=== PATIENT | male | born 1960 | race Caucasian/White ===

== ENCOUNTER 2016-09-13 12:48 | Inpatient (IN) ==
[2016-09-13] MEDS ORDERED: 0.9 % Sodium Chloride 1,000 ML IVC ONE ×2 (13:25→13:55)
[2016-09-13] MEDS ORDERED: *HR* Morphine 2 MG/ML SYRINGE IVP ONE (13:25)
[2016-09-13] MEDS ORDERED: Ondansetron 4 MG/2 ML VIAL IVP ONE (13:25)
[2016-09-13 13:29] LABS: Basophils % 0.2 %; Eosinophils # 0.5 K/mcL (0.0-0.6); Eosinophils % 2.8 %; Hematocrit 36.1 % (37.5-50.1); Hemoglobin 11.1 g/dL (12.9-16.9); Immature Granulocytes % 1.2 % (0-4); Lymphocytes # 0.9 K/mcL (0.6-4.6); Lymphocytes % 5.4 %; Mean Corpuscular HGB Conc 30.7 g/dL (31.6-35.5); Mean Corpuscular Hemoglobin 22.3 pg (28.0-33.3); Mean Corpuscular Volume 72.5 fL (83.0-100.0); Mean Platelet Volume 9.3 fL (9.4-12.4); Monocytes # 1.4 K/mcL (0.0-1.3); Monocytes % 8.4 %; Neutrophils # 13.9 K/mcL (1.6-8.9); Platelet Count 598 K/mcL (140-400); Red Blood Count 4.98 M/mcL (4.19-5.50)
[2016-09-13] MEDS ORDERED: Ipratropium/Albuterol Neb 3 ML IH ONE (13:34)
--- NOTE | 2016-09-13 13:38 | Emergency Department Note ---
Disposition Clinical Impression: Liver metastases Abdominal pain Qualifiers: Abdominal location: generalized Qualified Code(s): R10.84 - Generalized abdominal pain Leukocytosis Qualifiers: Leukocytosis type: other Qualified Code(s): D72.828 - Other elevated white blood cell count BC (bronchogenic carcinoma) Qualifiers: Laterality: unspecified laterality Qualified Code(s): C34.90 - Malignant neoplasm of unspecified part of unspecified bronchus or lung Disposition: Admitted As Inpatient Condition: Fair Abdominal Pain HPI - General Chief Complaint: ED Abdominal Pain Stated Complaint: Abdominal Pain/SOB Time Seen by Provider: 09/13/16 13:05 Source: patient, family Mode of arrival: ambulatory Limitations: no limitations Nursing Notes Reviewed: Yes Vital Signs Reviewed: Yes - History of Present Illness HPI Narrative: 56 year old gentleman history of COPD, hypertension, coronary artery disease presents for evaluation of worsening abdominal pain. Patient states the abdominal pain is sharp and noticed it over the past 3 weeks. Notes that the pain is primarily left lower quadrant but noted to be more diffuse. No aggravating or alleviating factors. No history of diverticulosis. No history of appendectomy and cholecystectomy. Subjective fevers. Reports some nausea and spitting up. Patient also notes some blood in his stool. No history of GI bleed. No anticoagulation besides aspirin and Plavix. No diarrhea or constipation. No dysuria or hematuria. Patient does state that he has a history of COPD oxygen dependent. Patient was recently treated for pneumonia approximately a month ago. Patient denies any chest pain but does note dyspnea. Patient does have a history of right [id number] amputation from a traumatic injury in the past. Pain Scale: 10 - Related Data Home Medications Medication Instructions Recorded Confirmed Albuterol Sulfate [Proair Hfa] 2 puff IH Q6H PRN 09/13/16 09/13/16 Aspirin [Lo-Dose Aspirin EC] 243 mg PO DAILY 09/13/16 09/13/16 Atorvastatin Calcium [Lipitor] 80 mg PO DAILY 09/13/16 09/13/16 Clopidogrel [Plavix] 75 mg PO DAILY 09/13/16 09/13/16 Lisinopril [Zestril] 10 mg PO DAILY 09/13/16 09/13/16 Metoprolol XL (24 HR) Succ [Toprol 25 mg PO DAILY 09/13/16 09/13/16 XL] Allergies Allergy/AdvReac Type Severity Reaction Status Date / Time No Known Allergies Allergy Verified 06/06/15 14:44 All systems ED: reviewed and negative except as stated. Constitutional: Reports: as per HPI, fever Eyes: Reports: as per HPI ENT ED: Reports: as per HPI Cardiovascular: Reports: as per HPI. Denies: chest pain Respiratory: Reports: as per HPI, cough, dyspnea Gastrointestinal: Reports: as per HPI, abdominal pain, nausea, vomiting. Denies : diarrhea, constipation Genitourinary: Reports: as per HPI Musculoskeletal: Reports: as per HPI Integumentary: Reports: as per HPI Neurological: Reports: as per HPI Psychiatric: Reports: as per HPI Endocrine: Reports: as per HPI Hematological/Lymphatic: Reports: as per HPI Allergic/Immunologic: Reports: as per HPI Abdominal Pain PMH - Past Medical History Medical history: Reports: non-contributory, COPD, coronary artery disease, hypertension, myocardial infarction Male Surgical History: Reports: angioplasty/stent Psychiatric history: Reports: no psych history - Social History Smoking status: Former smoker Alcohol use: Reports: none Drug use: Reports: none Physical Exam - General Limitations: no limitations General appearance: alert, other (Acute distress.) - Head Head exam: atraumatic, normocephalic, normal inspection - Eye Eye exam: Present: normal appearance, EOMI - ENT ENT exam: normal exam, mucous membranes moist - Neck Neck exam: Present: normal inspection, trachea midline - Chest Chest inspection: Present: normal inspection, symmetric chest wall rise. Absent : tenderness - Respiratory Respiratory exam: Present: accessory muscle use, prolonged expiratory phase - Cardiovascular Cardiovascular exam: Present: regular rate, tachycardia - Abdominal Exam Abdominal exam: Present: soft, tenderness (Diffuse abdominal tenderness), distention, guarding (Voluntary). Absent: rebound - Extremities Exam Extremities exam: Present: normal inspection, other (Right below the knee amputation) - Back Exam Back exam: Present: normal inspection - Neurological Exam Neurological exam: Present: alert, oriented X3 - Skin Skin exam: Present: warm, dry, intact, normal color Course Course Narrative: Patient was seen and examined. Patient appears in moderate discomfort. Patient is tachycardic hypertensive. Patient's abdominal exam shows diffuse tenderness primarily the left lower quadrant. Patient's been having this worsening pain over the past 3 weeks. Patient will get abdominal pelvic imaging. Labs. Symptom actually with IV fluids and hydration. Patient will also get EKG and chest x-ray for cardiopulmonary monitoring. Disposition pending - Reevaluation(s) Reevaluation #1: Patient lab work review shows that shows that he does have leukocytosis given concerns for sepsis. Patient restarted antibiotics. Patient is getting IV fluid hydration. Awaiting CT imaging. Time: 13:56 Reevaluation #2: Plan of care updated with the family. Questions answered. Patient stable. Time: 14:23 Reevaluation #3: Patient seen and examined. Patient states that his pain is better controlled. Explained CT findings to the patient. Concerns for malignancy. This was discussed and verbalized. Patient does have concerning CT findings. All questions were answered to the best of my ability at that time. Time: 15:42 - Consultations Consultation #1: Spoke with Dr. Somers regarding CT findings and whether a GB ultrasound would be indicated. Recommends a hepatobiliary scan as an inpatient. Time: 15:17 Vital Signs Temperature 99.1 F 09/13/16 12:49 Pulse Rate 130 09/13/16 12:49 Respiratory Rate 20 09/13/16 12:49 Blood Pressure 156/92 09/13/16 12:49 O2 Sat by Pulse Oximetry 90 09/13/16 12:49 Temperature 99.1 F 09/13/16 12:49 Pulse Rate 130 09/13/16 12:49 Respiratory Rate 18 09/13/16 17:13 Blood Pressure 127/87 09/13/16 17:13 O2 Sat by Pulse Oximetry 92 09/13/16 14:17 Oxygen Delivery Oxygen Delivery Nasal Cannula Abdominal Pain - [facility] Narrative Medical decision making narrative: 86-year-old male presents for evaluation of abdominal pain. Patient states the pain is been worse over the past 3 weeks. Patient did have an exquisitely tender abdomen. Patient was tachycardic and hypertensive. Concerns for infection. Patient was given 2 L of fluid abdominal labs including a lactate. Chest x-ray as well as CT imaging of the abdomen and pelvis. CT imaging is concerning for metastatic disease. Patient also has findings consistent with possible bronchogenic carcinoma. A she is a former smoker but his COPD oxygen dependent. These findings were discussed with patient at bedside. Concerns of cancer. Also CT findings showed color wall thickening and recommended ultrasound for further evaluation. Spoke with surgery who recommended a HIDA scan as a possible inpatient to further evaluate. Patient was started on antibiotics prior to diagnosis of metastatic disease. Patients receiving Cipro and Flagyl. Patient's pain was controlled in the ER. Patient be admitted to the hospitalist service for further evaluation monitoring. - Lab Data Lab results reviewed: Yes I reviewed the patient's lab results. Result diagrams: 09/13/16 13:20 09/13/16 13:20 Lab Results 09/13/16 09/13/16 09/13/16 Range/Units 13:20 13:20 13:20 WBC 17.0 H (4.3-11.1) K/mcL RBC 4.98 (4.19-5.50) M/mcL Hgb 11.1 L (12.9-16.9) g/dL Hct 36.1 L (37.5-50.1) % MCV 72.5 L (83.0-100.0) fL MCH 22.3 L (28.0-33.3) pg MCHC 30.7 L (31.6-35.5) g/dL RDW 17.0 H (11.5-14.5) % Plt Count 598 H (140-400) K/mcL MPV 9.3 L (9.4-12.4) fL Immature Gran % 1.2 (0-4) % Seg Neutrophils % 82.0 % Lymphocytes % 5.4 % Monocytes % 8.4 % Eosinophils % 2.8 % Basophils % 0.2 % Neutrophils # 13.9 H (1.6-8.9) K/mcL Lymphocytes # 0.9 (0.6-4.6) K/mcL Monocytes # 1.4 H (0.0-1.3) K/mcL Eosinophils # 0.5 (0.0-0.6) K/mcL Basophils # 0.0 (0.0-0.2) K/mcL Sodium 136 (136-145) mEq/L Potassium 4.3 (3.5-4.5) mEq/L Chloride 99 (98-109) mEq/L Carbon Dioxide 26 (19-29) mEq/L BUN 23 (8-26) mg/dL Creatinine 1.16 (0.72-1.25) mg/dL Est GFR ( Amer) > 60 (> 60) Est GFR (Non-Af Amer) > 60 (> 60) BUN/Creatinine Ratio 20 (6-26) Glucose 144 H (70-99) mg/dL Calculated Osmolality 288 (280-300) Lactic Acid 1.9 (0.5-2.2) mmol/L Calcium 9.6 (8.6-10.8) mg/dL Total Bilirubin 0.4 (0.2-1.2) mg/dL Direct Bilirubin 0.2 (0.0-0.5) mg/dL Indirect Bilirubin 0.2 (0.0-1.2) mg/dL AST 26 (5-34) Units/L ALT 18 (0-55) Units/L Alkaline Phosphatase 309 H (38-126) Units/L Troponin I (0-0.03) ng/mL Serum Total Protein 7.8 (6.0-8.3) g/dL Albumin 1.9 L (3.5-5.0) g/dL Globulin 5.9 H (2.4-3.5) g/dL Albumin/Globulin Ratio 0.3 L (1.1-2.2) Amylase 81 (25-125) Units/L Lipase 33 (8-78) Units/L 06//17 Range/Units 13:20 WBC (4.3-11.1) K/mcL RBC (4.19-5.50) M/mcL Hgb (12.9-16.9) g/dL Hct (37.5-50.1) % MCV (83.0-100.0) fL MCH (28.0-33.3) pg MCHC (31.6-35.5) g/dL RDW (11.5-14.5) % Plt Count (140-400) K/mcL MPV (9.4-12.4) fL Immature Gran % (0-4) % Seg Neutrophils % % Lymphocytes % % Monocytes % % Eosinophils % % Basophils % % Neutrophils # (1.6-8.9) K/mcL Lymphocytes # (0.6-4.6) K/mcL Monocytes # (0.0-1.3) K/mcL Eosinophils # (0.0-0.6) K/mcL Basophils # (0.0-0.2) K/mcL Sodium (136-145) mEq/L Potassium (3.5-4.5) mEq/L Chloride (98-109) mEq/L Carbon Dioxide (19-29) mEq/L BUN (8-26) mg/dL Creatinine (0.72-1.25) mg/dL Est GFR ( Amer) (> 60) Est GFR (Non-Af Amer) (> 60) BUN/Creatinine Ratio (6-26) Glucose (70-99) mg/dL Calculated Osmolality (280-300) Lactic Acid (0.5-2.2) mmol/L Calcium (8.6-10.8) mg/dL Total Bilirubin (0.2-1.2) mg/dL Direct Bilirubin (0.0-0.5) mg/dL Indirect Bilirubin (0.0-1.2) mg/dL AST (5-34) Units/L ALT (0-55) Units/L Alkaline Phosphatase (38-126) Units/L Troponin I 0.02 (0-0.03) ng/mL Serum Total Protein (6.0-8.3) g/dL Albumin (3.5-5.0) g/dL Globulin (2.4-3.5) g/dL Albumin/Globulin Ratio (1.1-2.2) Amylase (25-125) Units/L Lipase (8-78) Units/L - Radiology Data Radiology results reviewed: Yes I reviewed the patient's radiology results. Abdomen/Pelvis CT 09/13/16 13:35 IMPRESSION: 1. Irregular soft tissue mass in the left lower lobe partially visualized measures at least 4.9 x 2.5 cm most suspicious for neoplasm such as bronchogenic carcinoma until proven otherwise. Left lower lobe and lingular lung nodules suspicious for pulmonary metastatic disease. 2. There is interlobular septal thickening in the lung bases which may represent mild pulmonary edema, however lymphangitic carcinomatosis could have a similar appearance. 3. Innumerable hepatic masses most consistent with hepatic metastatic disease. 4. There is nonspecific gallbladder wall thickening and cholelithiasis. No gross dilatation. If there is concern for acute cholecystitis, then further characterization with right upper quadrant ultrasound is suggested. 5. Multiple large pericardiac and retroperitoneal lymph nodes suspicious for metastatic lymphadenopathy. 6. Indeterminate right adrenal gland nodule measures 0.7 cm. D/ / Ian Loyd MD / Ian Loyd MD Interpreting Provider: Ian Loyd MD Chest X-Ray 09/13/16 13:38 IMPRESSION: New, diffuse bilateral interstitial opacities may reflect interstitial edema or atypical infection. D/ / 09/13/2016 14:05:28 Lili Jiang MD / shena Interpreting Provider: Lili Jiang MD - EKG Data EKG attestation: Yes I reviewed and interpreted this EKG. EKG shows normal: sinus rhythm Rate: tachycardia Rhythm: NSR [place]/QRS: normal When compared to previous EKG there are: changes noted Interpretation: no acute changes, nonspecific ST-T wave changes S.B.A.R. - S.B.AEli Situation: Demographics Background: Presenting Complaint Assessment: Vital Signs, Course and respsone to treatment, Patient/Family Expectation Recommendation: Barrier(s) to disposition, Recommendation based on pending studies, treatments, or consults S.B.A.Seamus Report Given to: Dr. Patric Leung Repor Time: 16:21 Attestation Statement - Attestation Attestation: I examined this patient and my medical decision-making was reviewed with the HOME PERFORMANCE LABORER/PA/Advanced Practice Nurse/Resident Physician. I agree with the documented findings, disposition and treatment plan as described except to the extent set forth below. 56-year-old male comes the ED because of abdominal pain and cough and dyspnea. He has had coughing and dyspnea intermittently for the past couple weeks. He recently completed a course of antibiotics without 70. He is now had about 2-3 week progression of diffuse abdominal pain. The pain seems to be worse in the left lower quadrant. No associated dysuria, hematuria or polyuria. No diarrhea or hematochezia. No pains constipation. Denies flank or back pain. He did have mild, blunt trauma to the lower abdomen 3-4 weeks ago. Continues with coughing productive of yellow sputum. Intermittent dyspnea. He stopped smoking in April of this year. He has had previous ND and had coronary stents placed. He is on Plavix but has not taken his dose in the past 24 hours. Patient is in mild respiratory distress, slightly tachypneic. Oropharynx is clear mucous membranes dry. Neck supple. Trachea midline. Chest with diffuse biphasic wheezes in all lung hutson. No focal consolidation appreciate. Her exam tachycardic, regular. Abdomen bowel sounds are present but hypoactive. He has diffuse abdominal tenderness, more so in the left lower quadrant. Flanks are nontender. Extremities he has a right below-knee amputation. Skin well perfused. IVs placed and she was given a liter of saline along with IV pain control with reduction of his heart rate. He received DuoNeb treatments for his wheezing with some improvement. Chest x-ray notes diffuse interstitial changes suggestive of pneumonitis versus pulmonary edema. Severe leukocytosis with white count of 17,000. Renal function is normal. EKG no acute changes. CT of the abdomen consistent with diffuse metastatic lesions throughout the liver. He has a localized masses left lower lobe suggestive of bronchogenic carcinoma as well as extensive retrocardiac and mediastinal adenopathy. All this is suggestive of a diffuse metastatic process from a bronchogenic carcinoma. Is also notation of a thickening of the gallbladder wall with some surrounding fluid and stranding. Given that it is Wednesday here unable to electively order Doppler ultrasound. Case discussed with on-call surgery who did not feel it warranted emergent gallbladder ultrasound. He will be admitted on IV antibiotics for treatment of his pneumonitis, pain control measures and further evaluation of his metastatic process.
[2016-09-13 13:44] LABS: Alanine Aminotransferase 18 Units/L (0-55); Albumin 1.9 g/dL (3.5-5.0); Albumin/Globulin Ratio 0.3 (1.1-2.2); Alkaline Phosphatase 309 Units/L (38-126); Amylase 81 Units/L (25-125); Aspartate Amino Transferase 26 Units/L (5-34); BUN/Creatinine Ratio 20 (6-26); Bilirubin,Direct 0.2 mg/dL (0.0-0.5); Bilirubin,Indirect 0.2 mg/dL (0.0-1.2); Bilirubin,Total 0.4 mg/dL (0.2-1.2); Blood Urea Nitrogen 23 mg/dL (8-26); Calcium 9.6 mg/dL (8.6-10.8); Carbon Dioxide 26 mEq/L (19-29); Chloride 99 mEq/L (98-109); Globulin 5.9 g/dL (2.4-3.5); Glucose 144 mg/dL (70-99); Lipase 33 Units/L (8-78); Osmolality,Calculated 288 (280-300); Potassium 4.3 mEq/L (3.5-4.5); Sodium 136 mEq/L (136-145); Total Protein 7.8 g/dL (6.0-8.3); eGFR For African Americans > 60 (> 60); eGFR For Non-African Americans > 60 (> 60)
[2016-09-13] MEDS ORDERED: MetroNIDAZOLE 500 MG/100 ML 500 MG/100 ML BAG IVPB ONE (13:55)
[2016-09-13] MEDS ORDERED: *HR* HYDROmorphone (PF) 1 MG/ML SYRINGE IVP ONE (16:26)
--- NOTE | 2016-09-13 17:27 | Event Note ---
Date of Encounter: 09/13/16 Time of Encounter: 17:22 Patient seen and examined with nurse practitioner. Patient presents with the main complain of abdominal pain as well as increased shortness of breath and productive cough. Unfortunately was found on imaging to have a left lung mass 4.92.5 cm suspicious for malignancy as well as multiple hypo densities in the liver concerning for metastatic disease. He is a lifelong smoker. I have discussed with him that we will need biopsy probably of the left lung mass. He is on Plavix and aspirin he takes Plavix for coronary artery disease last stent was placed 2 years ago. Await oncology service recommendations with regards to biopsy and Plavix maybe then suspended. Patient also has COPD exacerbation you will get [id number] nebulizer treatment. Questionable cholecystitis. hyda scan will be performed. He will be covered with Levaquin for acute bronchitis and questionable cholecystitis.
[2016-09-13] MEDS ORDERED: Furosemide 20 MG/2 ML VIAL IVP ONE (18:53)
--- NOTE | 2016-09-13 19:41 | Internal Med History&Physical ---
Date of Encounter: 09/13/16 Time of Encounter: 17:00 Assessment and Plan (1) Abdominal pain Current visit: Yes Status: Acute Assess: Mr. Hernandez presents with chief complaint of abdominal pain for the past three weeks. Mr. Hernandez describes the abdominal pain as sharp and located in the LLQ with no aggravating or alleviating factors. He also reports nausea with some spitting up, but denies vomiting. CT scan of the abdomen/pelviswith contrast dated 09/13/16 shows irregular soft tissue mass in the left lower lobe partially visualized measures at least 4.92.5 cm, most suspicious for neoplasm such as oncogenic carcinoma until proven otherwise. Left lower lobe and lingular lung nodule suspicious for pulmonary metastatic disease. There is interlobular septal thickening in the lung bases which may represent pulmonary edema; however, lymphangitic carcinomatosis could have a similar appearance. Innumerable hepatic masses most consistent with hepatic metastatic disease. There is also nonspecific gallbladder wall thickening: Thesis. No biliary ductal dilation and there is a concern for acute cholecystitis then further characterization with upper right quadrant ultrasound is suggested. Large pericardiac and retroperitoneal lymph nodes suspicious for metastatic lymphadenopathy. Indeterminate right adrenal gland nodule measures 0.7 cm. Plan: Oncology consult ordered Hold Plavix Hold Heparin as DVT prophylaxis due to possible biopsy of lung NM hepatobiliary ordered to look for acute cholecyctitis Zofran ordered for N/V Protonix IVP ordered Hydromorphone ordered 1 mg IVP Q4 as need for pain Monitor patient for breakthrough pain Qualifiers: Abdominal location: left lower quadrant Qualified Code(s): R10.32 - Left lower quadrant pain (2) COPD exacerbation Current visit: Yes Status: Acute Assess: Patient presents with history of chronic COPD and acute COPD exacerbation. Patient reports smoking 1 pack per day and quitting April 2016. Plan: Prednisone 20 mg daily ordered Supplemental O2 ordered with titration if SpO2 <92% Continuous cardiac monitoring Ipratropium/albuterol 3 mL IH Q6 ordered Monitor patient and vital signs (3) SIRS (systemic inflammatory response syndrome) Current visit: Yes Status: Acute Assess: Patient presents with WBC of 17.0 and HR of 130. Currently meets SIRS criteria with no obvious source of infection. Will monitor patient closely according to SIRS criteria for worsening symptoms which would suggest sepsis. Plan: Blood cultures ordered Sputum cultures ordered Urine cultures ordered Lactic acid ordered INR/APTT ordered IV levaquin ordered for infection coverage until culture results are available Monitor patient and vital signs (4) CAD (coronary artery disease) Current visit: Yes Status: Chronic Assess: Presents with history of chronic coronary artery disease. Plan: Continuous cardiac telemetry Continue aspirin therapy SCD ordered for left leg Qualifiers: Coronary Disease-Associated Artery/Lesion type: unspecified vessel or lesion type [place] vs. transplanted heart: [place] heart Associated angina: angina presence unspecified Qualified Code(s): I25.10 - Atherosclerotic heart disease of [place] coronary artery without angina pectoris (5) Hypertension Current visit: Yes Status: Chronic Assess: Patient presents with chronic history of hypertension. Plan: Continue Metoprolol Continue Lipitor Follow-up labs ordered Qualifiers: Hypertension type: essential hypertension Qualified Code(s): I10 - Essential (primary) hypertension (6) DVT prophylaxis Current visit: Yes Status: Acute Assess: Patient was placed on DVT prophylaxis due to history of CAD and current inpatient status per protocol. Plan: SCD ordered for left leg Continue aspirin therapy Hold Heparin due to possible biopsy of lung and current report of blood in stool Internal Medicine - H&P: HPI Chief complaint: Abdominal pain r/t suspected malignant neoplasm of lung Admitted From: Emergency Dept Plans for Post Hospital Care: Home History of present illness: Mr. Hernandez is a 56 year old male presents from the ED with chief complaint of abdominal pain for the past three weeks. Mr. Hernandez describes the abdominal pain as sharp and located in the LLQ with no aggravating or alleviating factors. He also reports nausea with some spitting up, but denies vomiting. Patient reports having a productive cough for the past 3 weeks with sputum that ranges in color from white to yellow. Patient also reports night sweats and fever for the past three weeks. He also reports having bright red blood in his stool for the past two weeks. Mr. Hernandez denies any history of diverticulosis, appendectomy, cholecystectomy, diarrhea, constipation, or chest pain. Patient does report SOB related to his cough for the past three weeks which has become progressively worse. 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 Patient was evaluated by pulmonology recently for home oxygen and CPAP use at night which the patient states has not begun yet. Mr. Hernandez is a previous smoker who reports quitting in April 2016 having smoked 1 PPD. He reports drinking during the week and using marijuana occasionally. Patient to be admitted as inpatient status with cultures ordered for blood, urine, and sputum due to his WBC of 17.0. Patient to receive IV levaquin for infection coverage until culture results are available. Heparin therapy will be held due to patient's current report of GI bleeding and possibility of lung biopsy. Patient to be monitored closely for continuing signs of infection, worsening SOB, and tachycardia based on SIRS criteria which he currently meets. Past Med Surg Social Fam HX - Past Medical History Source: patient Medical history: COPD, coronary artery disease, hypertension, myocardial infarction Psychiatric history: anxiety - Past Surgical History Surgical History: other (Amputation of right leg below knee due to traumatic accident) - Social History Smoking Status: Former smoker Packs per day: 1 PPD Smokeless Tobacco Status: No Alcohol use: occasionally Drug use: marijuana Occupational status: unemployed Current living situation: Home, With Family Activity Level: Independent ambulation Recent Out of Country Travel Within the Last 8 Weeks: No Exposure or Possible Exposure to Illness During Travel: No - Family History Mother Race: Family Member Ethnicity: Non- Living Status: Still Living Hx Family Respiratory Disorders: Yes Father Race: Family Member Ethnicity: Non- Living Status: Age at : 67 Cause of : Brain aneurysm Hx Family Cardiac Disorders: Yes (Brain aneurysm) Sister Race: Family Member Ethnicity: Non- Living Status: Still Living Hx Family Cancer: Yes (Breast) Internal Medicine - H&P: Meds Albuterol Sulfate [Proair Hfa] 2 puff IH Q6H PRN 09/13/16 [History] Aspirin [Lo-Dose Aspirin EC] 243 mg PO DAILY 09/13/16 [History] Atorvastatin Calcium [Lipitor] 80 mg PO DAILY 09/13/16 [History] Clopidogrel [Plavix] 75 mg PO DAILY 09/13/16 [History] Lisinopril [Zestril] 10 mg PO DAILY 09/13/16 [History] Metoprolol XL (24 HR) Succ [Toprol XL] 25 mg PO DAILY 09/13/16 [History] Allergies No Known Allergies Allergy (Verified 06/06/15 14:44) All Systems PM: A 10-system review of systems was performed and is negative for pertinent findings except as documented above in the HPI. - Constitutional Constitutional: as per HPI, fever(s), night sweats - EENT Eyes: no change in vision, no discharge, no pain, no photophobia Ears: no ear discharge, no ear pain, no tinnitus Nose, mouth and throat: no dysphagia, no nasal discharge, no neck pain, no sore throat - Breasts Breasts: as per HPI - Cardiovascular Cardiovascular ROS IM: as per HPI, diaphoresis, dyspnea on exertion - Respiratory Respiratory: as per HPI, cough, dyspnea on exertion, change in phlegm color - Gastrointestinal Gastrointestinal: as per HPI, abdominal pain, hematochezia, nausea - Genitourinary Genitourinary ROS male: as per HPI - Musculoskeletal Musculoskeletal ROS IM: no numbness, no tingling - Integumentary Integumentary IM: no rash, no unusual bruising - Neurological Neurological ROS: no confusion, no convulsions, no focal weakness, no numbness, no tingling, no tremor(s) - Psychiatric Psychiatric: as per HPI, anxiety - Endocrine Endocrine IM: as per HPI, excessive sweating - Hematologic/Lymphatic Hematologic/Lymphatic: no easy bruising - Allergic/Immunologic Allergic/Immunologic: as per HPI - Constitutional Vitals: Temp Pulse Resp BP Pulse Ox 99.1 F 130 18 127/87 92 09/13/16 12:49 09/13/16 12:49 09/13/16 17:13 09/13/16 17:13 09/13/16 14:17 General appearance: Present: cooperative, mild distress (SOB), A&O X 3, pleasant , answers questions appropriately - Head Head exam: Present: atraumatic, normocephalic - Eye Eye exam: Present: PERRL, conjuntiva pink, sclera anicteric Pupils: Present: PERRL - ENT ENT exam: Present: normal exam, normal external ear exam - Neck Neck exam general surgery: Present: supple, trachea midline. Absent: lymphadenopathy - Respiratory Respiratory exam: Present: respiratory distress (Mild SOB) - Cardiovascular Cardiovascular exam: Present: tachycardia - GI/Abdominal GI/Abdominal exam: Present: normal bowel sounds, soft, no peritoneal signs. Absent: distended, tenderness - Rectal Rectal exam: Present: deferred - Additional comments: exam deferred. - Extremities Exam Extremities exam: Present: normal inspection, warm. Absent: calf tenderness, cyanotic, pedal edema - Back Exam Back exam: Present: normal inspection - Neurological Exam Neurological exam: Present: CN II-XII intact, oriented X3, no focal deficits. Absent: pronater drift, facial droop, speech deficit - Psychiatric Psychiatric exam: Present: normal affect, normal mood - Skin Skin exam: Present: dry, intact Internal Med - H&P Results - Labs CBC & Chem 7: 09/13/16 13:20 09/13/16 13:20 - EKG Data EKG shows normal: sinus rhythm Rate: tachycardia - EKG Data Prior EKG available for review: yes When compared to previous EKG: there are significant changes EKG comments: 09/13/16 19:50 EKG dated 01/25/14 shows sinus rhythm with anteroseptal ST elevation, possible early repolarization, inferior/lateral ST-T changes are nonspecific. EKG dated 09/13/16 shows sinus tachycardia and abnormal rhythm ECG. - Diagnostic Studies Chest x-ray Additional comments: 1-View CXR dated 09/13/16 shows: Normal heart size. There are cystic pleural interstitial opacities. No focal consolidation. No evidence of pleural effusion or pneumothorax. Overall Impression: New, diffuse bilateral interstitial opacities may reflect interstitial edema or atypical infection. CT scan - abdomen Additional comments: Impressions Abdomen/Pelvis CT 09/13/16 13:35 IMPRESSION: 1. Irregular soft tissue mass in the left lower lobe partially visualized measures at least 4.9 x 2.5 cm, most suspicious for neoplasm such as bronchogenic carcinoma until proven otherwise. Left lower lobe and lingular lung nodules suspicious for pulmonary metastatic disease. 2. There is interlobular septal thickening in the lung bases which may represent pulmonary edema; however, lymphangitic carcinomatosis could have a similar appearance. 3. Innumerable hepatic masses most consistent with hepatic metastatic disease. 4. There is nonspecific gallbladder wall thickening and cholelithiasis. No biliary ductal dilatation. If there is concern for acute cholecystitis, then further characterization with right upper quadrant ultrasound is suggested. 5. Multiple large pericardiac and retroperitoneal lymph nodes suspicious for metastatic lymphadenopathy. 6. Indeterminate right adrenal gland nodule measures 0.7 cm. D/ / 09/13/2016 15:10:37 Ian Loyd MD / [email or web address] Interpreting Provider: Ian Loyd MD Chest X-Ray 09/13/16 13:38 IMPRESSION: New, diffuse bilateral interstitial opacities may reflect interstitial edema or atypical infection. D/ / 09/13/2016 14:05:28 Lili Jiang MD / [email or web address] Interpreting Provider: Lili Jiang MD
[2016-09-13] MEDS: predniSONE 20 MG TABLET PO SCH (20:09)
[2016-09-13] MEDS: *HR* HYDROmorphone (PF) 1 MG/ML SYRINGE IVP PRN (20:15)
[2016-09-13 20:52] LABS: INR 1.2; Prothrombin Time 13.4 Seconds (9.4-12.1)
[2016-09-13] MEDS: Ipratropium/Albuterol Neb 3 ML IH SCH (21:45)
[2016-09-13] MEDS ORDERED: *HR* Heparin 5,000 UNIT/ML VIAL SQ SCH (22:00)
[2016-09-14] MEDS: *HR* HYDROmorphone (PF) 1 MG/ML SYRINGE IVP PRN ×5 (00:20→23:22)
[2016-09-14 01:19] LABS: Bilirubin,Urine Negative (Negative); Blood,Urine Negative (Negative); Clarity,Urine Clear (Clear); Color,Urine Yellow (Yellow); Glucose,Urine (UA) Normal (Normal); Ketones,Urine Negative (Negative); Leukocyte Esterase,Urine Trace (Negative); Nitrite,Urine Negative (Negative); PH,Urine 5.5 pH Units (5.0-8.0); Protein,Urine Negative (Neg-Trace); Urobilinogen,Urine Normal (Normal)
[2016-09-14 01:20] LABS: Bacteria,Urine None Seen per hpf (None-Few); Hyaline Casts,Urine None Seen per lpf (None-Few); Squamous Epithelial Cell,Urine Many per lpf (None-Few)
[2016-09-14] MEDS: Ipratropium/Albuterol Neb 3 ML IH SCH ×4 (04:38→21:14)
[2016-09-14 06:01] LABS: Basophils % 0.2 %; Eosinophils % 0.3 %; Hematocrit 32.6 % (37.5-50.1); Hemoglobin 9.7 g/dL (12.9-16.9); Immature Granulocytes % 1.4 % (0-4); Lymphocytes # 0.8 K/mcL (0.6-4.6); Lymphocytes % 5.7 %; Mean Corpuscular HGB Conc 29.8 g/dL (31.6-35.5); Mean Corpuscular Hemoglobin 22.4 pg (28.0-33.3); Mean Corpuscular Volume 75.3 fL (83.0-100.0); Mean Platelet Volume 9.5 fL (9.4-12.4); Monocytes # 0.6 K/mcL (0.0-1.3); Monocytes % 4.2 %; Neutrophils # 12.8 K/mcL (1.6-8.9); Platelet Count 502 K/mcL (140-400); Red Blood Count 4.33 M/mcL (4.19-5.50); Red Cell Distribution Width 17.2 % (11.5-14.5); Segmented Neutrophils % 88.2 %
[2016-09-14 06:16] LABS: Alanine Aminotransferase 14 Units/L (0-55); Albumin/Globulin Ratio 0.3 (1.1-2.2); Alkaline Phosphatase 288 Units/L (38-126); Aspartate Amino Transferase 20 Units/L (5-34); BUN/Creatinine Ratio 18 (6-26); Bilirubin,Direct 0.2 mg/dL (0.0-0.5); Bilirubin,Indirect 0.1 mg/dL (0.0-1.2); Bilirubin,Total 0.3 mg/dL (0.2-1.2); Blood Urea Nitrogen 17 mg/dL (8-26); Calcium 9.3 mg/dL (8.6-10.8); Carbon Dioxide 26 mEq/L (19-29); Chloride 100 mEq/L (98-109); Globulin 5.5 g/dL (2.4-3.5); Glucose 121 mg/dL (70-99); Magnesium 1.7 mg/dL (1.6-2.6); Osmolality,Calculated 279 (280-300); Sodium 133 mEq/L (136-145); Total Protein 7.3 g/dL (6.0-8.3); eGFR For African Americans > 60 (> 60); eGFR For Non-African Americans > 60 (> 60)
[2016-09-14 06:17] LABS: Albumin 1.8 g/dL (3.5-5.0)
[2016-09-14 07:15] LABS: C-Reactive Protein 242 mg/L (Less than 5)
[2016-09-14] MEDS: Aspirin Enteric Coated 81 MG Tablet PO SCH (09:51)
[2016-09-14] MEDS: predniSONE 20 MG TABLET PO SCH (09:51)
[2016-09-14] MEDS: Metoprolol XL (24 HR) Succ 25 MG TAB.ER.24H PO SCH (09:52)
[2016-09-14] MEDS ORDERED: *HR* LORazepam 1 MG TABLET PO ONE (10:11)
[2016-09-14] MEDS: Nicotine 14 MG PATCH.TD24 TD SCH (10:13)
[2016-09-14] MEDS: Pantoprazole 40 MG VIAL IVP SCH (10:13)
[2016-09-14] MEDS: Levofloxacin 750 MG/150 ML 750 MG/150 ML BAG IVPB SCH (10:13)
[2016-09-14] MEDS: Ketorolac 30 MG/ML VIAL IVP PRN ×2 (10:18→16:55)
--- NOTE | 2016-09-14 14:10 | Internal Med Progress Note ---
Date of Encounter: 09/14/16 Time of Encounter: 14:07 - Assessment and plan (1) Primary lung malignancy of unknown cell type Current Visit: Yes Status: Acute Assessment and plan: Presented with a history of cough for the last 3 weeks, treated with steroids and antibiotics as outpatient which did not resolve his symptoms. CT scan of the abdomen/pelviswith contrast dated 09/13/16 shows irregular soft tissue mass in the left lower lobe partially visualized measures at least 4.9 2.5 cm, most suspicious for neoplasm such as oncogenic carcinoma until proven otherwise. Left lower lobe and lingular lung nodule suspicious for pulmonary metastatic disease. There is interlobular septal thickening in the lung bases which may represent pulmonary edema; however, lymphangitic carcinomatosis could have a similar appearance. Innumerable hepatic masses most consistent with hepatic metastatic disease. will need biopsy for diagnosis, most likely liver biopsy. He reports he has not taken Plavix for the last 2 days, Plavix has been held for this time, will probably need to hold for couple more days before he can have the biopsy done. Oncology has been consulted, will consult IR for IR guided liver biopsy , will await oncology recommendation Qualifiers: Laterality: left Qualified Code(s): C34.92 - Malignant neoplasm of unspecified part of left bronchus or lung (2) Abdominal pain Current Visit: Yes Status: Acute Assessment and plan: better today possible from liver metastases CT showed nonspecific gallbladder wall thickening. No biliary ductal dilation and if there is a concern for acute cholecystitis then further characterization with upper right quadrant ultrasound is suggested. He underwent HIDA scan this morning, reports that the pain is more generalized and in right upper quadrant. Doubt that he has acute cholecystitis, will follow HIDA scan results. Qualifiers: Abdominal location: left lower quadrant Qualified Code(s): R10.32 - Left lower quadrant pain (3) Liver metastases Current Visit: Yes Status: Acute (4) COPD exacerbation Current Visit: Yes Status: Acute Assessment and plan: He was treated as COPD exacerbation on presentation with steroids and levofloxacin. Breathing seems to be better, sating 95% on 4 L of nasal cannula, will continue oral prednisone at 20 mg daily and levofloxacin for 5 days. (5) CAD (coronary artery disease) Current Visit: Yes Status: Chronic Assessment and plan: Denies any chest pain, continue home medications except Plavix. Plavix is being held for anticipation of biopsy, he reports that he has not taken Plavix for the last 2 days. Qualifiers: Coronary Disease-Associated Artery/Lesion type: unspecified vessel or lesion type [place] vs. transplanted heart: [place] heart Associated angina: angina presence unspecified Qualified Code(s): I25.10 - Atherosclerotic heart disease of [place] coronary artery without angina pectoris (6) Hypertension Current Visit: Yes Status: Chronic Assessment and plan: Blood pressure stable, continue home medications. Qualifiers: Hypertension type: essential hypertension Qualified Code(s): I10 - Essential (primary) hypertension - Subjective Interval history: Patient seen at the bedside, reports that the abdominal pain is better today however he reports generalized abdominal pain rather than right-sided abdominal pain. Denies any nausea or vomiting, complaints of cough with productive sputum, denies any hemoptysis. No fever. - Constitutional Vitals: Temp Pulse Resp BP Pulse Ox 97.4 F L 83 18 133/88 95 09/14/16 08:02 09/14/16 08:02 09/14/16 08:02 09/14/16 08:02 09/14/16 10:07 General appearance: Present: cooperative, mild distress (SOB), A&O X 3, pleasant , answers questions appropriately Exam: - Head Head exam: Present: atraumatic, normocephalic - Eye Eye exam: Present: PERRL, conjuntiva pink, sclera anicteric Pupils: Present: PERRL - ENT ENT exam: Present: normal exam, normal external ear exam - Neck Neck exam general surgery: Present: supple, trachea midline. Absent: lymphadenopathy - Respiratory Respiratory exam: Present: b/l clear, no added sounds - Cardiovascular Cardiovascular exam: Present:s1 and s2, no m/r/g - GI/Abdominal GI/Abdominal exam: Present: normal bowel sounds, soft, no peritoneal signs. Absent: distended, tenderness - Extremities Exam Extremities exam: Present: normal inspection, warm. Absent: calf tenderness, cyanotic, pedal edema - Back Exam Back exam: Present: normal inspection - Neurological Exam Neurological exam: Present: CN II-XII intact, oriented X3, no focal deficits. Absent: pronater drift, facial droop, speech deficit - Psychiatric Psychiatric exam: Present: normal affect, normal mood - Skin Skin exam: Present: dry, intact Internal Medicine: Result - Labs CBC & Chem 7: 09/14/16 05:07 09/14/16 05:07 Labs: Short CBC 09/13/16 09/14/16 Range/Units 20:38 05:07 WBC 14.5 H (4.3-11.1) K/mcL Hgb 9.7 L (12.9-16.9) g/dL Hct 32.6 L (37.5-50.1) % Plt Count 484 H 502 H (140-400) K/mcL Neutrophils # 12.8 H (1.6-8.9) K/mcL BMP 09/14/16 05:07 Sodium 133 L Potassium 5.0 H Chloride 100 Carbon Dioxide 26 BUN 17 Creatinine 0.92 Glucose 121 H Calcium 9.3 Liver Function 09/14/16 Range/Units 05:07 Total Bilirubin 0.3 (0.2-1.2) mg/dL Direct Bilirubin 0.2 (0.0-0.5) mg/dL AST 20 (5-34) Units/L ALT 14 (0-55) Units/L Alkaline Phosphatase 288 H (38-126) Units/L Albumin 1.8 L (3.5-5.0) g/dL Urine 09/13/16 Range/Units 21:45 Urine Color Yellow (Yellow) Urine Clarity Clear (Clear) Urine pH 5.5 (5.0-8.0) pH Units Ur Specific [place] 1.020 (1.010-1.025) Urine Protein Negative (Neg-Trace) mg/dL Urine Glucose (UA) Normal (Normal) mg/dL - ABG Interpretation ABG results: PT/INR, D-dimer PT 13.4 Seconds (9.4-12.1) H 09/13/16 20:38 Consult Discharge Plan - Plan Referrals: NO,PCP [Primary Care Provider] -
--- NOTE | 2016-09-14 16:31 | Electrocardiograph Report ---
[place] [id number] Test Date: 2016-09-13 Pat Name: Malcom Hernandez Department: 102 Room: 3A48 Gender: M [employer]: Msc : 1960 Requested By: Reggie Leone Order Number: [id number] Reading MD: Ne Graham Measurements Intervals [place] Rate: 124 P: 73 MI: 145 QRS: 49 QRSD: 88 T: 80 QT: 279 QTc: 353 Interpretive Statements SINUS TACHYCARDIA CONSIDER LEFT ATRIAL ENLARGEMENT ABNORMAL RHYTHM ECG Electronically Signed On 09-14-2016 16:29:09 EDT by Ne Graham
--- NOTE | 2016-09-14 18:54 | Oncology Inp Consult Note ---
Date of Encounter: 09/14/16 Time of Encounter: 17:00 Assessment and Plan (1) Liver metastases Status: Acute Assessment and plan: Patient with a left lung mass, possible metastatic disease in the liver? with adenopathy, smoking hx-need to r/o mets/malignancy on oxygen with some shortness of breath at rest, suggest holding Plavix and CT-guided biopsy of liver lesions with interventional radiology consultation. On hydromorphone as needed for pain to continue. Obtain CT imaging of the chest, CXR findings ?multiple mets vs infection. Reactive thrombocytosis/leucocytosis. Contine levafloxacin for worsening SOB/ lung infection/?obstruction Imaging findings nad bx procedures discussed briefly. Ambien for sleep as requested by patient. Plan discussed with him in detail. - Data of Consult Requesting Physician: Breanne Alvarado Primary Care Provider: PCP NO - Consult Narrative Reason for consult: lung mass, liver mets History of present illness: Mr. Hernandez is a 56 year old male with past medical history significant for coronary artery disease, hypertension, COPD, anxiety issues with symptoms of abdominal discomfort and shortness of breath productive phlegm for 3 weeks or so , denies any hemoptysis chronic smoking history quit in April 2016 hospitalized and that initially treated for pneumonia with Levaquin CT imaging was obtained due to pain which shows an irregular soft tissue mass in the left lower lobe measuring 4.9 x 2.5 cm suspicious for primary lung carcinoma, multiple liver metastatic disease, gastrohepatic lymph node periaortic lymph node aortocaval lymph node lymphadenopathy and brenda hepatis lymphadenopathy were also noted. Patient is short of breath at rest, was not able to get oxygen at home. He denies any chest pain and reports that the pain medication has helped his overall discomfort. He denies any headache or double vision but is unable to sleep. He specifically denies any bony aches or pains. 14 point review of systems otherwise negative Past Med Surg Social Fam HX - Past Medical History Medical history: COPD, coronary artery disease, hypertension, myocardial infarction Psychiatric history: anxiety - Past Surgical History Surgical History: other (Amputation of right leg below knee due to traumatic accident) - Social History Smoking Status: Former smoker Packs per day: 1 PPD Smokeless Tobacco Status: No Alcohol use: occasionally Drug use: marijuana - Family History Mother History Unknown: Yes Race: Family Member Ethnicity: Non- Living Status: Still Living Hx Family Respiratory Disorders: Yes Father Race: Family Member Ethnicity: Non- Living Status: Age at : 67 Cause of : Brain aneurysm Hx Family Cardiac Disorders: Yes (Brain aneurysm) Sister Race: Family Member Ethnicity: Non- Living Status: Still Living Hx Family Cancer: Yes (Breast) Medications and Allergies Albuterol Sulfate [Proair Hfa] 2 puff IH Q6H PRN 09/13/16 [History] Aspirin [Lo-Dose Aspirin EC] 243 mg PO DAILY 09/13/16 [History] Atorvastatin Calcium [Lipitor] 80 mg PO DAILY 09/13/16 [History] Clopidogrel [Plavix] 75 mg PO DAILY 09/13/16 [History] Lisinopril [Zestril] 10 mg PO DAILY 09/13/16 [History] Metoprolol XL (24 HR) Succ [Toprol XL] 25 mg PO DAILY 09/13/16 [History] Allergies No Known Allergies Allergy (Verified 06/06/15 14:44) Review of systems: as in HPI Oncology - Exam - Constitutional Vitals: Temp Pulse Resp BP Pulse Ox 97.7 F 103 20 145/89 88 09/14/16 14:43 09/14/16 14:43 09/14/16 15:09 09/14/16 14:43 09/14/16 15:09 General appearance: mild distress - Head Head exam: Present: atraumatic, normal inspection - Eye Eye exam: Present: sclera anicteric - ENT ENT exam: Present: mucous membranes moist - Neck Neck exam: Present: full ROM Additional comments: no palpable adenopathy - Respiratory Respiratory exam: Present: CTAB - Cardiovascular Cardiovascular exam: Present: +S1, +S2 - GI/Abdominal GI/Abdominal exam: Present: normal bowel sounds, soft Additional comments: distension - Extremities Exam Additional comments: amputation. no edema - Neurological Exam Neurological exam: Present: alert, CN II-XII intact, oriented X3 - Psychiatric Psychiatric exam: Present: anxious Oncology - Results - Labs Labs: Short CBC 09/13/16 09/14/16 Range/Units 20:38 05:07 WBC 14.5 H (4.3-11.1) K/mcL Hgb 9.7 L (12.9-16.9) g/dL Hct 32.6 L (37.5-50.1) % Plt Count 484 H 502 H (140-400) K/mcL Neutrophils # 12.8 H (1.6-8.9) K/mcL BMP 09/14/16 05:07 Sodium 133 L Potassium 5.0 H Chloride 100 Carbon Dioxide 26 BUN 17 Creatinine 0.92 Glucose 121 H Calcium 9.3 Liver Function 09/14/16 Range/Units 05:07 Total Bilirubin 0.3 (0.2-1.2) mg/dL Direct Bilirubin 0.2 (0.0-0.5) mg/dL AST 20 (5-34) Units/L ALT 14 (0-55) Units/L Alkaline Phosphatase 288 H (38-126) Units/L Albumin 1.8 L (3.5-5.0) g/dL Urine 09/13/16 Range/Units 21:45 Urine Color Yellow (Yellow) Urine Clarity Clear (Clear) Urine pH 5.5 (5.0-8.0) pH Units Ur Specific [place] 1.020 (1.010-1.025) Urine Protein Negative (Neg-Trace) mg/dL Urine Glucose (UA) Normal (Normal) mg/dL - Imaging and Cardiology CT scan - abdomen Status: image reviewed by me Consult Discharge Plan - Plan Referrals: NO,PCP [Primary Care Provider] -
[2016-09-14] MEDS ORDERED: Nicotine 14 MG PATCH.TD24 TD ONE (22:48)
[2016-09-15] MEDS: Ipratropium/Albuterol Neb 3 ML IH SCH ×4 (03:52→22:35)
[2016-09-15] MEDS: *HR* HYDROmorphone (PF) 1 MG/ML SYRINGE IVP PRN ×4 (04:06→20:54)
[2016-09-15] MEDS ORDERED: Albuterol 2.5 MG/3 ML NEBULIZER IH PRN (06:20)
[2016-09-15 08:08] LABS: Basophils % 0.2 %; Eosinophils # 0.5 K/mcL (0.0-0.6); Eosinophils % 3.2 %; Hematocrit 29.7 % (37.5-50.1); Hemoglobin 8.8 g/dL (12.9-16.9); Lymphocytes # 1.1 K/mcL (0.6-4.6); Lymphocytes % 6.7 %; Mean Corpuscular HGB Conc 29.6 g/dL (31.6-35.5); Mean Corpuscular Hemoglobin 21.8 pg (28.0-33.3); Mean Corpuscular Volume 73.7 fL (83.0-100.0); Monocytes # 1.2 K/mcL (0.0-1.3); Monocytes % 7.4 %; Neutrophils # 13.5 K/mcL (1.6-8.9); Platelet Count 440 K/mcL (140-400); Red Blood Count 4.03 M/mcL (4.19-5.50); Red Cell Distribution Width 17.2 % (11.5-14.5); Segmented Neutrophils % 81.5 %
[2016-09-15 08:15] LABS: BUN/Creatinine Ratio 23 (6-26); Blood Urea Nitrogen 19 mg/dL (8-26); Calcium 8.6 mg/dL (8.6-10.8); Carbon Dioxide 24 mEq/L (19-29); Chloride 101 mEq/L (98-109); Glucose 126 mg/dL (70-99); Osmolality,Calculated 280 (280-300); Potassium 4.9 mEq/L (3.5-4.5); Sodium 133 mEq/L (136-145); eGFR For African Americans > 60 (> 60); eGFR For Non-African Americans > 60 (> 60)
[2016-09-15] MEDS: Levofloxacin 750 MG/150 ML 750 MG/150 ML BAG IVPB SCH (08:44)
[2016-09-15] MEDS: Nicotine 14 MG PATCH.TD24 TD SCH (08:45)
[2016-09-15] MEDS: Metoprolol XL (24 HR) Succ 25 MG TAB.ER.24H PO SCH (08:46)
[2016-09-15] MEDS: Pantoprazole 40 MG VIAL IVP SCH (08:46)
[2016-09-15] MEDS: Aspirin Enteric Coated 81 MG Tablet PO SCH (08:46)
[2016-09-15] MEDS: predniSONE 20 MG TABLET PO SCH (08:46)
[2016-09-15] MEDS: Ketorolac 30 MG/ML VIAL IVP PRN ×2 (10:59→18:07)
--- NOTE | 2016-09-15 13:25 | Internal Med Progress Note ---
Date of Encounter: 09/15/16 Time of Encounter: 13:23 - Assessment and plan (1) Primary lung malignancy of unknown cell type Current Visit: Yes Status: Acute Assessment and plan: Presented with a history of cough for the last 3 weeks, treated with steroids and antibiotics as outpatient which did not resolve his symptoms. CT scan of the abdomen/pelviswith contrast dated 09/13/16 shows irregular soft tissue mass in the left lower lobe partially visualized measures at least 4.9 2.5 cm, most suspicious for neoplasm such as oncogenic carcinoma until proven otherwise. Left lower lobe and lingular lung nodule suspicious for pulmonary metastatic disease. There is interlobular septal thickening in the lung bases which may represent pulmonary edema; however, lymphangitic carcinomatosis could have a similar appearance. Innumerable hepatic masses most consistent with hepatic metastatic disease. will need biopsy for diagnosis, most likely liver biopsy. Oncology has been consulted, will consult IR for IR guided liver biopsy , consult IT for liver biopsy. Qualifiers: Laterality: left Qualified Code(s): C34.92 - Malignant neoplasm of unspecified part of left bronchus or lung (2) Abdominal pain Current Visit: Yes Status: Acute Assessment and plan: better today possible from liver metastases CT showed nonspecific gallbladder wall thickening. No biliary ductal dilation and if there is a concern for acute cholecystitis then further characterization with upper right quadrant ultrasound is suggested. He underwent HIDA scan , shows normal GB with impaired contraction. Qualifiers: Abdominal location: left lower quadrant Qualified Code(s): R10.32 - Left lower quadrant pain (3) Liver metastases Current Visit: Yes Status: Acute Assessment and plan: will need IR guided biopsy. (4) COPD exacerbation Current Visit: Yes Status: Acute Assessment and plan: He was treated as COPD exacerbation on presentation with steroids and levofloxacin. Breathing seems to be better, sating 95% on 4 L of nasal cannula, will continue oral prednisone at 20 mg daily and levofloxacin for [address] chest also shows ground glass opacity , consolidation possibly postobstructive pneumonia. (5) CAD (coronary artery disease) Current Visit: Yes Status: Chronic Assessment and plan: Denies any chest pain, continue home medications except Plavix. Plavix is being held for anticipation of biopsy, he reports that he has not taken Plavix for the last 2 days. Qualifiers: Coronary Disease-Associated Artery/Lesion type: unspecified vessel or lesion type [place] vs. transplanted heart: [place] heart Associated angina: angina presence unspecified Qualified Code(s): I25.10 - Atherosclerotic heart disease of [place] coronary artery without angina pectoris (6) Hypertension Current Visit: Yes Status: Chronic Assessment and plan: Blood pressure stable, continue home medications. Qualifiers: Hypertension type: essential hypertension Qualified Code(s): I10 - Essential (primary) hypertension - Subjective Interval history: Patient seen at the bedside, reports that the abdominal pain is better today , eating well and had a bowel movement. Denies any nausea or vomiting, complaints of cough with productive sputum, denies any hemoptysis. No fever. - Constitutional Vitals: Temp Pulse Resp BP Pulse Ox 98.0 F 108 20 166/96 93 09/15/16 10:35 09/15/16 10:35 09/15/16 10:35 09/15/16 10:35 09/15/16 10:35 General appearance: Present: cooperative, A&O X 3, pleasant, answers questions appropriately Exam: - Head Head exam: Present: atraumatic, normocephalic - Eye Eye exam: Present: PERRL, conjuntiva pink, sclera anicteric Pupils: Present: PERRL - ENT ENT exam: Present: normal exam, normal external ear exam - Neck Neck exam general surgery: Present: supple, trachea midline. Absent: lymphadenopathy - Respiratory Respiratory exam: Present: b/l clear, no added sounds - Cardiovascular Cardiovascular exam: Present:s1 and s2, no m/r/g - GI/Abdominal GI/Abdominal exam: Present: normal bowel sounds, soft, no peritoneal signs. Absent: distended, tenderness - Extremities Exam Extremities exam: Present: normal inspection, warm. Absent: calf tenderness, cyanotic, pedal edema - Back Exam Back exam: Present: normal inspection - Neurological Exam Neurological exam: Present: CN II-XII intact, oriented X3, no focal deficits. Absent: pronater drift, facial droop, speech deficit - Psychiatric Psychiatric exam: Present: normal affect, normal mood - Skin Skin exam: Present: dry, intact Internal Medicine: Result - Labs CBC & Chem 7: 09/15/16 07:56 09/15/16 07:56 Labs: Short CBC 09/15/16 Range/Units 07:56 WBC 16.6 H (4.3-11.1) K/mcL Hgb 8.8 L (12.9-16.9) g/dL Hct 29.7 L (37.5-50.1) % Plt Count 440 H (140-400) K/mcL Neutrophils # 13.5 H (1.6-8.9) K/mcL BMP 09/15/16 07:56 Sodium 133 L Potassium 4.9 H Chloride 101 Carbon Dioxide 24 BUN 19 Creatinine 0.84 Glucose 126 H Calcium 8.6 - ABG Interpretation ABG results: PT/INR, D-dimer PT 13.4 Seconds (9.4-12.1) H 09/13/16 20:38 - Impressions Impressions Liver Scan Nuclear Medicine 09/14/16 09:00 IMPRESSION: The gallbladder is visualized and therefore the cystic duct is open however, gallbladder contractility is abnormal at 26%. D/ / 09/14/2016 15:03:30 Ginette Barnett MD / cyrus Interpreting Provider: Ginette Barnett MD Chest CT 09/15/16 07:40 IMPRESSION: Extensive mediastinal adenopathy and pulmonary parenchymal nodularity with diffuse liver metastases D/ / Jeevan Mason MD / Jeevan Mason MD Interpreting Provider: Jeevan Mason MD Consult Discharge Plan - Plan Referrals: NO,PCP [Primary Care Provider] -
[2016-09-15] MEDS: *HR* Heparin 5,000 UNIT/ML VIAL SQ SCH ×2 (14:06→20:53)
[2016-09-16] MEDS: Ketorolac 30 MG/ML VIAL IVP PRN ×2 (00:11→06:04)
[2016-09-16] MEDS: *HR* HYDROmorphone (PF) 1 MG/ML SYRINGE IVP PRN ×2 (03:42→20:48)
[2016-09-16] MEDS: Ipratropium/Albuterol Neb 3 ML IH SCH ×4 (03:48→20:34)
[2016-09-16] MEDS: *HR* Heparin 5,000 UNIT/ML VIAL SQ SCH ×2 (06:05→17:30)
[2016-09-16 06:20] LABS: Basophils % 0.2 %; Eosinophils # 0.4 K/mcL (0.0-0.6); Eosinophils % 2.3 %; Hematocrit 30.6 % (37.5-50.1); Hemoglobin 9.3 g/dL (12.9-16.9); Immature Granulocytes % 1.2 % (0-4); Lymphocytes # 1.1 K/mcL (0.6-4.6); Mean Corpuscular HGB Conc 30.4 g/dL (31.6-35.5); Mean Corpuscular Volume 75.7 fL (83.0-100.0); Mean Platelet Volume 9.9 fL (9.4-12.4); Monocytes # 1.3 K/mcL (0.0-1.3); Monocytes % 7.1 %; Neutrophils # 15.7 K/mcL (1.6-8.9); Platelet Count 456 K/mcL (140-400); Red Blood Count 4.04 M/mcL (4.19-5.50); Red Cell Distribution Width 17.3 % (11.5-14.5); Segmented Neutrophils % 83.2 %
[2016-09-16 06:31] LABS: % Iron Saturation 9 % (20-55); BUN/Creatinine Ratio 27 (6-26); Blood Urea Nitrogen 23 mg/dL (8-26); Carbon Dioxide 25 mEq/L (19-29); Chloride 102 mEq/L (98-109); Glucose 98 mg/dL (70-99); Iron 19 mcg/dL (65-175); Osmolality,Calculated 290 (280-300); Potassium 4.3 mEq/L (3.5-4.5); Sodium 138 mEq/L (136-145); Transferrin 152 mg/dL (174-364); eGFR For African Americans > 60 (> 60); eGFR For Non-African Americans > 60 (> 60)
[2016-09-16 07:07] LABS: Folate 3.3 ng/mL (7.0-31.4); Vitamin B12 > 2000 pg/mL (213-816)
[2016-09-16] MEDS: Nicotine 14 MG PATCH.TD24 TD SCH (08:23)
[2016-09-16] MEDS: Metoprolol XL (24 HR) Succ 25 MG TAB.ER.24H PO SCH (08:24)
[2016-09-16] MEDS: Levofloxacin 750 MG/150 ML 750 MG/150 ML BAG IVPB SCH (08:24)
[2016-09-16] MEDS: predniSONE 20 MG TABLET PO SCH (08:24)
[2016-09-16] MEDS: Aspirin Enteric Coated 81 MG Tablet PO SCH (08:24)
[2016-09-16] MEDS: *HR* OxyCODONE/APAP 7.5/325 TABLET PO PRN ×3 (10:51→23:45)
--- NOTE | 2016-09-16 14:53 | Internal Med Progress Note ---
Date of Encounter: 09/16/16 Time of Encounter: 14:50 - Assessment and plan (1) Primary lung malignancy of unknown cell type Current Visit: Yes Status: Acute Assessment and plan: Presented with a history of cough for the last 3 weeks, treated with steroids and antibiotics as outpatient which did not resolve his symptoms. CT scan of the abdomen/pelviswith contrast dated 09/13/16 shows irregular soft tissue mass in the left lower lobe partially visualized measures at least 4.9 2.5 cm, most suspicious for neoplasm such as oncogenic carcinoma until proven otherwise. Left lower lobe and lingular lung nodule suspicious for pulmonary metastatic disease. There is interlobular septal thickening in the lung bases which may represent pulmonary edema; however, lymphangitic carcinomatosis could have a similar appearance. Innumerable hepatic masses most consistent with hepatic metastatic disease. will need biopsy for diagnosis, most likely liver biopsy. Appreciate oncology recommendations, for IR to do liver biopsy tomorrow. Qualifiers: Laterality: left Qualified Code(s): C34.92 - Malignant neoplasm of unspecified part of left bronchus or lung (2) Abdominal pain Current Visit: Yes Status: Acute Assessment and plan: better now, possible from liver metastases CT showed nonspecific gallbladder wall thickening. No biliary ductal dilation and if there is a concern for acute cholecystitis then further characterization with upper right quadrant ultrasound is suggested. He underwent HIDA scan , shows normal GB with impaired contraction. Qualifiers: Abdominal location: left lower quadrant Qualified Code(s): R10.32 - Left lower quadrant pain (3) Liver metastases Current Visit: Yes Status: Acute Assessment and plan: will need IR guided biopsy. (4) COPD exacerbation Current Visit: Yes Status: Acute Assessment and plan: He was treated as COPD exacerbation on presentation with steroids and levofloxacin. Breathing seems to be better, sating 95% on 4 L of nasal cannula, will continue oral prednisone at 20 mg daily and levofloxacin for [address] chest also shows ground glass opacity , consolidation possibly postobstructive pneumonia. Noted leukocytosis, possibly from being on steroids that was started recently. (5) CAD (coronary artery disease) Current Visit: Yes Status: Chronic Assessment and plan: Denies any chest pain, continue home medications except Plavix. Plavix is being held for anticipation of biopsy. Qualifiers: Coronary Disease-Associated Artery/Lesion type: unspecified vessel or lesion type [place] vs. transplanted heart: [place] heart Associated angina: angina presence unspecified Qualified Code(s): I25.10 - Atherosclerotic heart disease of [place] coronary artery without angina pectoris (6) Hypertension Current Visit: Yes Status: Chronic Assessment and plan: Blood pressure stable, continue home medications. Qualifiers: Hypertension type: essential hypertension Qualified Code(s): I10 - Essential (primary) hypertension - Subjective Interval history: Patient seen at the bedside, reports that he woke up at night with sob but was better in the morning, eating well and had a bowel movement. c/o mid soreness in his abdomen. Denies any nausea or vomiting, complaints of cough with productive sputum, denies any hemoptysis. No fever. - Constitutional Vitals: Temp Pulse Resp BP Pulse Ox 97.7 F 93 18 146/93 93 09/16/16 14:10 09/16/16 14:10 09/16/16 14:10 09/16/16 14:10 09/16/16 14:10 General appearance: Present: cooperative, A&O X 3, pleasant, answers questions appropriately Exam: Head Head exam: Present: atraumatic, normocephalic - Eye Eye exam: Present: PERRL, conjuntiva pink, sclera anicteric Pupils: Present: PERRL - ENT ENT exam: Present: normal exam, normal external ear exam - Neck Neck exam general surgery: Present: supple, trachea midline. Absent: lymphadenopathy - Respiratory Respiratory exam: Present: b/l clear, no added sounds - Cardiovascular Cardiovascular exam: Present:s1 and s2, no m/r/g - GI/Abdominal GI/Abdominal exam: Present: normal bowel sounds, soft, no peritoneal signs. Absent: distended, tenderness - Extremities Exam Extremities exam: Present: normal inspection, warm. Absent: calf tenderness, cyanotic, pedal edema - Back Exam Back exam: Present: normal inspection - Neurological Exam Neurological exam: Present: CN II-XII intact, oriented X3, no focal deficits. Absent: pronater drift, facial droop, speech deficit - Psychiatric Psychiatric exam: Present: normal affect, normal mood - Skin Skin exam: Present: dry, intact Internal Medicine: Result - Labs CBC & Chem 7: 09/16/16 05:19 09/16/16 05:19 Labs: Short CBC 09/16/16 Range/Units 05:19 WBC 18.8 H (4.3-11.1) K/mcL Hgb 9.3 L (12.9-16.9) g/dL Hct 30.6 L (37.5-50.1) % Plt Count 456 H (140-400) K/mcL Neutrophils # 15.7 H (1.6-8.9) K/mcL BMP 09/16/16 05:19 Sodium 138 Potassium 4.3 Chloride 102 Carbon Dioxide 25 BUN 23 Creatinine 0.84 Glucose 98 Calcium 9.0 - ABG Interpretation ABG results: PT/INR, D-dimer PT 13.4 Seconds (9.4-12.1) H 09/13/16 20:38 Consult Discharge Plan - Plan Referrals: Dorys Abraham, [employer]ER [Advanced Practice Nurse] - 10/06/16 2:00 pm (You will receive a new patient packet in the mail. Please fill out and bring with you to your appointment. You will also need to bring a photo ID, insurance card and any medications you are on. If you need to cancel please give a 24 hour notice. Thank you.)
[2016-09-17] MEDS: *HR* HYDROmorphone (PF) 1 MG/ML SYRINGE IVP PRN (04:07)
[2016-09-17] MEDS: Ipratropium/Albuterol Neb 3 ML IH SCH ×3 (04:22→16:03)
[2016-09-17] MEDS: *HR* Heparin 5,000 UNIT/ML VIAL SQ SCH ×2 (06:30→17:49)
[2016-09-17] MEDS: *HR* OxyCODONE/APAP 7.5/325 TABLET PO PRN ×3 (06:32→19:38)
[2016-09-17 08:47] LABS: Basophils # 0.1 K/mcL (0.0-0.2); Basophils % 0.3 %; Eosinophils # 0.7 K/mcL (0.0-0.6); Eosinophils % 4.1 %; Hematocrit 30.8 % (37.5-50.1); Hemoglobin 9.3 g/dL (12.9-16.9); Lymphocytes # 1.2 K/mcL (0.6-4.6); Lymphocytes % 7.4 %; Mean Corpuscular HGB Conc 30.2 g/dL (31.6-35.5); Mean Corpuscular Hemoglobin 22.6 pg (28.0-33.3); Mean Corpuscular Volume 74.9 fL (83.0-100.0); Monocytes # 1.5 K/mcL (0.0-1.3); Monocytes % 9.2 %; Neutrophils # 12.9 K/mcL (1.6-8.9); Platelet Count 455 K/mcL (140-400); Red Blood Count 4.11 M/mcL (4.19-5.50); Red Cell Distribution Width 17.7 % (11.5-14.5)
[2016-09-17 09:00] LABS: BUN/Creatinine Ratio 24 (6-26); Blood Urea Nitrogen 17 mg/dL (8-26); Calcium 8.8 mg/dL (8.6-10.8); Carbon Dioxide 28 mEq/L (19-29); Chloride 103 mEq/L (98-109); Glucose 91 mg/dL (70-99); Osmolality,Calculated 285 (280-300); Potassium 4.4 mEq/L (3.5-4.5); Sodium 137 mEq/L (136-145); eGFR For African Americans > 60 (> 60); eGFR For Non-African Americans > 60 (> 60)
[2016-09-17] MEDS: Metoprolol XL (24 HR) Succ 25 MG TAB.ER.24H PO SCH (09:20)
[2016-09-17] MEDS: predniSONE 20 MG TABLET PO SCH (09:20)
[2016-09-17] MEDS: Nicotine 14 MG PATCH.TD24 TD SCH (09:20)
[2016-09-17] MEDS: Levofloxacin 750 MG/150 ML 750 MG/150 ML BAG IVPB SCH (09:21)
[2016-09-17] MEDS: Aspirin Enteric Coated 81 MG Tablet PO SCH (09:28)
[2016-09-17] MEDS ORDERED: *HR* Midazolam HCl 2 MG/2 ML VIAL IVP PRN (12:38)
[2016-09-17] MEDS ORDERED: *HR* FentaNYL (PF) 100 MCG/2 ML VIAL IVP PRN (12:38)
[2016-09-17] MEDS ORDERED: 0.9 % Sodium Chloride 500 ML ONE (12:52)
--- NOTE | 2016-09-17 13:06 | IR Procedure Note ---
Date of procedure: 09/17/16 Consent Obtained: Verbal consent, Written consent Timeout: Correct patient and procedure verified, Correct site verified, Time out performed, Skin prep completed Local anesthetic: Lidocaine 1% Indications: Liver lesions Procedure Performed: Liver lesion biopsy Site/Technique: CT guided liver lesion biopsy Results/Findings: 3 18 gauge biopsies Estimated blood loss (cc): 2 Complications: None; Tolerated procedure well Post Procedure Treatment Plan: Bedrest x2 hours
[2016-09-17 15:18] VITALS: BP 146/94
--- NOTE | 2016-09-17 16:31 | Discharge Summary ---
Date of Encounter: 09/17/16 Time of Encounter: 16:29 - Discharge Diagnosis (1) Primary lung malignancy of unknown cell type Priority: Primary Status: Acute Qualifiers: Laterality: left Qualified Code(s): C34.92 - Malignant neoplasm of unspecified part of left bronchus or lung (2) Abdominal pain Priority: Primary Status: Acute Qualifiers: Abdominal location: left lower quadrant Qualified Code(s): R10.32 - Left lower quadrant pain (3) Liver metastases Priority: Primary Status: Acute (4) COPD exacerbation Priority: Primary Status: Acute (5) CAD (coronary artery disease) Priority: Secondary Status: Chronic Qualifiers: Coronary Disease-Associated Artery/Lesion type: unspecified vessel or lesion type [place] vs. transplanted heart: [place] heart Associated angina: angina presence unspecified Qualified Code(s): I25.10 - Atherosclerotic heart disease of [place] coronary artery without angina pectoris (6) Hypertension Priority: Secondary Status: Chronic Qualifiers: Hypertension type: essential hypertension Qualified Code(s): I10 - Essential (primary) hypertension - Discharge Medications Prescriptions: OxyCODONE/APAP 7.5/325 [Percocet 7.5/325 MG] 1 each PO Q6HR PRN #60 tablet PRN Reason: Moderate Pain Albuterol Neb [Proventil Neb] 2.5 mg IH Q2H PRN 30 Days PRN Reason: Shortness Of Breath/Wheezing Ferrous Sulfate 325 mg PO BIDWM 30 Days Levofloxacin [Levaquin] 750 mg PO DAILY #2 tablet Nebulizer [Aeroeclipse] 1 each MC DAILY #1 each predniSONE [PredniSONE] 20 mg PO DAILY #2 tablet Home Medications: Albuterol Sulfate [Proair Hfa] 2 puff IH Q6H PRN 09/13/16 [History] Aspirin [Lo-Dose Aspirin EC] 243 mg PO DAILY 09/13/16 [History] Atorvastatin Calcium [Lipitor] 80 mg PO DAILY 09/13/16 [History] Clopidogrel [Plavix] 75 mg PO DAILY 09/13/16 [History] Lisinopril [Zestril] 10 mg PO DAILY 09/13/16 [History] Metoprolol XL (24 HR) Succ [Toprol Xl] 25 mg PO DAILY 09/13/16 [History] Albuterol Neb [Proventil Neb] 2.5 mg IH Q2H PRN 30 Days 09/17/16 [Rx] Ferrous Sulfate 325 mg PO BIDWM 30 Days 09/17/16 [Rx] Levofloxacin [Levaquin] 750 mg PO DAILY #2 tablet 09/17/16 [Rx] Nebulizer [Aeroeclipse] 1 each MC DAILY #1 each 09/17/16 [Rx] OxyCODONE/APAP 7.5/325 [Percocet 7.5/325 MG] 1 each PO Q6HR PRN #60 tablet 09/17 [Rx] predniSONE [PredniSONE] 20 mg PO DAILY #2 tablet 09/17/16 [Rx] Allergies/Adverse Reactions: Allergies No Known Allergies Allergy (Verified 06/06/15 14:44) Procedures/tests Complete & Pending: Procedures Performed prior 72 hours Category Date Time Status CT biopsy liver [CT] Routine Cat Scan 09/17/[address] chest wo con [CT] Stat Cat Scan 09/15/16 07:40 Completed Date of admission: 09/13/16 18:37 Primary care physician: PCP NO Consults: 09/15/16 13:27 Consult to Interventional Radiology [CONS] Routine Consulting Provider: Radiology Interventional Cols Reason for Consult: please evaluate for IR guided liver biopsy of liver mets , plavix held since 09/13. thank you Call Completed: Yes Discharging clinician: Breanne Alvarado Anticipated date of discharge: 09/17/16 - Patient Status Disposition: Home, Self-Care Condition: Fair Functional capacity at discharge: independent ambulation Overall status at discharge: patient is back to baseline - Discharge Instructions Follow Up With: Dorys Abraham, [employer]PERATOR [Advanced Practice Nurse] - 10/06/16 2:00 pm (You will receive a new patient packet in the mail. Please fill out and bring with you to your appointment. You will also need to bring a photo ID, insurance card and any medications you are on. If you need to cancel please give a 24 hour notice. Thank you.) - Diet and Activity Activity: resume usual activities as tolerated Diet: advance to your usual diet Interval History: Mr. Hernandez is a 56 year old male with past medical history significant for coronary artery disease, hypertension, COPD, anxiety issues with symptoms of abdominal discomfort and shortness of breath productive phlegm for 3 weeks or so , denies any hemoptysis chronic smoking history quit in April [address] imaging was obtained due to pain which shows an irregular soft tissue mass in the left lower lobe measuring 4.9 x 2.5 cm suspicious for primary lung carcinoma, multiple liver metastatic disease, gastrohepatic lymph node periaortic lymph node aortocaval lymph node lymphadenopathy and brenda hepatis lymphadenopathy were also noted. HE was also initially treated for COPD exacerbation with steroids and levofloxacin adn will complete 5 days of therapy. HE underwent liver biopsy with IR today, Plavix has been hold for 5 days for the procedure. Postprocedure he remained stable, no significant abdominal pain, nausea or vomiting. He is being discharged today in stable condition and will follow up with oncology within a week with the results of liver biopsy for initiating treatment. He was advised to restart his Plavix tomorrow, in case of worsening abdominal pain or concerns for bleeding, he was advised to come to ED, he understands and agrees with the plan. Hospital course: Mr. Hernandez is a 56 year old male - Time Spent with Patient Total time spent providing and/or coordinating discharge services: - Constitutional Vitals: Temp Pulse Resp BP Pulse Ox 97.6 F 65 16 146/94 92 09/17/16 15:17 09/17/16 15:17 09/17/16 16:04 09/17/16 15:17 09/17/16 16:04 General appearance: Present: cooperative, A&O X 3, pleasant, answers questions appropriately Exam: - Head Head exam: Present: atraumatic, normocephalic - Eye Eye exam: Present: PERRL, conjuntiva pink, sclera anicteric Pupils: Present: PERRL - ENT ENT exam: Present: normal exam, normal external ear exam - Neck Neck exam general surgery: Present: supple, trachea midline. Absent: lymphadenopathy - Respiratory Respiratory exam: Present: b/l clear, no added sounds - Cardiovascular Cardiovascular exam: Present:s1 and s2, no m/r/g - GI/Abdominal GI/Abdominal exam: Present: normal bowel sounds, soft, no peritoneal signs. Absent: distended, tenderness - Extremities Exam Extremities exam: Present: normal inspection, warm. Absent: calf tenderness, cyanotic, pedal edema - Back Exam Back exam: Present: normal inspection - Neurological Exam Neurological exam: Present: CN II-XII intact, oriented X3, no focal deficits. Absent: pronater drift, facial droop, speech deficit - Psychiatric Psychiatric exam: Present: normal affect, normal mood - Skin Skin exam: Present: dry, intact - VTE Documentation of Mechanical Device: Intermittent pneumatic compression device
== END 2016-09-17 20:12 | disposition home or self-care (01) | DRG 181 ==
LOC: EMEROO 12:48 → 3ANU 12:48
PROVIDERS: ADMIT Hospitalist; ATTEND Internal Medicine Endocrinology, Diabetes & Metabolism
PROC: IRLIVER (2016-09-17 13:15)

== ENCOUNTER 2016-09-20 02:18 | Inpatient (IN) ==
[2016-09-20] MEDS ORDERED: methylPREDNISolone 125 MG/2 ML VIAL IVP ONE (02:23)
[2016-09-20] MEDS ORDERED: *HR* LORazepam 2 MG/ML VIAL ONE (02:26)
[2016-09-20] MEDS ORDERED: *HR* LORazepam 2 MG/ML VIAL IVP ONE (02:27)
--- NOTE | 2016-09-20 02:29 | Emergency Department Note ---
Disposition Clinical Impression: Hypoxia Respiratory failure Qualifiers: Chronicity: acute on chronic Respiratory failure complication: hypoxia Qualified Code(s): J96.21 - Acute and chronic respiratory failure with hypoxia Anemia Qualifiers: Anemia type: other cause Other causes of anemia: other cause, not classified Qualified Code(s): D64.89 - Other specified anemias Disposition: Admitted As Inpatient Condition: Fair Referrals: Unassigned,Provider [Non-Partnered Physician] - Forms: ED Satisfaction Letter SOB HPI - General Chief Complaint: ED Shortness of Breath/Dyspnea Stated Complaint: TIFFANY Time Seen by Provider: 09/20/16 02:23 Source: patient Mode of arrival: EMS Limitations: no limitations Nursing Notes Reviewed: Yes Vital Signs Reviewed: Yes - History of Present Illness 56-year-old male history of COPD, CAD with stents on Plavix, liver and lung cancer recently diagnosed within the last 2 weeks who presents to the ER due to respiratory distress. EMS reports that upon arrival to his house he was 77% on room air. He does wear oxygen continuously and fell off him while asleep. He reports that he recently was hospitalized and diagnosed with liver and lung cancer. He has not been initiated on chemotherapy as of yet. He does also report a history of 1 PE in the past. History of cardiac disease with stents currently on Plavix. He denies any current chest pain. No recent illnesses. No cough. No other complaints. 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 Severity: severe Consistency/Duration: constant Improves with: nothing Worsens with: nothing Known history of: COPD, other (Lung cancer) Associated symptoms: Denies: chest pain, fever, cough, wheezing Treatment prior to arrival: oxygen, bronchodilator Cough present: No Sputum Amount: None - Related Data Home oxygen amount: 2 liters Home Medications Medication Instructions Recorded Confirmed Albuterol Sulfate [Proair Hfa] 2 puff IH Q6H PRN 09/13/16 09/13/16 Aspirin [Lo-Dose Aspirin EC] 243 mg PO DAILY 09/13/16 09/13/16 Atorvastatin Calcium [Lipitor] 80 mg PO DAILY 09/13/16 09/13/16 Clopidogrel [Plavix] 75 mg PO DAILY 09/13/16 09/13/16 Lisinopril [Zestril] 10 mg PO DAILY 09/13/16 09/13/16 Metoprolol XL (24 HR) Succ [Toprol 25 mg PO DAILY 09/13/16 09/13/16 Xl] Previous Rx's Medication Instructions Recorded Albuterol Neb [Proventil Neb] 2.5 mg IH Q2H PRN 30 Days 09/17/16 Ferrous Sulfate 325 mg PO BIDWM 30 Days 09/17/16 Levofloxacin [Levaquin] 750 mg PO DAILY #2 tablet 09/17/16 Nebulizer [Aeroeclipse] 1 each MC DAILY #1 each 09/17/16 OxyCODONE/APAP 7.5/325 [Percocet 1 each PO Q6HR PRN #60 tablet 09/17/16 7.5/325 MG] predniSONE [PredniSONE] 20 mg PO DAILY #2 tablet 09/17/16 Allergies Allergy/AdvReac Type Severity Reaction Status Date / Time No Known Allergies Allergy Verified 06/06/15 14:44 All systems ED: reviewed and negative except as stated. Constitutional: Denies: fever Cardiovascular: Denies: chest pain Respiratory: Reports: dyspnea. Denies: cough, wheezes Gastrointestinal: Denies: abdominal pain, nausea, vomiting Past Medical History - Past Medical History Attestation: Yes The following information was validated with the patient. 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) Psychiatric history: Reports: anxiety - Social History Smoking Status: Former smoker Smokeless Tobacco Status: No Alcohol use: Reports: occasionally Drug use: Reports: marijuana Physical Exam - General Limitations: no limitations General appearance: alert, in no apparent distress - Head Head exam: atraumatic, normocephalic, normal inspection - Eye Eye exam: Present: normal appearance, EOMI - ENT ENT exam: normal exam - Neck Neck exam: Present: normal inspection - Chest Chest inspection: Present: normal inspection, symmetric chest wall rise - Respiratory Respiratory exam: Present: respiratory distress, accessory muscle use, other ( Course breath sounds bilaterally) - Cardiovascular Cardiovascular exam: Present: normal rhythm, tachycardia, normal heart sounds - Abdominal Exam Abdominal exam: Present: soft, Non-Tender. Absent: tenderness - Extremities Exam Extremities exam: Present: normal inspection, full ROM - Expanded Upper Extremity Exam Shoulder exam: Present: normal inspection, full ROM Arm exam: Present: normal inspection, full ROM Elbow exam: Present: normal inspection, full ROM Forearm/Wrist exam: Present: normal inspection, full ROM Hand exam: Present: normal inspection, full ROM - Expanded Lower Extremity Exam Hip/Pelvis exam: Present: normal inspection, full ROM Upper leg exam: Present: normal inspection, full ROM Knee exam: Present: normal inspection, full ROM Lower leg exam: Present: normal inspection, full ROM Ankle exam: Present: normal inspection, full ROM Foot/toe exam: Present: normal inspection, full ROM - Neurological Exam Neurological exam: Present: alert - Psychiatric Psychiatric exam: Present: normal mood, anxious - Skin Skin exam: Present: warm, dry, intact, normal color Course Course Narrative: Patient seen and examined upon time of arrival. Vital signs reviewed. He is tachypneic and currently on CPAP. Saturating fine. We will get an EKG, chest x -ray, continue duo neb treatments and obtain labs including troponin and BNP. Disposition pending. - Reevaluation(s) Reevaluation #1: Discussed results of imaging and lab work with the patient. Vital Signs Temperature 98.5 F 09/20/16 02:21 Pulse Rate 138 09/20/16 02:21 Respiratory Rate 50 09/20/16 02:21 Blood Pressure 183/117 09/20/16 02:21 O2 Sat by Pulse Oximetry 99 09/20/16 02:21 Temperature 98.5 F 09/20/16 02:26 Pulse Rate 120 09/20/16 03:17 Respiratory Rate 35 09/20/16 03:17 Blood Pressure 111/74 09/20/16 03:17 O2 Sat by Pulse Oximetry 97 09/20/16 03:17 Oxygen Delivery Oxygen Delivery Bipap Shortness of Breath/Dyspnea - MDM Narrative Medical decision making narrative: 56-year-old male presents to the ER in respiratory distress. History of lung cancer that was recently diagnosed. He does wear oxygen at home but it was off his face whenever he woke up. He was initially 77% on room air when EMS arrived. He received several albuterol treatments in route. He remains tachypneic here and is currently on BiPAP with a good saturation. Chest x-ray shows concerning worsening of his lung cancer. Troponin is negative and EKG is nonischemic. Patient admitted to the hospitalist service for further management. - Lab Data Lab results reviewed: Yes I reviewed the patient's lab results. Result diagrams: 09/20/16 02:30 09/20/16 02:30 Lab Results 09/20/16 09/20/16 09/20/16 Range/Units 02:30 02:30 02:30 WBC 22.1 H (4.3-11.1) K/mcL RBC 4.62 (4.19-5.50) M/mcL Hgb 10.4 L (12.9-16.9) g/dL Hct 34.8 L (37.5-50.1) % MCV 75.3 L (83.0-100.0) fL MCH 22.5 L (28.0-33.3) pg MCHC 29.9 L (31.6-35.5) g/dL RDW 17.6 H (11.5-14.5) % Plt Count 552 H (140-400) K/mcL MPV 8.9 L (9.4-12.4) fL Immature Gran % 1.1 (0-4) % Seg Neutrophils % 79.1 % Lymphocytes % 7.6 % Monocytes % 8.8 % Eosinophils % 3.1 % Basophils % 0.3 % Neutrophils # 17.5 H (1.6-8.9) K/mcL Lymphocytes # 1.7 (0.6-4.6) K/mcL Monocytes # 1.9 H (0.0-1.3) K/mcL Eosinophils # 0.7 H (0.0-0.6) K/mcL Basophils # 0.1 (0.0-0.2) K/mcL Sodium 135 L (136-145) mEq/L Potassium 4.8 H (3.5-4.5) mEq/L Chloride 96 L (98-109) mEq/L Carbon Dioxide 28 (19-29) mEq/L BUN 19 (8-26) mg/dL Creatinine 0.78 (0.72-1.25) mg/dL Est GFR ( Amer) > 60 (> 60) Est GFR (Non-Af Amer) > 60 (> 60) BUN/Creatinine Ratio 24 (6-26) Glucose 120 H (70-99) mg/dL Calculated Osmolality 283 (280-300) Calcium 9.3 (8.6-10.8) mg/dL Troponin I 0.00 (0-0.03) ng/mL B-Natriuretic Peptide (0-100) pg/mL 09/20/16 Range/Units 02:30 WBC (4.3-11.1) K/mcL RBC (4.19-5.50) M/mcL Hgb (12.9-16.9) g/dL Hct (37.5-50.1) % MCV (83.0-100.0) fL MCH (28.0-33.3) pg MCHC (31.6-35.5) g/dL RDW (11.5-14.5) % Plt Count (140-400) K/mcL MPV (9.4-12.4) fL Immature Gran % (0-4) % Seg Neutrophils % % Lymphocytes % % Monocytes % % Eosinophils % % Basophils % % Neutrophils # (1.6-8.9) K/mcL Lymphocytes # (0.6-4.6) K/mcL Monocytes # (0.0-1.3) K/mcL Eosinophils # (0.0-0.6) K/mcL Basophils # (0.0-0.2) K/mcL Sodium (136-145) mEq/L Potassium (3.5-4.5) mEq/L Chloride (98-109) mEq/L Carbon Dioxide (19-29) mEq/L BUN (8-26) mg/dL Creatinine (0.72-1.25) mg/dL Est GFR ( Amer) (> 60) Est GFR (Non-Af Amer) (> 60) BUN/Creatinine Ratio (6-26) Glucose (70-99) mg/dL Calculated Osmolality (280-300) Calcium (8.6-10.8) mg/dL Troponin I (0-0.03) ng/mL B-Natriuretic Peptide 24 (0-100) pg/mL - Radiology Data Radiology results reviewed: Yes I reviewed the patient's radiology results. Chest X-Ray 09/20/16 02:23 IMPRESSION: Increasing interstitial lung disease may represent edema or lymphangitic spread of tumor. Recently noted lung nodules including a mass in the left infrahilar region are partially obscured by the increasing interstitial disease. D/ / Brantd Oh MD / Brandt Oh MD Interpreting Provider: Brandt Oh MD - EKG Data EKG attestation: Yes I reviewed and interpreted this EKG. EKG results narrative: EKG demonstrates sinus tachycardia with a rate of 136. Normal axis. MN interval 154 QRS duration [address] elevations or depressions. No acute ischemic findings. No significant changes from previous EKG dated 09/13/16. Critical Care Time Critical Care Time: Yes Total Critical Care Time: 35 Attestation: Critical care performed: Time is exclusive of separately billable procedures. Time includes: direct patient care, patient reassessment, coordination of patient care, interpretation of data (laboratory data, radiology data, and respiratory data), review of patient's medical records, medical consultation and documentation of patient care. Procedures included in critical care time: Procedures excluded from critical care time: S.Luther.Ryan - Madhu Situation: Demographics, MOA Background: Presenting Complaint, Relevant PMH, Meds, & Allergies Assessment: Vital Signs, Course and respsone to treatment, Exam Concerns, Patient/Family Expectation, Pertinant Lab Results, Outstanding Labs Recommendation: Barrier(s) to disposition, Recommendation based on pending studies, treatments, or consults SJeffrey Report Given to: Dr. Chiki Leung [facility] Time: 03:12 Attestation Statement - Attestation Attestation: I, Khris Winn MD, personally evaluated this patient and discussed their management with the resident physician. I reviewed the resident's note and agree with the documented findings, medical decision making, and plan of care. 56-year-old male presents to the emergency department by ambulance with complaint that he awoke from sleep with shortness of breath and difficulty breathing. Initial oxygen saturation was in the 70s. Patient has a history of COPD and is on home oxygen. He also was just recently diagnosed with metastatic lung cancer. On examination patient is a well-developed well-nourished male in moderate respiratory distress. He is alert and oriented. There is no cyanosis or diaphoresis. Breath sounds are decreased bilaterally with some coarse bilateral rales and expiratory wheezes. Heart regular with a mild tachycardia. Abdomen nontender with normal bowel sounds. Labs reviewed. Chest x-ray shows increased interstitial lung disease which could represent edema or lymphatic spread of tumor. Patient placed on BiPAP. The hospitalist, Dr. Monet, was consulted and accepted admission of the patient.
[2016-09-20] MEDS: Ipratropium/Albuterol Neb 3 ML IH ONE ×2 (02:35→03:20)
[2016-09-20 02:38] LABS: Basophils # 0.1 K/mcL (0.0-0.2); Basophils % 0.3 %; Eosinophils # 0.7 K/mcL (0.0-0.6); Eosinophils % 3.1 %; Hematocrit 34.8 % (37.5-50.1); Hemoglobin 10.4 g/dL (12.9-16.9); Immature Granulocytes % 1.1 % (0-4); Lymphocytes # 1.7 K/mcL (0.6-4.6); Lymphocytes % 7.6 %; Mean Corpuscular HGB Conc 29.9 g/dL (31.6-35.5); Mean Corpuscular Hemoglobin 22.5 pg (28.0-33.3); Mean Corpuscular Volume 75.3 fL (83.0-100.0); Mean Platelet Volume 8.9 fL (9.4-12.4); Monocytes # 1.9 K/mcL (0.0-1.3); Monocytes % 8.8 %; Neutrophils # 17.5 K/mcL (1.6-8.9); Platelet Count 552 K/mcL (140-400); Red Blood Count 4.62 M/mcL (4.19-5.50); Red Cell Distribution Width 17.6 % (11.5-14.5); Segmented Neutrophils % 79.1 %
[2016-09-20] MEDS ORDERED: Albuterol 2.5 MG/3 ML NEBULIZER IH ONE (02:47)
[2016-09-20 02:51] LABS: BUN/Creatinine Ratio 24 (6-26); Blood Urea Nitrogen 19 mg/dL (8-26); Calcium 9.3 mg/dL (8.6-10.8); Carbon Dioxide 28 mEq/L (19-29); Chloride 96 mEq/L (98-109); Glucose 120 mg/dL (70-99); Osmolality,Calculated 283 (280-300); Potassium 4.8 mEq/L (3.5-4.5); Sodium 135 mEq/L (136-145); eGFR For African Americans > 60 (> 60); eGFR For Non-African Americans > 60 (> 60)
[2016-09-20] MEDS ORDERED: Acetaminophen 325 MG TABLET PO PRN (03:52)
[2016-09-20] MEDS ORDERED: Ondansetron 4 MG/2 ML VIAL IVP PRN (03:52)
[2016-09-20] MEDS ORDERED: Naloxone 0.4 MG/ML INJ IVP PRN (03:52)
--- NOTE | 2016-09-20 04:01 | Internal Med History&Physical ---
Date of Encounter: 09/20/16 Time of Encounter: 03:59 Assessment and Plan (1) Acute pulmonary edema Current visit: Yes Status: Acute Acute on chronic respiratory failure secondary to acute pulmonary edema versus lymphangitic spread of tumor (recently diagnosed with metastatic lung cancer), also possibly related to acute COPD exacerbation due to sepsis from acute bacterial bronchitis Lasix IV, strict I's and O's, daily weight, echocardiogram *Solu-Medrol, start cefepime and azithromycin Sabi nebs, oxygen therapy, BiPAP as needed Pulmonary and oncology consult Follow report of lung biopsy Omeprazole for GI prophylaxis and Lovenox for DVT prophylaxis. The patient will be admitted as inpatient, expected to stay more than 2 midnights. Full code. Time spent this admission 40 minutes. High risk due to respiratory failure (2) Sepsis Current visit: Yes Status: Acute Qualifiers: Sepsis type: sepsis due to unspecified organism Qualified Code(s): A41.9 - Sepsis, unspecified organism (3) Hypoxia Current visit: Yes Status: Acute (4) Respiratory failure Current visit: Yes Status: Acute Qualifiers: Chronicity: acute on chronic Respiratory failure complication: hypoxia Qualified Code(s): J96.21 - Acute and chronic respiratory failure with hypoxia (5) Liver metastases Current visit: No Status: Acute (6) Primary lung malignancy of unknown cell type Current visit: No Status: Acute Qualifiers: Laterality: left Qualified Code(s): C34.92 - Malignant neoplasm of unspecified part of left bronchus or lung (7) CAD (coronary artery disease) Current visit: No Status: Chronic Continue aspirin and Plavix Qualifiers: Coronary Disease-Associated Artery/Lesion type: unspecified vessel or lesion type [place] vs. transplanted heart: [place] heart Associated angina: angina presence unspecified Qualified Code(s): I25.10 - Atherosclerotic heart disease of [place] coronary artery without angina pectoris (8) Hypertension Current visit: No Status: Chronic May use hydralazine as needed Qualifiers: Hypertension type: essential hypertension Qualified Code(s): I10 - Essential (primary) hypertension Internal Medicine - H&P: HPI Chief complaint: Shortness of breath Admitted From: Emergency Dept History of present illness: Mr. Hernandez is a 56 year old male with a past medical history of COPD oxygen dependent using 2 L, CAD status post stents recently discharged from the hospital on September 17 where he was newly diagnosed with lung cancer and liver metastases. The patient went home and completed his doses of Levaquin yesterday. He said he was drinking lots of fluids and all of a sudden close to 2 AM he woke up from his sleep extremely short of breath. In the emergency room he saturation of oxygen was 77% White blood cell count was 22.1 heart rate 138 platelets 552. Patient says that he has been bringing up greenish phlegm. The chest x-ray shows increasing interstitial lung disease compatible with acute pulmonary edema versus possible lymphangitic spread of tumor. He had a biopsy during his past hospitalization which is still pending. BiPAP was started at the moment emergency room. Denies any other complaint at the moment other than severe shortness of breath. 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, lung biopsy) - Social History Smoking Status: Former smoker (Used to smoke a pack a day) Smokeless Tobacco Status: No Alcohol use: occasionally Drug use: marijuana - Family History Mother Family Member Ethnicity: Non- Living Status: Still Living Hx Family Respiratory Disorders: Yes Father Family Member Ethnicity: Non- Living Status: Hx Family Cardiac Disorders: Yes (Brain aneurysm) Sister Family Member Ethnicity: Non- Living Status: Still Living Hx Family Cancer: Yes (Breast) - Additional Family History Additional family history: Father with brain aneurysm and sister with breast cancer Internal Medicine - H&P: Meds Albuterol Sulfate [Proair Hfa] 2 puff IH Q6H PRN 09/13/16 [History] Aspirin [Lo-Dose Aspirin EC] 243 mg PO DAILY 09/13/16 [History] Atorvastatin Calcium [Lipitor] 80 mg PO DAILY 09/13/16 [History] Clopidogrel [Plavix] 75 mg PO DAILY 09/13/16 [History] Lisinopril [Zestril] 10 mg PO DAILY 09/13/16 [History] Metoprolol XL (24 HR) Succ [Toprol Xl] 25 mg PO DAILY 09/13/16 [History] Albuterol Neb [Proventil Neb] 2.5 mg IH Q2H PRN 30 Days 09/17/16 [Rx] Ferrous Sulfate 325 mg PO BIDWM 30 Days 09/17/16 [Rx] Levofloxacin [Levaquin] 750 mg PO DAILY #2 tablet 09/17/16 [Rx] Nebulizer [Aeroeclipse] 1 each MC DAILY #1 each 09/17/16 [Rx] OxyCODONE/APAP 7.5/325 [Percocet 7.5/325 MG] 1 each PO Q6HR PRN #60 tablet 09/17 [Rx] predniSONE [PredniSONE] 20 mg PO DAILY #2 tablet 09/17/16 [Rx] Allergies No Known Allergies Allergy (Verified 06/06/15 14:44) All Systems PM: A 10-system review of systems was performed and is negative for pertinent findings except as documented above in the HPI. Review of systems: He is a senior respiratory distress and somnolent, very weak. Other systems out of the 10 reviewed were negative - Constitutional Vitals: Temp Pulse Resp BP Pulse Ox 98.5 F 120 40 111/77 97 09/20/16 02:26 09/20/16 03:17 09/20/16 03:54 09/20/16 03:54 09/20/16 03:17 General appearance: Present: A&O X 3 - Head Head exam: Present: atraumatic, normocephalic - Eye Eye exam: Present: PERRL, conjuntiva pink, sclera anicteric Pupils: Present: PERRL - Neck Neck exam general surgery: Present: supple, trachea midline. Absent: lymphadenopathy - Respiratory Respiratory exam: Present: CTAB, rales (Diffuse crackles with minimal wheezing) . Absent: accessory muscle use, rhonchi, wheezes - Cardiovascular Cardiovascular exam: Present: RRR, +S1, +S2. Absent: diastolic murmur, gallop, rubs, systolic murmur - GI/Abdominal GI/Abdominal exam: Present: distended, normal bowel sounds, soft, no peritoneal signs. Absent: tenderness - Extremities Exam Extremities exam: Present: pedal edema (+1 pitting edema in left lower extremity , right below the knee amputation), warm, radial pulses palpable and symetrical. Absent: calf tenderness, cyanotic - Neurological Exam Neurological exam: Present: CN II-XII intact, oriented X3, no focal deficits. Absent: pronater drift, facial droop, speech deficit - Skin Skin exam: Present: dry, intact Internal Med - H&P Results - Labs CBC & Chem 7: 09/20/16 02:30 09/20/16 02:30
[2016-09-20] MEDS: Ipratropium/Albuterol Neb 3 ML IH SCH ×4 (04:28→23:39)
[2016-09-20] MEDS: Furosemide 40 MG/4 ML VIAL IVP SCH ×2 (05:21→08:40)
[2016-09-20] MEDS: Azithromycin 500 MG in D5% in Water 250 ML IVPB SCH (05:29)
[2016-09-20] MEDS: *HR* Enoxaparin 40 MG/0.4 ML SYRINGE SQ SCH (05:36)
[2016-09-20] MEDS: methylPREDNISolone 125 MG/2 ML VIAL IVP SCH ×3 (05:39→17:27)
[2016-09-20] MEDS: *HR* Morphine 2 MG/ML SYRINGE IVP PRN ×3 (05:47→20:16)
--- NOTE | 2016-09-20 06:44 | Pulmonology Consult Note ---
Date of Encounter: 09/20/16 Time of Encounter: 06:43 Assessment and Plan (1) Acute and chronic respiratory failure Current Visit: Yes Status: Acute 56-year-old gentleman with past medical history of chronic respiratory failure, strict of sleep apnea coronary disease COPD likely primary lung malignancy with metastases at least to the liver who presented with acute on chronic respiratory failure. Differential diagnosis includes pulmonary embolism versus , pneumonia vs COPD exacerbation versus pulmonary edema versus and less likely acute worsening of lung malignancy i.e. lymphangitic spread. Appears the patient has received anxiolytic medication and is extremely somnolent right now unclear what his acid base status is at present despite the use of positive airway pressure I would obtain arterial blood gas analysis as soon as possible (I will put this order in). At present recommend continuation of positive airway pressure with oxygen bleed to keep oxygen saturation greater than 89-92% Standpoint of possible PE he has been tachycardic he has had a prior history of the LIONEL and he appears to have underlying malignancy which puts him at intermediate [place] probability. Given the high probability of positive d-dimer I recommend sending patient for emergent CT angiography to exclude this possibility. I agree with treatment for likely sepsis suspected underlying pulmonary source with recent exposure to healthcare environments would treat bod broadly at this time for healthcare associated organisms pending lipscomb cultures including sputum blood and urine. Would also check lactate. This and I would avoid aggressive diuresis of patient pending complete evaluation. Per note I have seen that the primary medicine services is considering echocardiography which is reasonable test at this time I agree with the empiric administration of steroids for possible COPD exacerbation although to my examination it was unimpressive for severe wheezing. I also agree with empirically scheduling bronchodilators From standpoint of malignancy we are waiting on liver biopsy results. If this is nondiagnostic could likely proceed with lung biopsy including endobronchial ultrasound with fine-needle aspiration early next week depending on clinical course. Standpoint obstructive sleep apnea he is currently on positive airway pressure. I would avoid the use of BRASS BUFFER depressant medications unless absolutely necessary this and these should be given while patient is on positive airway pressure support and at lowest dose possible to achieve desired effect We will continue to follow closely Qualifiers: Respiratory failure complication: hypoxia Qualified Code(s): J96.21 - Acute and chronic respiratory failure with hypoxia (2) History of pulmonary embolism Current Visit: Yes Status: Acute (3) COPD exacerbation Current Visit: No Status: Acute (4) DVT prophylaxis Current Visit: No Status: Acute (5) Primary lung malignancy of unknown cell type Current Visit: No Status: Acute Qualifiers: Laterality: left Qualified Code(s): C34.92 - Malignant neoplasm of unspecified part of left bronchus or lung (6) Sepsis Current Visit: Yes Status: Acute Qualifiers: Sepsis type: sepsis due to unspecified organism Qualified Code(s): A41.9 - Sepsis, unspecified organism History of Present Illness Consult date: 09/20/16 Chief complaint: Shortness of breath History of present illness: This is a 56-year-old gentleman with a past medical history of chronic respiratory failure secondary to COPD requiring 2 L oxygen at all times. He has history of prior pulmonary embolus coronary artery disease status post PCI on Plavix and aspirin. History obtained from medical record and his fiancee at bedside and intermittently from patient as he is exceedingly somnolent. He was long-time smoker and was admitted recently for evaluation of abnormal chest CT which was notable for evidence of what likely is primary lung malignancy with liver metastasis. He recently underwent liver biopsy and was in the hospital up to about 2 or 3 days ago and was discharged home. Last night per medical record woke up and became acutely short of breath on presentation ED saturation was in the 70s requiring positive airway pressure support to keep oxygen saturations at appropriate levels had a leukocytosis to greater than 20 per record patient was also comprising cough. Troponin was normal BNP was normal chest x-ray was notable for increased interstitial markings he has been treated for possible COPD exacerbation versus pulmonary edema but remains on positive airway pressure support at present Past Med Surg Social Fam HX - Past Medical History Medical history: cancer, COPD, coronary artery disease, hyperlipidemia, hypertension, myocardial infarction, other Psychiatric history: anxiety - Past Surgical History Surgical History: other - Social History Smoking Status: Former smoker Smokeless Tobacco Status: No Alcohol use: occasionally Drug use: marijuana - Family History Mother Family Member Ethnicity: Non- Living Status: Still Living Hx Family Respiratory Disorders: Yes Father Family Member Ethnicity: Non- Living Status: Age at : 67 Cause of : Brain tumor Hx Family Cardiac Disorders: Yes (Brain aneurysm) Sister Family Member Ethnicity: Non- Living Status: Still Living Hx Family Cancer: Yes (Breast) Medications and Allergies Albuterol Sulfate [Proair Hfa] 2 puff IH Q6H PRN 09/13/16 [History] Aspirin [Lo-Dose Aspirin EC] 243 mg PO DAILY 09/13/16 [History] Atorvastatin Calcium [Lipitor] 80 mg PO DAILY 09/13/16 [History] Clopidogrel [Plavix] 75 mg PO DAILY 09/13/16 [History] Lisinopril [Zestril] 10 mg PO DAILY 09/13/16 [History] Metoprolol XL (24 HR) Succ [Toprol Xl] 25 mg PO DAILY 09/13/16 [History] Albuterol Neb [Proventil Neb] 2.5 mg IH Q2H PRN 30 Days 09/17/16 [Rx] Ferrous Sulfate 325 mg PO BIDWM 30 Days 09/17/16 [Rx] Levofloxacin [Levaquin] 750 mg PO DAILY #2 tablet 09/17/16 [Rx] Nebulizer [Aeroeclipse] 1 each MC DAILY #1 each 09/17/16 [Rx] OxyCODONE/APAP 7.5/325 [Percocet 7.5/325 MG] 1 each PO Q6HR PRN #60 tablet 09/17 [Rx] predniSONE [PredniSONE] 20 mg PO DAILY #2 tablet 09/17/16 [Rx] Allergies No Known Allergies Allergy (Verified 06/06/15 14:44) All Systems: A 10-system review of systems was performed and is negative for pertinent findings except as documented above in the HPI. Physical Examination Vital Signs: Vital Signs, Last 4 Hours Temp Pulse Resp BP Pulse Ox 09/20/16 04:39 98 09/20/16 04:30 41 111/77 99 09/20/16 04:23 97.8 F 113 30 117/82 98 09/20/16 03:54 40 111/77 09/20/16 03:50 40 99 General appearance: lethargic (Able to arouse to shouting and sternal rub otherwise quite lethargic) Eyes: nonicteric Neck: supple Effort: normal Auscultation: bilateral: diminished breath sounds, rales (No wheezing appreciated) Cardiovascular: other (Rapid rate but irregular) Gastrointestinal: normoactive bowel sounds, tender Integumentary: normal Extremities: edema (Trace lower extremity lower edema no evidence of erythema), other (Status post right below the knee amputation) pupils equal and round, other (He does move all extremities to command) Results - Laboratory Findings CBC and BMP: 09/20/16 02:30 09/20/16 02:30 Abnormal lab findings: Abnormal lab results WBC 22.1 K/mcL (4.3-11.1) H 09/20/16 02:30 Hgb 10.4 g/dL (12.9-16.9) L 09/20/16 02:30 Hct 34.8 % (37.5-50.1) L 09/20/16 02:30 MCV 75.3 fL (83.0-100.0) L 09/20/16 02:30 MCH 22.5 pg (28.0-33.3) L 09/20/16 02:30 MCHC 29.9 g/dL (31.6-35.5) L 09/20/16 02:30 RDW 17.6 % (11.5-14.5) H 09/20/16 02:30 Plt Count 552 K/mcL (140-400) H 09/20/16 02:30 MPV 8.9 fL (9.4-12.4) L 09/20/16 02:30 Neutrophils # 17.5 K/mcL (1.6-8.9) H 09/20/16 02:30 Monocytes # 1.9 K/mcL (0.0-1.3) H 09/20/16 02:30 Eosinophils # 0.7 K/mcL (0.0-0.6) H 09/20/16 02:30 Sodium 135 mEq/L (136-145) L 09/20/16 02:30 Potassium 4.8 mEq/L (3.5-4.5) H 09/20/16 02:30 Chloride 96 mEq/L (98-109) L 09/20/16 02:30 Glucose 120 mg/dL (70-99) H 09/20/16 02:30 - Diagnostic Findings Chest x-ray: report reviewed, image reviewed - Clinical Findings Intake & Output: Intake & Output 09/19/16 09/19/16 09/20/16 15:59 23:59 07:59 Weight 81.7 kg Consult Discharge Plan - Plan Referrals: Dorys Abraham, CITY PLANNING TEACHER [Primary Care Provider] -
[2016-09-20] MEDS: Cefepime HCl 1,000 MG in D5% in Water (Mini-Bag+) 100 ML IVPB SCH ×2 (07:00→17:27)
[2016-09-20] MEDS: *HR* OxyCODONE Immed Rel 5 MG TABLET PO PRN ×2 (08:44→17:26)
[2016-09-20] MEDS: Aspirin Enteric Coated 81 MG Tablet PO SCH (08:44)
[2016-09-20] MEDS: Metoprolol XL (24 HR) Succ 25 MG TAB.ER.24H PO SCH (08:45)
[2016-09-20] MEDS ORDERED: Vancomycin (wt based) 1,000 MG VIAL IV SCH (11:00)
[2016-09-20] MEDS ORDERED: Vancomycin 2,000 MG in D5% in Water 500 ML IVPB ONE (11:25)
--- NOTE | 2016-09-20 13:46 | Internal Med Progress Note ---
<Manny Juares - Last Filed: 09/20/16 13:42> Date of Encounter: 09/20/16 Time of Encounter: 09:40 - Assessment and plan (1) Acute and chronic respiratory failure Current Visit: Yes Status: Acute Assessment and plan: Patient acute on chronic respiratory failure likely multifactorial. Recent diagnosis of apparent lung malignancy with history of COPD and obstructive sleep apnea. He had recently been in the hospital and with newly found airspace disease this could represent a hospital-acquired pneumonia causing COPD exacerbation. He could also be pulmonary edema or worsening of his lung malignancy. CTA of his chest was performed that showed there is no pulmonary embolism present. And patient seems to be doing better this morning no longer requiring the use of bilevel positive pressure assistance. Patient currently on azithromycin, cefepime, and vancomycin day 1 Patient also receiving 60 mg IV Solu-Medrol every 6 hours Patient receiving scheduled breathing treatments with albuterol/ipratropium 4 times a day Pulmonology is following and appreciate recommendations for continued management /care Oncology consulted for concern of likely malignancy We will hold Lasix for now given her normal BNP and patient improvement Qualifiers: Respiratory failure complication: hypoxia Qualified Code(s): J96.21 - Acute and chronic respiratory failure with hypoxia (2) COPD exacerbation Current Visit: No Status: Acute Assessment and plan: Plan as above (3) Primary lung malignancy of unknown cell type Current Visit: No Status: Acute Assessment and plan: Patient recently diagnosed metastatic lung cancer with lung metastases present. Pathology pending from 09/17/16. Chest CTA performed on 09/20/16 showed no evidence of PE, but new airspace disease in the lower lobes that could be atelectasis or edema, it also showed redemonstration of stable appearing upper airspace disease, hilar adenopathy, pulmonary nodules. Plan as above Qualifiers: Laterality: left Qualified Code(s): C34.92 - Malignant neoplasm of unspecified part of left bronchus or lung (4) Liver metastases Current Visit: No Status: Acute (5) DVT prophylaxis Current Visit: No Status: Acute Assessment and plan: Enoxaparin 40 mg subcutaneous daily - Subjective Interval history: Patient reports feeling well this morning, stating he has had improvement in his respiratory status. He states that his problems began 2 nights ago when he felt as if his CPAP was pushing his secretions into his airway. He taken the CPAP off at that time and last night he states he did not use oxygen. He woke up short of breath and felt like he is unable to adequately breathe even after he started using oxygen again. Since arriving in the hospital he states he has been feeling better and able to breathe easier. He currently has no shortness of breath, no cough, no fever/chills, no chest pain. He does report having some abdominal pain. - Constitutional Vitals: Temp Pulse Resp BP Pulse Ox 98.3 F 98 20 126/72 90 09/20/16 11:38 09/20/16 11:45 09/20/16 11:38 09/20/16 11:38 09/20/16 11:38 General appearance: Present: A&O X 3 Exam: General: Cooperative, pleasant, no acute distress, alert and oriented 3, answers questions appropriately HEENT: Normocephalic, atraumatic, neck supple, trachea midline, Conjunctiva pink , sclera anicteric, EOMI, PERRL, oral mucosa moist, no orophargeal erythema or exudates Respiratory: No accessory muscle usage, mild bibasilar rales on auscultation, diminished breath noises Cardiovascular: Regular rate and rhythm, S1 and S2 present, no murmurs/rubs/ gallops/clicks appreciated GI/abdominal: Nondistended, tenderness to palpation in right upper and right lower quadrant, soft, normal bowel sounds, no peritoneal signs, protuberant Extremities: No calf tenderness, noncyanotic, right BKA, warm, left lower extremity pulse palpable and symmetrical Neurological: Alert and oriented 3, no facial droop, no focal deficits Skin: Dry, intact, normal color Internal Medicine: Result - Labs CBC & Chem 7: 09/20/16 02:30 09/20/16 02:30 - Impressions Impressions Chest CTA 09/20/16 06:57 IMPRESSION: No evidence of pulmonary embolism New airspace disease in the lower lobes may represent atelectasis or edema. Stable pulmonary nodules and upper lobe airspace disease, mediastinal adenopathy, and hepatic metastases D/ / Heath Sepulveda MD / Heath Sepulveda MD Interpreting Provider: Heath Sepulveda MD Consult Discharge Plan - Plan Referrals: Dorys Abraham, PRESSURE TESTING TECHNICIAN [Primary Care Provider] - <FournierEben Sampson - Last Filed: 09/20/16 14:04> Date of Encounter: 09/20/16 - Constitutional Vitals: Temp Pulse Resp BP Pulse Ox 98.3 F 98 20 126/72 90 09/20/16 11:38 09/20/16 11:45 09/20/16 11:38 09/20/16 11:38 09/20/16 11:38 Internal Medicine: Result - Labs CBC & Chem 7: 09/20/16 02:30 09/20/16 02:30 - Impressions Impressions Chest CTA 09/20/16 06:57 IMPRESSION: No evidence of pulmonary embolism New airspace disease in the lower lobes may represent atelectasis or edema. Stable pulmonary nodules and upper lobe airspace disease, mediastinal adenopathy, and hepatic metastases D/ / Heath Sepulveda MD / Heath Sepulveda MD Interpreting Provider: Heath Sepulveda MD - Attending Attestation I examined this patient and my medical decision-making was reviewed with the CHILD WELFARE WORKER/PA/Advanced Practice Nurse/Resident Physician. I agree with the documented findings, disposition and treatment plan as described except to the extent set forth below. Agree with dR shaffer, no evidence of PE, improved clinicaly, fernandes not seem to be fluid overloaded, hold lasix, continue antibiotics and steroids. follow pulmonology recommendations.
[2016-09-20] MEDS ORDERED: Furosemide 20 MG/2 ML VIAL IVP ONE (18:45)
[2016-09-20] MEDS: Nicotine 21 MG PATCH.TD24 TD SCH (20:15)
[2016-09-21] MEDS: *HR* OxyCODONE Immed Rel 5 MG TABLET PO PRN ×4 (00:42→18:48)
[2016-09-21] MEDS: Vancomycin 1,500 MG in D5% in Water 250 ML IVPB SCH ×2 (00:44→12:07)
[2016-09-21] MEDS: methylPREDNISolone 125 MG/2 ML VIAL IVP SCH ×4 (00:44→18:14)
[2016-09-21 04:51] LABS: Basophils % 0.1 %
[2016-09-21 04:53] LABS: Hematocrit 33.5 % (37.5-50.1); Hemoglobin 9.7 g/dL (12.9-16.9); Immature Granulocytes % 1.5 % (0-4); Lymphocytes # 0.6 K/mcL (0.6-4.6); Lymphocytes % 2.3 %; Mean Corpuscular Hemoglobin 21.7 pg (28.0-33.3); Mean Corpuscular Volume 75.1 fL (83.0-100.0); Mean Platelet Volume 9.4 fL (9.4-12.4); Monocytes # 1.3 K/mcL (0.0-1.3); Monocytes % 4.9 %; Neutrophils # 24.5 K/mcL (1.6-8.9); Platelet Count 502 K/mcL (140-400); Red Blood Count 4.46 M/mcL (4.19-5.50); Red Cell Distribution Width 17.4 % (11.5-14.5); Segmented Neutrophils % 91.2 %
[2016-09-21] MEDS: Ipratropium/Albuterol Neb 3 ML IH SCH ×3 (04:56→16:21)
[2016-09-21 05:12] LABS: BUN/Creatinine Ratio 28 (6-26); Blood Urea Nitrogen 22 mg/dL (8-26); Calcium 9.1 mg/dL (8.6-10.8); Carbon Dioxide 29 mEq/L (19-29); Chloride 99 mEq/L (98-109); Glucose 192 mg/dL (70-99); Osmolality,Calculated 293 (280-300); Potassium 4.2 mEq/L (3.5-4.5); Sodium 137 mEq/L (136-145); eGFR For African Americans > 60 (> 60); eGFR For Non-African Americans > 60 (> 60)
[2016-09-21] MEDS: Azithromycin 500 MG in D5% in Water 250 ML IVPB SCH (05:14)
[2016-09-21 05:20] LABS: Platelet Estimate Increased (Normal)
[2016-09-21 05:21] LABS: Anisocytosis 1+ (Not Present)
[2016-09-21] MEDS: *HR* Enoxaparin 40 MG/0.4 ML SYRINGE SQ SCH (06:31)
[2016-09-21] MEDS: Cefepime HCl 1,000 MG in D5% in Water (Mini-Bag+) 100 ML IVPB SCH ×2 (06:37→18:14)
[2016-09-21] MEDS: Aspirin Enteric Coated 81 MG Tablet PO SCH (07:54)
[2016-09-21] MEDS: Metoprolol XL (24 HR) Succ 25 MG TAB.ER.24H PO SCH (07:55)
[2016-09-21] MEDS: Nicotine 21 MG PATCH.TD24 TD SCH (07:55)
--- NOTE | 2016-09-21 09:54 | Electrocardiograph Report ---
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
--- NOTE | 2016-09-21 10:02 | Oncology Inp Consult Note ---
Date of Encounter: 09/21/16 Time of Encounter: 12:00 Assessment and Plan (1) Liver metastases Status: Acute Assessment and plan: MAlignant neoplasm-per prelim path by pathology, immunostains to be reported tomorrow. Worsening SOB-which has improved to baseline--on abx, Rx for COPD-lymphangitic lung ca not ruled out. Discuss treatment once final path available, will obtain additional mutational testing as indicated pain under control on dilaudid. Stool softners added. Plan d/w patient who stated understanding. - Data of Consult Requesting Physician: Eben Fournier Primary Care Provider: Dorys Abraham CNP - Consult Narrative Reason for consult: lung mass, liver lesions History of present illness: Mr. Hernandez is a 56 year old male with past medical history significant for coronary artery disease, hypertension, COPD, recent hospitalization with symptoms of abdominal discomfort and shortness of breath productive phlegm for 3 weeks or so, (chronic smoking history quit in April 2016) underwent w/u with imaging that showed soft tissue mass in the left lower lobe measuring 4.9 x 2.5 cm suspicious for primary lung carcinoma, multiple liver metastatic disease, gastrohepatic lymph node periaortic lymph node aortocaval lymph node lymphadenopathy and brenda hepatis lymphadenopathy were also noted. Underwent a liver biopsy procedure, pulmonary is malignant neoplasm. Immunostains will be available tomorrow. Patient is rehospitalized with shortness of breath the CT images negative for any clot, possible air space disease in bilateral lower lobes and a stable pulmonary nodules. Has undergone treatment with antibiotics-van/cefipime for possible hospital-acquired pneumonia and COPD exacerbation. This AM he is doing well on O2 2Lt. Anxiety well controlled, no pain Past Med Surg Social Fam HX - Past Medical History Medical history: cancer, COPD, coronary artery disease, hyperlipidemia, hypertension, myocardial infarction, other Psychiatric history: anxiety - Past Surgical History Surgical History: other - Social History Smoking Status: Former smoker Smokeless Tobacco Status: No Alcohol use: occasionally Drug use: marijuana - Family History Mother Family Member Ethnicity: Non- Living Status: Still Living Hx Family Respiratory Disorders: Yes Father Family Member Ethnicity: Non- Living Status: Age at : 67 Cause of : Brain tumor Hx Family Cardiac Disorders: Yes (Brain aneurysm) Sister Family Member Ethnicity: Non- Living Status: Still Living Hx Family Cancer: Yes (Breast) Medications and Allergies Albuterol Sulfate [Proair Hfa] 2 puff IH Q6H PRN 09/13/16 [History] Aspirin [Lo-Dose Aspirin EC] 243 mg PO DAILY 09/13/16 [History] Atorvastatin Calcium [Lipitor] 80 mg PO DAILY 09/13/16 [History] Clopidogrel [Plavix] 75 mg PO DAILY 09/13/16 [History] Lisinopril [Zestril] 10 mg PO DAILY 09/13/16 [History] Metoprolol XL (24 HR) Succ [Toprol Xl] 25 mg PO DAILY 09/13/16 [History] Albuterol Neb [Proventil Neb] 2.5 mg IH Q2H PRN 30 Days 09/17/16 [Rx] Ferrous Sulfate 325 mg PO BIDWM 30 Days 09/17/16 [Rx] Levofloxacin [Levaquin] 750 mg PO DAILY #2 tablet 09/17/16 [Rx] OxyCODONE/APAP 7.5/325 [Percocet 7.5/325 MG] 1 each PO Q6HR PRN #60 tablet 09/17 [Rx] predniSONE [PredniSONE] 20 mg PO DAILY #2 tablet 09/17/16 [Rx] Oxygen 1 each .ROUTE AD 09/20/16 [History] Umeclidinium Brm/Vilanterol Tr [Anoro Ellipta 62.5-25 Mcg INH] 1 puff IH DAILY 09/20/16 [History] Allergies No Known Allergies Allergy (Verified 06/06/15 14:44) Review of systems: as in HPI. 14 pt ROS performed and neg Oncology - Exam - Constitutional Vitals: Temp Pulse Resp BP Pulse Ox 97.6 F 85 19 133/87 96 09/21/16 07:16 09/21/16 07:46 09/21/16 07:16 09/21/16 07:16 09/21/16 07:46 General appearance: obese - Head Head exam: Present: atraumatic, normal inspection - Eye Eye exam: Present: sclera anicteric - ENT ENT exam: Present: mucous membranes moist - Neck Neck exam: Present: full ROM, normal inspection - Respiratory Respiratory exam: Present: CTAB - Cardiovascular Cardiovascular exam: Present: +S1, +S2 - GI/Abdominal GI/Abdominal exam: Present: distended, soft - Extremities Exam Extremities exam: Present: normal inspection - Neurological Exam Neurological exam: Present: alert, CN II-XII intact, oriented X3, no focal deficits - Psychiatric Psychiatric exam: Present: normal affect Oncology - Results - Labs Labs: Short CBC 09/21/16 Range/Units 04:23 WBC 26.9 H (4.3-11.1) K/mcL Hgb 9.7 L (12.9-16.9) g/dL Hct 33.5 L (37.5-50.1) % Plt Count 502 H (140-400) K/mcL Neutrophils # 24.5 H (1.6-8.9) K/mcL BMP 09/21/16 04:23 Sodium 137 Potassium 4.2 Chloride 99 Carbon Dioxide 29 BUN 22 Creatinine 0.78 Glucose 192 H Calcium 9.1 - Imaging and Cardiology CT scan - chest Status: image reviewed by me Consult Discharge Plan - Plan Referrals: Dorys Abraham, BARREL HANDLER [Primary Care Provider] - (SENT WEB REQUEST ON 10-21-16 @ [id number])
--- NOTE | 2016-09-21 10:53 | Internal Med Progress Note ---
<Manny Juares - Last Filed: 09/21/16 13:55> Date of Encounter: 09/21/16 Time of Encounter: 09:45 - Assessment and plan (1) Acute and chronic respiratory failure Current Visit: Yes Status: Acute Assessment and plan: Patient acute on chronic respiratory failure likely multifactorial. Recent diagnosis of apparent lung malignancy with history of COPD and obstructive sleep apnea. He had recently been in the hospital and with newly found airspace disease this could represent a hospital-acquired pneumonia causing COPD exacerbation. He could also be pulmonary edema or worsening of his lung malignancy. CTA of his chest was performed that showed there is no pulmonary embolism present. Patient reports continued improvement in adequate breathing on nasal cannula. He does state that the BiPAP is more helpful for him than his CPAP when he sleeps at night. Patient currently on azithromycin, cefepime, and vancomycin day 2 Patient also receiving 60 mg IV Solu-Medrol every 6 hours No wheezes on auscultation of patient long, will consider decreasing patient steroids Patient receiving scheduled breathing treatments with albuterol/ipratropium 4 times a day Pulmonology is following and appreciate recommendations for continued management /care Oncology consulted for concern of likely malignancy Will wait for final pathology We will hold Lasix for now given her normal BNP and patient improvement Qualifiers: Respiratory failure complication: hypoxia Qualified Code(s): J96.21 - Acute and chronic respiratory failure with hypoxia (2) COPD exacerbation Current Visit: Yes Status: Acute Assessment and plan: Plan as above (3) Primary lung malignancy of unknown cell type Current Visit: Yes Status: Acute Assessment and plan: Patient recently diagnosed metastatic lung cancer with lung metastases present. Pathology pending from 09/17/16. Chest CTA performed on 09/20/16 showed no evidence of PE, but new airspace disease in the lower lobes that could be atelectasis or edema, it also showed redemonstration of stable appearing upper airspace disease, hilar adenopathy, pulmonary nodules. Plan as above Qualifiers: Laterality: left Qualified Code(s): C34.92 - Malignant neoplasm of unspecified part of left bronchus or lung (4) Liver metastases Current Visit: No Status: Acute (5) DVT prophylaxis Current Visit: Yes Status: Acute Assessment and plan: Enoxaparin 40 mg subcutaneous daily - Subjective Interval history: Patient reports new return to baseline this morning. He is having no complaints currently and is able to lay down without problem. He denies any fever/chills, chest pain, pleuritic pain, nausea/vomiting. He does report some continued abdominal pain in his right upper and right lower quadrants but that this is well controlled with pain medication and is receiving. He does report that he notices a decrease in his ability. On his oxygen is lowered, was able to maintain oxygen saturations in the low 90s on 4 L nasal cannula. - Constitutional Vitals: Temp Pulse Resp BP Pulse Ox 97.6 F 85 19 133/87 96 09/21/16 07:16 09/21/16 07:46 09/21/16 07:16 09/21/16 07:16 09/21/16 07:46 General appearance: Present: A&O X 3 Exam: General: Cooperative, pleasant, no acute distress, alert and oriented 3, answers questions appropriately HEENT: Normocephalic, atraumatic, neck supple, trachea midline, Conjunctiva pink , sclera anicteric, oral mucosa moist, no orophargeal erythema or exudates Respiratory: No accessory muscle usage, mild bibasilar rales on auscultation, diminished breath noises, rhonchi over right lung Cardiovascular: Regular rate and rhythm, S1 and S2 present, no murmurs/rubs/ gallops/clicks appreciated GI/abdominal: Nondistended, tenderness to palpation in right upper and right lower quadrant, soft, normal bowel sounds, no peritoneal signs, protuberant Extremities: No calf tenderness, noncyanotic, right BKA, warm, left lower extremity pulse palpable and symmetrical, mild pretibial edema on left lower extremity Neurological: Alert and oriented 3, no facial droop, no focal deficits Skin: Dry, intact, normal color Internal Medicine: Result - Labs CBC & Chem 7: 09/21/16 04:23 09/21/16 04:23 Labs: Short CBC 09/21/16 Range/Units 04:23 WBC 26.9 H (4.3-11.1) K/mcL Hgb 9.7 L (12.9-16.9) g/dL Hct 33.5 L (37.5-50.1) % Plt Count 502 H (140-400) K/mcL Neutrophils # 24.5 H (1.6-8.9) K/mcL BMP 09/21/16 04:23 Sodium 137 Potassium 4.2 Chloride 99 Carbon Dioxide 29 BUN 22 Creatinine 0.78 Glucose 192 H Calcium 9.1 Consult Discharge Plan - Plan Referrals: Dorys Abraham, STALLION MANAGER [Primary Care Provider] - (SENT WEB REQUEST ON 10-21-16 @ 8050) <FournierEben Sampson - Last Filed: 09/21/16 14:57> Date of Encounter: 09/21/16 - Constitutional Vitals: Temp Pulse Resp BP Pulse Ox 97.6 F 92 19 130/80 92 09/21/16 11:57 09/21/16 11:58 09/21/16 11:57 09/21/16 11:57 09/21/16 11:57 Internal Medicine: Result - Labs CBC & Chem 7: 09/21/16 04:23 09/21/16 04:23 Labs: Short CBC 09/21/16 Range/Units 04:23 WBC 26.9 H (4.3-11.1) K/mcL Hgb 9.7 L (12.9-16.9) g/dL Hct 33.5 L (37.5-50.1) % Plt Count 502 H (140-400) K/mcL Neutrophils # 24.5 H (1.6-8.9) K/mcL [facility] 09/21/16 04:23 Sodium 137 Potassium 4.2 Chloride 99 Carbon Dioxide 29 BUN 22 Creatinine 0.78 Glucose 192 H Calcium 9.1 - Attending Attestation I examined this patient and my medical decision-making was reviewed with the INSTRUCTIONAL TECHNOLOGY COACH/PA/Advanced Practice Nurse/Resident Physician. I agree with the documented findings, disposition and treatment plan as described except to the extent set forth below. Contnue iv antibioics deescalate based on culutres, bipap prn. follow oncology and pulmonology input.
--- NOTE | 2016-09-21 13:21 | Pulmonology Progress Note ---
<Romeo Hill - Last Filed: 09/21/16 13:15> Date of Encounter: 09/21/16 Time of Encounter: 13:15 Assessment and Plan (1) Acute and chronic respiratory failure Current Visit: Yes Status: Acute 56 y/o M admitted for acute on chornic respiratory failure 2nd to bacterial pneumonia in setting of metastatic lung cancer, COPD, and KAVITHA. PE r/o CTA negative CTA shows right lower lobe infiltrates -pneumonia etiolog: aspiration, HAP Currently on azithromycin, cefepime and vancomycin day 2. will descalate pending cultures. Continue supplemental O2 continue bipap Qualifiers: Respiratory failure complication: hypoxia Qualified Code(s): J96.21 - Acute and chronic respiratory failure with hypoxia (2) Sepsis Current Visit: Yes Status: Acute 2nd to pneumonia presented tachycardic with WBC 22.1 wbc increased to 26.9 vanc/cefepime and azithormycin day 2 Qualifiers: Sepsis type: sepsis due to unspecified organism Qualified Code(s): A41.9 - Sepsis, unspecified organism (3) Primary lung malignancy of unknown cell type Current Visit: Yes Status: Acute CT chest shows left lobe mass , mediastinal adenopathy and diffuse liver metastases s/p liver biopsy. awaiting final biopsy results oncology following Qualifiers: Laterality: left Qualified Code(s): C34.92 - Malignant neoplasm of unspecified part of left bronchus or lung (4) COPD exacerbation Current Visit: Yes Status: Acute 2nd to penumonia. On 2L O2 at home continue bronchodialators, steroids, and antibiotics, O2. (5) History of pulmonary embolism Current Visit: Yes Status: Chronic CTA negative for PE (6) DVT prophylaxis Current Visit: Yes Status: Acute continue lovenox (7) AKVITHA (obstructive sleep apnea) Current Visit: Yes Status: Acute hx of KAVITHA on CPAP at home. Continue BIPAP at night. Subjective Principal diagnosis: Acute on chronic respiratory failure Interval history: Patient states sob improved since admission. He denies productive sputum, cough , chest pain. States he has mild abdominal pain. Objective PUL Vital signs: Last Vital Signs Temp 97.6 F 09/21/16 11:57 Pulse 92 09/21/16 11:58 Resp 19 09/21/16 11:57 BP 130/80 09/21/16 11:57 Pulse Ox 92 09/21/16 11:57 General appearance: no acute distress Eyes: nonicteric Auscultation: left: clear, right: rhonchi (upper and lower lobe ) Cardiovascular: regular rate and rhythm Gastrointestinal: normoactive bowel sounds, soft, tender (left upper lobe ) Integumentary: normal Extremities: no cyanosis, no clubbing, pink and warm, edema (1+ pitting) Results - Laboratory Findings CBC and BMP: 09/21/16 04:23 09/21/16 04:23 Abnormal lab findings: Abnormal lab results WBC 26.9 K/mcL (4.3-11.1) H 09/21/16 04:23 Hgb 9.7 g/dL (12.9-16.9) L 09/21/16 04:23 Hct 33.5 % (37.5-50.1) L 09/21/16 04:23 MCV 75.1 fL (83.0-100.0) L 09/21/16 04:23 MCH 21.7 pg (28.0-33.3) L 09/21/16 04:23 MCHC 29.0 g/dL (31.6-35.5) L 09/21/16 04:23 RDW 17.4 % (11.5-14.5) H 09/21/16 04:23 Plt Count 502 K/mcL (140-400) H 09/21/16 04:23 Neutrophils # 24.5 K/mcL (1.6-8.9) H 09/21/16 04:23 Platelet Estimate Increased (Normal) H 09/21/16 04:23 Anisocytosis 1+ (Not Present) A 09/21/16 04:23 BUN/Creatinine Ratio 28 (6-26) H 09/21/16 04:23 Glucose 192 mg/dL (70-99) H 09/21/16 04:23 - Microbiology Findings Microbiology Findings: Microbiology, Last 48 Hours 09/21/16 11:10 Sputum Culture - Final Sputum - Clinical Findings Intake & Output: Intake & Output 09/20/16 09/21/16 09/21/16 23:59 07:59 15:59 Intake Total 820 / 820 600 / 600 300 / 300 Output Total 600 / 600 0 / 0 0 / 0 Balance 220 / 220 600 / 600 300 / 300 Weight 81.012 kg Consult Discharge Plan - Plan Referrals: Dorys Abraham, LEAD MOBILE DEVELOPER [Primary Care Provider] - (SENT WEB REQUEST ON 10-21-16 @ 2944) <IrmamateoAugustine Telma - Last Filed: 09/21/16 17:20> Date of Encounter: 09/21/16 Objective PUL Vital signs: Last Vital Signs Temp 97.7 F 09/21/16 17:06 Pulse 96 09/21/16 17:06 Resp 19 09/21/16 17:06 BP 144/96 09/21/16 17:06 Pulse Ox 90 09/21/16 17:06 Results - Laboratory Findings CBC and BMP: 09/21/16 04:23 09/21/16 04:23 Abnormal lab findings: Abnormal lab results WBC 26.9 K/mcL (4.3-11.1) H 09/21/16 04:23 Hgb 9.7 g/dL (12.9-16.9) L 09/21/16 04:23 Hct 33.5 % (37.5-50.1) L 09/21/16 04:23 MCV 75.1 fL (83.0-100.0) L 09/21/16 04:23 MCH 21.7 pg (28.0-33.3) L 09/21/16 04:23 MCHC 29.0 g/dL (31.6-35.5) L 09/21/16 04:23 RDW 17.4 % (11.5-14.5) H 09/21/16 04:23 Plt Count 502 K/mcL (140-400) H 09/21/16 04:23 Neutrophils # 24.5 K/mcL (1.6-8.9) H 09/21/16 04:23 Platelet Estimate Increased (Normal) H 09/21/16 04:23 Anisocytosis 1+ (Not Present) A 09/21/16 04:23 BUN/Creatinine Ratio 28 (6-26) H 09/21/16 04:23 Glucose 192 mg/dL (70-99) H 09/21/16 04:23 - Microbiology Findings Microbiology Findings: Microbiology, Last 48 Hours 09/21/16 11:10 Sputum Culture - Final Sputum - Clinical Findings Intake & Output: Intake & Output 09/21/16 09/21/16 09/21/16 07:59 15:59 23:59 Intake Total 600 / 600 790 / 790 Output Total 0 / 0 0 / 0 Balance 600 / 600 790 / 790 Weight 81.012 kg - Attending Attestation I examined this patient and my medical decision-making was reviewed with the FEED MILLER/PA/Advanced Practice Nurse/Resident Physician. I agree with the documented findings, disposition and treatment plan as described except to the extent set forth below. Patient seen and examined. Labs, radiology, chart personally reviewed. 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 Patient feels BiPAP is helping him better than CPAP and communicated with DME that we will need to change his setting as outpatient. Cardiovascular: stable GI: Nutrition per dietary and GI prophylaxis per routine. Awaiting for the biopsy result Heme: DVT prophylaxis per routine
[2016-09-21] MEDS: Sennosides/Docusate Sodium TABLET PO SCH (21:46)
[2016-09-22] MEDS: methylPREDNISolone 125 MG/2 ML VIAL IVP SCH ×3 (01:52→12:03)
[2016-09-22] MEDS: Ipratropium/Albuterol Neb 3 ML IH SCH ×5 (02:25→23:37)
[2016-09-22] MEDS: *HR* OxyCODONE Immed Rel 5 MG TABLET PO PRN ×4 (02:27→22:03)
[2016-09-22] MEDS: *HR* Morphine 2 MG/ML SYRINGE IVP PRN (02:39)
[2016-09-22 03:23] LABS: Basophils % 0.1 %; Hemoglobin 9.9 g/dL (12.9-16.9)
[2016-09-22 03:24] LABS: Immature Granulocytes % 2.2 % (0-4); Lymphocytes # 0.7 K/mcL (0.6-4.6); Lymphocytes % 2.6 %; Mean Corpuscular Hemoglobin 22.9 pg (28.0-33.3); Mean Corpuscular Volume 76.4 fL (83.0-100.0); Mean Platelet Volume 9.7 fL (9.4-12.4); Monocytes # 1.5 K/mcL (0.0-1.3); Monocytes % 5.2 %; Neutrophils # 25.6 K/mcL (1.6-8.9); Nucleated Red Blood Cells 0.1 /100 WBC (0); Platelet Count 529 K/mcL (140-400); Red Blood Count 4.32 M/mcL (4.19-5.50); Red Cell Distribution Width 17.9 % (11.5-14.5); Segmented Neutrophils % 89.9 %
[2016-09-22 03:42] LABS: BUN/Creatinine Ratio 32 (6-26); Blood Urea Nitrogen 22 mg/dL (8-26); Calcium 8.9 mg/dL (8.6-10.8); Carbon Dioxide 32 mEq/L (19-29); Chloride 101 mEq/L (98-109); Glucose 142 mg/dL (70-99); Osmolality,Calculated 296 (280-300); Potassium 4.1 mEq/L (3.5-4.5); Sodium 140 mEq/L (136-145); eGFR For African Americans > 60 (> 60); eGFR For Non-African Americans > 60 (> 60)
[2016-09-22 03:46] LABS: Platelet Estimate Increased (Normal)
[2016-09-22 03:47] LABS: Anisocytosis 1+ (Not Present)
[2016-09-22] MEDS ORDERED: Vancomycin 1,500 MG in D5% in Water 250 ML IVPB SCH (04:00)
[2016-09-22] MEDS: Vancomycin 1,500 MG in D5% in Water 250 ML IVPB SCH (04:19)
[2016-09-22] MEDS: Azithromycin 500 MG in D5% in Water 250 ML IVPB SCH (04:39)
[2016-09-22] MEDS: Cefepime HCl 1,000 MG in D5% in Water (Mini-Bag+) 100 ML IVPB SCH (06:04)
[2016-09-22] MEDS: *HR* Enoxaparin 40 MG/0.4 ML SYRINGE SQ SCH (06:05)
[2016-09-22] MEDS: Metoprolol XL (24 HR) Succ 25 MG TAB.ER.24H PO SCH (08:54)
[2016-09-22] MEDS: Nicotine 21 MG PATCH.TD24 TD SCH (08:54)
[2016-09-22] MEDS: Sennosides/Docusate Sodium TABLET PO SCH ×2 (08:55→20:15)
[2016-09-22] MEDS: Aspirin Enteric Coated 81 MG Tablet PO SCH (08:55)
--- NOTE | 2016-09-22 11:00 | Pulmonology Progress Note ---
<Romeo Hill - Last Filed: 09/22/16 14:17> Date of Encounter: 09/22/16 Time of Encounter: 10:59 Assessment and Plan (1) Acute and chronic respiratory failure Current Visit: Yes Status: Acute 56 y/o M admitted for acute on chornic respiratory failure 2nd to bacterial pneumonia in setting of metastatic lung cancer, COPD, and KAVITHA. PE r/o CTA negative CTA shows right lower lobe infiltrates -pneumonia etiology: aspiration, HAP Currently on azithromycin, cefepime and vancomycin day 3 -d/c azithromycin Clinically patient is on 2 L oxygen, improved shortness of breath, lung exam shows improved aeration. Patient has worsening white blood cell count while being on broad-spectrum antibiotics. May be 2nd to solu-medrol, malignancy: continue monitoring Qualifiers: Respiratory failure complication: hypoxia Qualified Code(s): J96.21 - Acute and chronic respiratory failure with hypoxia (2) Sepsis Current Visit: Yes Status: Resolved 2nd to pneumonia presented tachycardic with WBC 22.1 wbc worsening, may be 2nd to solumedrol, malignancy vanc/cefepime and azithormycin day 3 Qualifiers: Sepsis type: sepsis due to unspecified organism Qualified Code(s): A41.9 - Sepsis, unspecified organism (3) Primary lung malignancy of unknown cell type Current Visit: Yes Status: Acute CT chest shows left lobe mass , mediastinal adenopathy and diffuse liver metastases s/p liver biopsy. Results:-Metastatic nonsmall cell carcinoma consistent with pulmonary adenocarcinoma. oncology following Qualifiers: Laterality: left Qualified Code(s): C34.92 - Malignant neoplasm of unspecified part of left bronchus or lung (4) COPD exacerbation Current Visit: Yes Status: Acute 2nd to penumonia with underling adenocarcinoma lung On 2L O2 at home continue bronchodialators, steroids, and antibiotics, O2. (5) History of pulmonary embolism Current Visit: Yes Status: Chronic CTA negative for PE (6) DVT prophylaxis Current Visit: Yes Status: Acute continue lovenox (7) KAVITHA (obstructive sleep apnea) Current Visit: Yes Status: Acute hx of KAVITHA on CPAP at home. Patient is tolerating BiPAP better at night. States he sleeps well and respiratory status is improved. Continue BiPAP Subjective Principal diagnosis: Acute on chronic respiratory failure Interval history: Patient states sob improved since admission. States BiPAP helps him tremendously. Now on 2 L nasal cannula. He denies productive sputum, cough, chest pain. Reports abdominal pain is improved. Objective PUL Vital signs: Last Vital Signs Temp 98 F 09/22/16 09:07 Pulse 104 09/22/16 09:07 Resp 22 09/22/16 09:22 BP 165/97 09/22/16 09:07 Pulse Ox 92 09/22/16 09:22 General appearance: no acute distress Eyes: nonicteric ENT: oropharynx moist, other (thrush ) Mallampati (class): 3 Neck: supple Effort: mildly labored Auscultation: right: rales, bilateral: clear (Upper lobes) Cardiovascular: regular rate and rhythm Gastrointestinal: normoactive bowel sounds, non-distended Integumentary: normal Extremities: no cyanosis, no clubbing, edema (1+) Musculoskeletal: no deformities, ROM normal normal mental status, non-focal exam mood appropriate, affect normal Results - Laboratory Findings CBC and BMP: 09/22/16 01:37 09/22/16 01:37 Abnormal lab findings: Abnormal lab results WBC 28.5 K/mcL (4.3-11.1) H 09/22/16 01:37 Hgb 9.9 g/dL (12.9-16.9) L 09/22/16 01:37 Hct 33.0 % (37.5-50.1) L 09/22/16 01:37 MCV 76.4 fL (83.0-100.0) L 09/22/16 01:37 MCH 22.9 pg (28.0-33.3) L 09/22/16 01:37 MCHC 30.0 g/dL (31.6-35.5) L 09/22/16 01:37 RDW 17.9 % (11.5-14.5) H 09/22/16 01:37 Plt Count 529 K/mcL (140-400) H 09/22/16 01:37 Neutrophils # 25.6 K/mcL (1.6-8.9) H 09/22/16 01:37 Monocytes # 1.5 K/mcL (0.0-1.3) H 09/22/16 01:37 Nucleated RBCs/100 WBC 0.1 /100 WBC (0) H 09/22/16 01:37 Platelet Estimate Increased (Normal) H 09/22/16 01:37 Anisocytosis 1+ (Not Present) A 09/22/16 01:37 Carbon Dioxide 32 mEq/L (19-29) H 09/22/16 01:37 Creatinine 0.69 mg/dL (0.72-1.25) L 09/22/16 01:37 BUN/Creatinine Ratio 32 (6-26) H 09/22/16 01:37 Glucose 142 mg/dL (70-99) H 09/22/16 01:37 - Microbiology Findings Microbiology Findings: Microbiology, Last 48 Hours 09/20/16 08:59 Blood Culture - Preliminary Peripheral Venipuncture No growth. 09/21/16 11:10 Sputum Culture - Final Sputum - Clinical Findings Intake & Output: Intake & Output 09/21/16 09/22/16 09/22/16 23:59 07:59 15:59 Intake Total 340 / 340 500 / 500 100 / 100 Output Total 600 / 600 1000 / 1000 800 / 800 Balance -260 / -260 -500 / -500 -700 / -700 Weight 81.5 kg Consult Discharge Plan - Plan Referrals: Dorys Abraham, ASSISTANT TEACHER PRIMARY [Primary Care Provider] - 10/06/16 2:00 pm (NEW PATIENT VISIT) <Augustine James - Last Filed: 09/22/16 17:50> Date of Encounter: 09/22/16 Objective PUL Vital signs: Last Vital Signs Temp 98.7 F 09/22/16 15:53 Pulse 100 09/22/16 15:53 Resp 24 09/22/16 16:10 BP 168/100 09/22/16 15:53 Pulse Ox 91 09/22/16 16:10 Results - Laboratory Findings CBC and BMP: 09/22/16 01:37 09/22/16 01:37 Abnormal lab findings: Abnormal lab results WBC 28.5 K/mcL (4.3-11.1) H 09/22/16 01:37 Hgb 9.9 g/dL (12.9-16.9) L 09/22/16 01:37 Hct 33.0 % (37.5-50.1) L 09/22/16 01:37 MCV 76.4 fL (83.0-100.0) L 09/22/16 01:37 MCH 22.9 pg (28.0-33.3) L 09/22/16 01:37 MCHC 30.0 g/dL (31.6-35.5) L 09/22/16 01:37 RDW 17.9 % (11.5-14.5) H 09/22/16 01:37 Plt Count 529 K/mcL (140-400) H 09/22/16 01:37 Neutrophils # 25.6 K/mcL (1.6-8.9) H 09/22/16 01:37 Monocytes # 1.5 K/mcL (0.0-1.3) H 09/22/16 01:37 Nucleated RBCs/100 WBC 0.1 /100 WBC (0) H 09/22/16 01:37 Platelet Estimate Increased (Normal) H 09/22/16 01:37 Anisocytosis 1+ (Not Present) A 09/22/16 01:37 Carbon Dioxide 32 mEq/L (19-29) H 09/22/16 01:37 Creatinine 0.69 mg/dL (0.72-1.25) L 09/22/16 01:37 BUN/Creatinine Ratio 32 (6-26) H 09/22/16 01:37 Glucose 142 mg/dL (70-99) H 09/22/16 01:37 POC Glucose 121 (58-89) H 09/22/16 12:19 - Microbiology Findings Microbiology Findings: Microbiology, Last 48 Hours 09/20/16 08:59 Blood Culture - Preliminary Peripheral Venipuncture No growth. 09/21/16 11:10 Sputum Culture - Final Sputum - Clinical Findings Intake & Output: Intake & Output 09/22/16 09/22/16 09/22/16 07:59 15:59 23:59 Intake Total 500 / 500 820 / 820 Output Total 1000 / 1000 1125 / 1125 Balance -500 / -500 -305 / -305 Weight 81.5 kg - Attending Attestation I examined this patient and my medical decision-making was reviewed with the CAPTAIN WAITER/PA/Advanced Practice Nurse/Resident Physician. I agree with the documented findings, disposition and treatment plan as described except to the extent set forth below. Patient seen and examined. Labs, radiology, chart personally reviewed. 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 Patient to follow-up with oncology
--- NOTE | 2016-09-22 11:54 | Internal Med Progress Note ---
Date of Encounter: 09/22/16 Time of Encounter: 11:54 - Assessment and plan (1) COPD exacerbation Current Visit: Yes Status: Acute Assessment and plan: Improving, continue nebs, steroids, O2 supplements (2) CAD (coronary artery disease) Current Visit: Yes Status: Chronic Assessment and plan: Chronic, stable, no chest pain Qualifiers: Coronary Disease-Associated Artery/Lesion type: unspecified vessel or lesion type [place] vs. transplanted heart: [place] heart Associated angina: angina presence unspecified Qualified Code(s): I25.10 - Atherosclerotic heart disease of [place] coronary artery without angina pectoris (3) Hypertension Current Visit: Yes Status: Chronic Assessment and plan: Controlled, continue home meds Qualifiers: Hypertension type: essential hypertension Qualified Code(s): I10 - Essential (primary) hypertension (4) Respiratory failure Current Visit: Yes Status: Acute Assessment and plan: Patient with acute on chronic respiratory failure likely multifactorial. Recent diagnosis of apparent lung malignancy with history of COPD and obstructive sleep apnea. He had recently been in the hospital and with newly found airspace disease this could represent a hospital-acquired pneumonia causing COPD exacerbation. CTA of his chest was performed that showed there is no pulmonary embolism present. Patient reports continued improvement in adequate breathing on nasal cannula. He does state that the BiPAP is more helpful for him than his CPAP when he sleeps at night. Patient currently on azithromycin, cefepime, and vancomycin day 3 Discontinue Azithromycin Change solumedrol to prednisone po Follow cultures Qualifiers: Chronicity: acute on chronic Respiratory failure complication: hypoxia Qualified Code(s): J96.21 - Acute and chronic respiratory failure with hypoxia (5) Anemia Current Visit: Yes Status: Chronic Assessment and plan: Chronic, stable Qualifiers: Anemia type: other cause Other causes of anemia: other cause, not classified Qualified Code(s): D64.89 - Other specified anemias - Subjective Interval history: 56 M with Hx of COPD on home O2, KAVITHA, admitted and being managed for acute on chronic respiratory falure secondary to pneumonia Seen at bedside Denies new complains - Constitutional Vitals: Temp Pulse Resp BP Pulse Ox 98 F 104 22 165/97 92 09/22/16 09:07 09/22/16 09:07 09/22/16 09:22 09/22/16 09:07 09/22/16 09:22 General appearance: Present: A&O X 3, pleasant, no acute distress - Head Head exam: Present: atraumatic, normocephalic - Eye Eye exam: Present: PERRL, conjuntiva pink, sclera anicteric Pupils: Present: PERRL - Neck Neck exam general surgery: Present: supple, trachea midline. Absent: lymphadenopathy - Respiratory Respiratory exam: Present: CTAB. Absent: accessory muscle use, rales, rhonchi, wheezes - Cardiovascular Cardiovascular exam: Present: RRR, +S1, +S2. Absent: diastolic murmur, gallop, rubs, systolic murmur - GI/Abdominal GI/Abdominal exam: Present: normal bowel sounds, soft, no peritoneal signs. Absent: distended, tenderness - Extremities Exam Extremities exam: Present: warm, radial pulses palpable and symetrical. 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 Absent: pronater drift, facial droop, speech deficit - Skin Skin exam: Present: dry, intact Internal Medicine: Result - Labs CBC & Chem 7: 09/22/16 01:37 09/22/16 01:37 Labs: Short CBC 09/22/16 Range/Units 01:37 WBC 28.5 H (4.3-11.1) K/mcL Hgb 9.9 L (12.9-16.9) g/dL Hct 33.0 L (37.5-50.1) % Plt Count 529 H (140-400) K/mcL Neutrophils # 25.6 H (1.6-8.9) K/mcL BMP 09/22/16 01:37 Sodium 140 Potassium 4.1 Chloride 101 Carbon Dioxide 32 H BUN 22 Creatinine 0.69 L Glucose 142 H Calcium 8.9 Consult Discharge Plan - Plan Referrals: Dorys Abraham NOVELTY WORKER [Primary Care Provider] - 10/06/16 2:00 pm (NEW PATIENT VISIT)
[2016-09-22] MEDS ORDERED: Aminoglycoside Consult 1 EACH MC ONE (12:00)
[2016-09-22] MEDS ORDERED: Metoprolol XL (24 HR) Succ 25 MG TAB.ER.24H PO ONE (16:00)
[2016-09-22] MEDS ORDERED: LEVOFLOXACIN 750 MG/150 ML IVPB SCH (16:00)
[2016-09-22] MEDS: LEVOFLOXACIN 750 MG/150 ML IVPB SCH (17:47)
[2016-09-23] MEDS: *HR* OxyCODONE Immed Rel 5 MG TABLET PO PRN ×3 (04:20→18:19)
[2016-09-23] MEDS: Ipratropium/Albuterol Neb 3 ML IH SCH ×3 (04:51→16:25)
[2016-09-23 06:02] LABS: Basophils % 0.2 %; Eosinophils # 0.4 K/mcL (0.0-0.6); Eosinophils % 1.6 %; Hematocrit 33.6 % (37.5-50.1); Hemoglobin 10.4 g/dL (12.9-16.9); Immature Granulocytes % 1.7 % (0-4); Lymphocytes # 1.5 K/mcL (0.6-4.6); Lymphocytes % 6.1 %; Mean Corpuscular Hemoglobin 22.8 pg (28.0-33.3); Mean Corpuscular Volume 73.7 fL (83.0-100.0); Mean Platelet Volume 9.6 fL (9.4-12.4); Monocytes % 8.1 %; Nucleated Red Blood Cells 0.1 /100 WBC (0); Platelet Count 537 K/mcL (140-400); Red Blood Count 4.56 M/mcL (4.19-5.50); Red Cell Distribution Width 18.7 % (11.5-14.5); Segmented Neutrophils % 82.3 %
[2016-09-23] MEDS: *HR* Enoxaparin 40 MG/0.4 ML SYRINGE SQ SCH (06:04)
--- NOTE | 2016-09-23 08:38 | Oncology Inp Progress Note ---
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 Path report reviewed and information provided to patient bedside. Detailed discussion held about course prognoiss of stage IV lung cancer. He is reluctant to go for treatment due to multiple friends having issues with chemotherapy. Mutational testing/PDL1 to be sent. Dicuss in tumor board and follow him in clinic Treatment information to be provided today. Patient is agreeable to the above plan of care. Oncology: Subj Interval history: SOB stable, no pain min anxiety - Constitutional Vitals: Vital Signs Temp Pulse Resp BP Pulse Ox 09/23/16 07:00 98.4 F 113 22 147/93 90 09/23/16 05:07 98 F 114 20 143/87 95 09/23/16 04:51 22 91 09/23/16 01:33 97.6 F 95 18 147/90 09/22/16 23:37 23 90 09/22/16 20:43 97.8 F 94 18 157/101 93 09/22/16 16:10 24 91 09/22/16 15:53 98.7 F 100 24 168/100 91 09/22/16 14:00 100 22 90 09/22/16 13:00 99 09/22/16 12:13 97.8 F 99 22 152/93 92 09/22/16 09:22 22 92 09/22/16 09:07 98 F 104 22 165/97 92 09/22/16 09:00 92 Intake and Output 09/22/16 09/23/16 09/23/16 23:59 07:59 15:59 Intake Total 600 / 600 30 / 30 Output Total 1400 / 1400 Balance -800 / -800 30 / 30 Intake: Oral 600 / 600 30 / 30 Output: Urine 1400 / 1400 Other: Meal Dinner Percent of Meal Consumed 100% Weight 81.2 kg Patient Weight 09/23/16 23:59 Weight 81.2 kg General appearance: average body habitus - Head Head exam: Present: atraumatic, normal inspection - Eye Eye exam: Present: sclera anicteric - ENT ENT exam: Present: mucous membranes moist - Neck Neck exam: Present: full ROM, normal inspection - Respiratory Respiratory exam: Present: CTAB - Cardiovascular Cardiovascular exam: Present: +S1, +S2, tachycardia - GI/Abdominal GI/Abdominal exam: Present: normal bowel sounds, soft - Extremities Exam Extremities exam: Present: normal inspection - Neurological Exam Neurological exam: Present: alert, oriented X3 - Psychiatric Psychiatric exam: Present: normal affect Oncology: Obj Data - Labs CBC & Chem 7: 09/23/16 05:06 09/22/16 01:37 Labs: Laboratory Results - last 24 hr 09/22/16 09/23/16 12:19 05:06 WBC 24.3 H RBC 4.56 Hgb 10.4 L Hct 33.6 L MCV 73.7 L MCH 22.8 L MCHC 31.0 L RDW 18.7 H Plt Count 537 H MPV 9.6 Immature Gran % 1.7 Seg Neutrophils % 82.3 Lymphocytes % 6.1 Monocytes % 8.1 Eosinophils % 1.6 Basophils % 0.2 Neutrophils # 20.0 H Lymphocytes # 1.5 Monocytes # 2.0 H Eosinophils # 0.4 Basophils # 0.0 Nucleated RBCs/100 WBC 0.1 H POC Glucose 121 H Consult Discharge Plan - Plan Referrals: Dorys Abraham, NEEDLE MAKER [Primary Care Provider] - 10/06/16 2:00 pm (NEW PATIENT VISIT)
[2016-09-23] MEDS: Aspirin Enteric Coated 81 MG Tablet PO SCH (08:42)
[2016-09-23] MEDS: Nicotine 21 MG PATCH.TD24 TD SCH (08:42)
[2016-09-23] MEDS: Sennosides/Docusate Sodium TABLET PO SCH (08:42)
[2016-09-23] MEDS ORDERED: Metoprolol XL (24 HR) Succ 50 MG TAB.ER.24H PO SCH (09:00)
[2016-09-23] MEDS ORDERED: predniSONE 20 MG TABLET PO SCH (09:00)
--- NOTE | 2016-09-23 10:20 | Pulmonology Progress Note ---
<[place] - Last Filed: 09/23/16 11:06> Date of Encounter: 09/23/16 Time of Encounter: 10:17 Assessment and Plan (1) Acute and chronic respiratory failure Current Visit: Yes Status: Acute 56 y/o M admitted for acute on chornic respiratory failure 2nd to bacterial pneumonia in setting of metastatic lung cancer, COPD, and KAVITHA. PE r/o CTA negative CTA shows right lower lobe infiltrates -pneumonia etiology: aspiration, HAP continue cefepime and vancomycin day 4 Patient's shortness of breath has worsened this morning. Supplement oxygen increased from 2 L to 3 L will obtain chest xray tomorrow morning continue bipap at night. Qualifiers: Respiratory failure complication: hypoxia Qualified Code(s): J96.21 - Acute and chronic respiratory failure with hypoxia (2) Sepsis Current Visit: Yes Status: Resolved 2nd to pneumonia presented tachycardic with WBC 22.1 wbc improved to 24: likely 2nd to underlying malignancy vanc/cefepime day 4 Qualifiers: Sepsis type: sepsis due to unspecified organism Qualified Code(s): A41.9 - Sepsis, unspecified organism (3) Primary lung malignancy of unknown cell type Current Visit: Yes Status: Acute CT chest shows left lobe mass , mediastinal adenopathy and diffuse liver metastases s/p liver biopsy. Results:-Metastatic nonsmall cell carcinoma consistent with pulmonary adenocarcinoma. STAGE IV plan is to follow up outpatient with oncology Qualifiers: Laterality: left Qualified Code(s): C34.92 - Malignant neoplasm of unspecified part of left bronchus or lung (4) COPD exacerbation Current Visit: Yes Status: Acute 2nd to penumonia with underling adenocarcinoma lung On 2L O2 at home continue bronchodialators, steroids, and antibiotics, O2. worsening sob now on 3L O2 cxr tomorrow (5) History of pulmonary embolism Current Visit: Yes Status: Chronic CTA negative for PE (6) DVT prophylaxis Current Visit: Yes Status: Acute continue lovenox (7) KAVITHA (obstructive sleep apnea) Current Visit: Yes Status: Acute hx of KAVITHA on CPAP at home. Patient is tolerating BiPAP better at night. States he sleeps well and respiratory status is improved. Continue BiPAP, home BiPAP setup Subjective Principal diagnosis: Acute on chronic respiratory failure Interval history: Patient appears more short of breath this morning. He is using his accessory muscles to breathe. He states "he feels fine". He denies chest pain, abdominal pain, nausea. Objective PUL Vital signs: Last Vital Signs Temp 98.4 F 09/23/16 07:00 Pulse 113 09/23/16 07:00 Resp 22 09/23/16 07:00 BP 147/93 09/23/16 07:00 Pulse Ox 90 09/23/16 07:00 General appearance: appears uncomfortable Effort: mildly labored Auscultation: bilateral: clear Cardiovascular: regular rate and rhythm Gastrointestinal: normoactive bowel sounds, non-distended Integumentary: normal Extremities: no cyanosis, no clubbing, edema (1+) mood appropriate, affect normal Results - Laboratory Findings CBC and BMP: 09/23/16 05:06 09/22/16 01:37 Abnormal lab findings: Abnormal lab results WBC 24.3 K/mcL (4.3-11.1) H 09/23/16 05:06 Hgb 10.4 g/dL (12.9-16.9) L 09/23/16 05:06 Hct 33.6 % (37.5-50.1) L 09/23/16 05:06 MCV 73.7 fL (83.0-100.0) L 09/23/16 05:06 MCH 22.8 pg (28.0-33.3) L 09/23/16 05:06 MCHC 31.0 g/dL (31.6-35.5) L 09/23/16 05:06 RDW 18.7 % (11.5-14.5) H 09/23/16 05:06 Plt Count 537 K/mcL (140-400) H 09/23/16 05:06 Neutrophils # 20.0 K/mcL (1.6-8.9) H 09/23/16 05:06 Monocytes # 2.0 K/mcL (0.0-1.3) H 09/23/16 05:06 Nucleated RBCs/100 WBC 0.1 /100 WBC (0) H 09/23/16 05:06 Platelet Estimate Increased (Normal) H 09/22/16 01:37 Anisocytosis 1+ (Not Present) A 09/22/16 01:37 Carbon Dioxide 32 mEq/L (19-29) H 09/22/16 01:37 Creatinine 0.69 mg/dL (0.72-1.25) L 09/22/16 01:37 BUN/Creatinine Ratio 32 (6-26) H 09/22/16 01:37 Glucose 142 mg/dL (70-99) H 09/22/16 01:37 POC Glucose 121 (58-89) H 09/22/16 12:19 - Microbiology Findings Microbiology Findings: Microbiology, Last 48 Hours 09/20/16 08:59 Blood Culture - Preliminary Peripheral Venipuncture No growth. 09/21/16 11:10 Sputum Culture - Final Sputum - Clinical Findings Intake & Output: Intake & Output 09/22/16 09/23/16 09/23/16 23:59 07:59 15:59 Intake Total 600 / 600 380 / 380 0 / 0 Output Total 1400 / 1400 500 / 500 Balance -800 / -800 380 / 380 -500 / -500 Weight 81.2 kg Consult Discharge Plan - Plan Referrals: Dorys Abraham, COMPOSITION BOARD PRESS OPERATOR [Primary Care Provider] - 10/06/16 2:00 pm (NEW PATIENT VISIT) <Augustine James - Last Filed: 09/23/16 12:52> Date of Encounter: 09/23/16 Objective PUL Vital signs: Last Vital Signs Temp 98.5 F 09/23/16 11:43 Pulse 111 09/23/16 11:43 Resp 22 09/23/16 11:43 BP 134/85 09/23/16 11:43 Pulse Ox 92 09/23/16 11:43 Results - Laboratory Findings CBC and BMP: 09/23/16 05:06 09/22/16 01:37 Abnormal lab findings: Abnormal lab results WBC 24.3 K/mcL (4.3-11.1) H 09/23/16 05:06 Hgb 10.4 g/dL (12.9-16.9) L 09/23/16 05:06 Hct 33.6 % (37.5-50.1) L 09/23/16 05:06 MCV 73.7 fL (83.0-100.0) L 09/23/16 05:06 MCH 22.8 pg (28.0-33.3) L 09/23/16 05:06 MCHC 31.0 g/dL (31.6-35.5) L 09/23/16 05:06 RDW 18.7 % (11.5-14.5) H 09/23/16 05:06 Plt Count 537 K/mcL (140-400) H 09/23/16 05:06 Neutrophils # 20.0 K/mcL (1.6-8.9) H 09/23/16 05:06 Monocytes # 2.0 K/mcL (0.0-1.3) H 09/23/16 05:06 Nucleated RBCs/100 WBC 0.1 /100 WBC (0) H 09/23/16 05:06 Platelet Estimate Increased (Normal) H 09/22/16 01:37 Anisocytosis 1+ (Not Present) A 09/22/16 01:37 Carbon Dioxide 32 mEq/L (19-29) H 09/22/16 01:37 Creatinine 0.69 mg/dL (0.72-1.25) L 09/22/16 01:37 BUN/Creatinine Ratio 32 (6-26) H 09/22/16 01:37 Glucose 142 mg/dL (70-99) H 09/22/16 01:37 POC Glucose 121 (58-89) H 09/22/16 12:19 - Microbiology Findings Microbiology Findings: Microbiology, Last 48 Hours 09/20/16 08:59 Blood Culture - Preliminary Peripheral Venipuncture No growth. 09/21/16 11:10 Sputum Culture - Final Sputum - Clinical Findings Intake & Output: Intake & Output 09/22/16 09/23/16 09/23/16 23:59 07:59 15:59 Intake Total 600 / 600 380 / 380 0 / 0 Output Total 1400 / 1400 850 / 850 Balance -800 / -800 380 / 380 -850 / -850 Weight 81.2 kg 80.3 kg - Attending Attestation I examined this patient and my medical decision-making was reviewed with the MASTER CONTROL SUPERVISOR/PA/Advanced Practice Nurse/Resident Physician. I agree with the documented findings, disposition and treatment plan as described except to the extent set forth below. Patient seen and examined. Labs, radiology, chart personally reviewed. Agree with resident's history and physical, assessment, plan with following comments: BOX PACKER: Patient follows commands, Pulmonary: Acceptable oxygenation and ventilation. Patient feels slightly better and tolerating BiPAP much better using BiPAP. Patient to be send to sleep lab for titration from cpap to bipap when he is discharged and then follow up with oncology. Will continue follow up as needed.
--- NOTE | 2016-09-23 12:21 | Internal Med Progress Note ---
Date of Encounter: 09/23/16 Time of Encounter: 12:21 - Assessment and plan (1) COPD exacerbation Current Visit: Yes Status: Acute (2) CAD (coronary artery disease) Current Visit: Yes Status: Chronic Qualifiers: Coronary Disease-Associated Artery/Lesion type: unspecified vessel or lesion type [place] vs. transplanted heart: [place] heart Associated angina: angina presence unspecified Qualified Code(s): I25.10 - Atherosclerotic heart disease of [place] coronary artery without angina pectoris (3) Hypertension Current Visit: Yes Status: Chronic Qualifiers: Hypertension type: essential hypertension Qualified Code(s): I10 - Essential (primary) hypertension (4) Respiratory failure Current Visit: Yes Status: Acute Qualifiers: Chronicity: acute on chronic Respiratory failure complication: hypoxia Qualified Code(s): J96.21 - Acute and chronic respiratory failure with hypoxia (5) Anemia Current Visit: Yes Status: Chronic Qualifiers: Anemia type: other cause Other causes of anemia: other cause, not classified Qualified Code(s): D64.89 - Other specified anemias - Subjective Interval history: 56 M with Hx of COPD on home O2, KAVITHA, admitted and being managed for acute on chronic respiratory falure secondary to pneumonia Seen at bedside Denies new complains - Constitutional Vitals: Temp Pulse Resp BP Pulse Ox 98.5 F 111 22 134/85 92 09/23/16 11:43 09/23/16 11:43 09/23/16 11:43 09/23/16 11:43 09/23/16 11:43 General appearance: Present: A&O X 3, pleasant, no acute distress Internal Medicine: Result - Labs CBC & Chem 7: 09/23/16 05:06 09/22/16 01:37 Labs: Short CBC 09/23/16 Range/Units 05:06 WBC 24.3 H (4.3-11.1) K/mcL Hgb 10.4 L (12.9-16.9) g/dL Hct 33.6 L (37.5-50.1) % Plt Count 537 H (140-400) K/mcL Neutrophils # 20.0 H (1.6-8.9) K/mcL Consult Discharge Plan - Plan Referrals: Dorys Abraham, ANIMAL BEHAVIORIST [Primary Care Provider] - 10/06/16 2:00 pm (NEW PATIENT VISIT)
--- NOTE | 2016-09-23 14:38 | Discharge Summary ---
Date of Encounter: 09/23/16 Time of Encounter: 14:38 - Discharge Diagnosis (1) COPD exacerbation Priority: Primary Status: Acute (2) CAD (coronary artery disease) Priority: Secondary Status: Chronic Qualifiers: Coronary Disease-Associated Artery/Lesion type: unspecified vessel or lesion type [place] vs. transplanted heart: [place] heart Associated angina: angina presence unspecified Qualified Code(s): I25.10 - Atherosclerotic heart disease of [place] coronary artery without angina pectoris (3) Hypertension Priority: Secondary Status: Chronic Qualifiers: Hypertension type: essential hypertension Qualified Code(s): I10 - Essential (primary) hypertension (4) Respiratory failure Priority: Primary Status: Acute Qualifiers: Chronicity: acute on chronic Respiratory failure complication: hypoxia Qualified Code(s): J96.21 - Acute and chronic respiratory failure with hypoxia (5) Anemia Priority: Secondary Status: Chronic Qualifiers: Anemia type: other cause Other causes of anemia: other cause, not classified Qualified Code(s): D64.89 - Other specified anemias - Discharge Medications Prescriptions: Citalopram [CeleXA] 10 mg PO DAILY #30 tablet Levofloxacin [Levaquin] 750 mg PO DAILY #4 tablet Metoprolol XL (24 HR) Succ [Toprol Xl] 50 mg PO DAILY #30 tab.er.24h predniSONE [PredniSONE] See Taper PO DAILY #20 tablet Home Medications: Albuterol Sulfate [Proair Hfa] 2 puff IH Q6H PRN 09/13/16 [History] Aspirin [Lo-Dose Aspirin EC] 243 mg PO DAILY 09/13/16 [History] Atorvastatin Calcium [Lipitor] 80 mg PO DAILY 09/13/16 [History] Clopidogrel [Plavix] 75 mg PO DAILY 09/13/16 [History] Lisinopril [Zestril] 10 mg PO DAILY 09/13/16 [History] Albuterol Neb [Proventil Neb] 2.5 mg IH Q2H PRN 30 Days 09/17/16 [Rx] Ferrous Sulfate 325 mg PO BIDWM 30 Days 09/17/16 [Rx] OxyCODONE/APAP 7.5/325 [Percocet 7.5/325 MG] 1 each PO Q6HR PRN #60 tablet 09/17 [Rx] Oxygen 1 each .ROUTE AD 09/20/16 [History] Umeclidinium Brm/Vilanterol Tr [Anoro Ellipta 62.5-25 Mcg INH] 1 puff IH DAILY 09/20/16 [History] Citalopram [CeleXA] 10 mg PO DAILY #30 tablet 09/23/16 [Rx] Levofloxacin [Levaquin] 750 mg PO DAILY #4 tablet 09/23/16 [Rx] Metoprolol XL (24 HR) Succ [Toprol Xl] 50 mg PO DAILY #30 tab.er.24h 09/23/16 [ Rx] predniSONE [PredniSONE] See Taper PO DAILY #20 tablet 09/23/16 [Rx] Allergies/Adverse Reactions: Allergies No Known Allergies Allergy (Verified 06/06/15 14:44) Date of admission: 09/20/16 03:31 Primary care physician: Dorys Abraham CNP Consults: 09/20/16 03:51 Consult to Oncology [CONS] Routine Consulting Provider: On[facility] Reason for Consult: Respiratory failure, possible lymphangitic spread of tumor Call Completed: No Consult to Pulmonology [CONS] Routine Consulting Provider: [facility] Reason for Consult: Respiratory failure, possible lymphangitic spread of tumor Call Completed: No 09/20/16 03:52 Consult to Nurse Navigator [CONS] Routine Comment: Discharging clinician: Mau Mackey Anticipated date of discharge: 09/23/16 - Patient Status Disposition: Home, Self-Care Condition: Fair Functional capacity at discharge: uses cane/walker - Discharge Instructions Follow Up With: Dorys Abraham CNP [Primary Care Provider] - 10/06/16 2:00 pm (NEW PATIENT VISIT) - Diet and Activity Activity: wear oxygen at all times Diet: low fat, low cholesterol, low salt diet Interval History: See below Hospital course: Mr. Hernandez is a 56 year old male with history of Metastatic Lung CA, COPD on home O2, KAVITHA on Home CPAP, Patient was admitted and managed for acute on chronic respiratory failure secondary to COPDE, Pneumonia, Advanced lung CA. He had recently been in the hospital and with newly found airspace disease this could represent a hospital-acquired pneumonia causing COPD exacerbation. CTA shows right lower lobe infiltrates, Pulmonary embolism was ruled out. CT chest shows left lobe mass , mediastinal adenopathy and diffuse liver metastases s/p liver biopsy. Patient was started on broad spectrum antbiotics for HCAP, Pulmonomogy was consulted Patient remained BiPAP dependent through hospital stay He was also noted to have panic attacks and required medication for this His sputum culture has been finalized and yielded no growth, his blood cultures have yielded no growth He received 3 days of IV Vanco, Azithromycin and Cefepime. This was de- escalated to Levaqun which he received for one day prior to discharge Oncology reviewed patient and notified him of his Stage IV Lung CA with liver metastasis diagnosis Patient is seen and evaluated at bedside today with his spouse and daughter Pulmonologust has made arrangement for patient to have BIPAP at home after discharge Patient is clinically stable to be discharged home with family , He will receive 4 more days of levaquin at home as well as prednisone taper, and to continue his inhalers at home His chronic anemia and CAD/HTN was stable. Follow up with PCP/Oncology/Pulmonology Plan of care discussed , verbalized understanding - Time Spent with Patient Total time spent providing and/or coordinating discharge services: Greater than 30 minutes (45 minutes spent on chart review, discussion with patient and pulmonolgy, patient education, medication reconciliation and prescription and documentation) - Constitutional Vitals: Temp Pulse Resp BP Pulse Ox 97.8 F 98 18 132/83 91 09/23/16 14:00 09/23/16 14:00 09/23/16 14:00 09/23/16 14:00 09/23/16 14:00 General appearance: Present: A&O X 3, pleasant, no acute distress - Head Head exam: Present: atraumatic, normocephalic - Eye Eye exam: Present: PERRL, conjuntiva pink, sclera anicteric Pupils: Present: PERRL - Neck Neck exam general surgery: Present: supple, trachea midline. Absent: lymphadenopathy - Respiratory Respiratory exam: Present: CTAB. Absent: accessory muscle use, rales, rhonchi, wheezes - Cardiovascular Cardiovascular exam: Present: RRR, +S1, +S2. Absent: diastolic murmur, gallop, rubs, systolic murmur - GI/Abdominal GI/Abdominal exam: Present: normal bowel sounds, soft, no peritoneal signs. Absent: distended, tenderness - Extremities Exam Extremities exam: Present: warm, radial pulses palpable and symetrical. 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 Absent: pronater drift, facial droop, speech deficit - Skin Skin exam: Present: dry, intact
[2016-09-23] MEDS: LEVOFLOXACIN 750 MG/150 ML IVPB SCH (18:19)
[2016-09-23 20:14] VITALS: BP 185/111
== END 2016-09-23 20:32 | disposition home or self-care (01) | DRG 871 ==
LOC: EMEROO 02:18 → SUATTDRO 03:31 → 2NNU 03:31
PROVIDERS: ADMIT Internal Medicine Sleep Medicine; ATTEND Internal Medicine

== ENCOUNTER 2016-10-13 01:21 | Inpatient (IN) ==
[2016-10-13] MEDS ORDERED: Ipratropium/Albuterol Neb 3 ML IH ONE (01:30)
[2016-10-13] MEDS ORDERED: predniSONE 20 MG TABLET PO ONE (01:30)
--- NOTE | 2016-10-13 01:48 | Emergency Department Note ---
START Narrative - START START: I examined this patient and my medical decision-making was reviewed with the RN CARDIOVASCULAR/PA/Advanced Practice Nurse/Resident Physician. I agree with the documented findings, disposition and treatment plan as described except to the extent set forth below. ED attending note: Patient seen with emergency medicine resident . Please see a copy of his note for details of the H&P, evaluation, management and disposition of this patient. We independently had [id number] contact with the patient Briefly: 56 year old male history of recently diagnosed lung cancer and COPD. Increasing shortness of breath over the past month worse over the past week. Satting 85% on room air with mild to moderate respiratory distress into sentence dyspnea. Patient had some decreased breath sounds in expiratory wheezes and prolonged expiration. We will get to neb treatment IV labs please in the differential as well as pneumonia COPD flare among others. Providing 45 minutes of critical care service this patient, admission and anticipated, disposition pending
[2016-10-13 02:02] LABS: Basophils % 0.4 %; Mean Platelet Volume 9.4 fL (9.4-12.4)
[2016-10-13 02:04] LABS: Basophils # 0.1 K/mcL (0.0-0.2); Eosinophils # 0.6 K/mcL (0.0-0.6); Eosinophils % 2.2 %; Hematocrit 44.2 % (37.5-50.1); Hemoglobin 13.5 g/dL (12.9-16.9); Immature Platelets 3.7 % (1.1-6.1); Lymphocytes % 2.9 %; Mean Corpuscular HGB Conc 30.5 g/dL (31.6-35.5); Mean Corpuscular Hemoglobin 22.7 pg (28.0-33.3); Mean Corpuscular Volume 74.4 fL (83.0-100.0); Monocytes # 2.6 K/mcL (0.0-1.3); Neutrophils # 23.8 K/mcL (1.6-8.9); Platelet Count 639 K/mcL (140-400); Red Blood Count 5.94 M/mcL (4.19-5.50); Red Cell Distribution Width 20.6 % (11.5-14.5); Segmented Neutrophils % 82.5 %
[2016-10-13 02:05] LABS: Lymphocytes # 0.8 K/mcL (0.6-4.6)
[2016-10-13 02:15] LABS: BUN/Creatinine Ratio 30 (6-26); Blood Urea Nitrogen 29 mg/dL (8-26); Calcium 9.8 mg/dL (8.6-10.8); Carbon Dioxide 30 mEq/L (19-29); Chloride 92 mEq/L (98-109); Glucose 112 mg/dL (70-99); Osmolality,Calculated 285 (280-300); Potassium 5.1 mEq/L (3.5-4.5); Sodium 134 mEq/L (136-145); eGFR For African Americans > 60 (> 60); eGFR For Non-African Americans > 60 (> 60)
[2016-10-13 02:19] LABS: Platelet Estimate Marked Increase (Normal); Reactive Lymphocytes Present (Not Present); Smudge Cells Present (Not Present)
--- NOTE | 2016-10-13 02:19 | Emergency Department Note ---
Disposition Clinical Impression: Acute exacerbation of chronic obstructive airways disease, Acute and chronic respiratory failure, Metastatic lung cancer (metastasis from lung to other site) , Pneumonia, Pleural effusion Disposition: Admitted As Inpatient Condition: Fair Referrals: NO,PCP [Non-Partnered Physician] - Forms: ED Satisfaction Letter Time of Disposition: 03:39 SOB HPI - General Chief Complaint: ED Shortness of Breath/Dyspnea Stated Complaint: lucy copd Time Seen by Provider: 10/13/16 01:30 Source: patient, family Mode of arrival: wheelchair Limitations: no limitations Nursing Notes Reviewed: Yes Vital Signs Reviewed: Yes - History of Present Illness Patient presents to the ED via wheelchair with the chief complaint of shortness of breath. Patient and family state that approximately 1 month ago he was diagnosed with lung cancer. He states that for the preceding 2 months. He began experiencing fatigue, decreased appetite, generalized abdominal pain and gradually increasing shortness of breath. Over the last month. The symptoms have continued to worsen. He reports multiple admissions. States that his work of breathing has continued to increase despite being on oxygen at home. He has had a very thick green and yellow productive cough, which has continued to worsen. No fevers, but he has not been eating or drinking. The is concerned because he has not urinated since yesterday and has not had anything to eat or drink in almost 24 hours. He denies any chest pain. He does complain of dyspnea at rest, which is gradually worsening. Also complains of abdominal distention and right-sided pain. States the pain is dull and achy, but is relatively constant. Nonradiating. Nothing seems to make it better or worse. He states that he just feels terrible. - Related Data Home Medications Medication Instructions Recorded Confirmed Albuterol Sulfate [Proair Hfa] 2 puff IH Q6H PRN 09/13/16 10/01/16 Aspirin [Lo-Dose Aspirin EC] 243 mg PO DAILY 09/13/16 10/01/16 Atorvastatin Calcium [Lipitor] 80 mg PO DAILY 09/13/16 10/01/16 Clopidogrel [Plavix] 75 mg PO DAILY 09/13/16 10/01/16 Lisinopril [Zestril] 10 mg PO DAILY 09/13/16 10/01/16 Oxygen 1 each .ROUTE AD 09/20/16 10/01/16 Umeclidinium Brm/Vilanterol Tr 1 puff IH DAILY 09/20/16 10/01/16 [Anoro Ellipta 62.5-25 Mcg INH] Previous Rx's Medication Instructions Recorded Albuterol Neb [Proventil Neb] 2.5 mg IH Q2H PRN 30 Days 09/17/16 Ferrous Sulfate 325 mg PO BIDWM 30 Days 09/17/16 OxyCODONE/APAP 7.5/325 [Percocet 1 each PO Q6HR PRN #60 tablet 09/17/16 7.5/325 MG] Citalopram [CeleXA] 10 mg PO DAILY #30 tablet 09/23/16 Metoprolol XL (24 HR) Succ [Toprol 50 mg PO DAILY #30 tab.er.24h 09/23/16 Xl] predniSONE [PredniSONE] See Taper PO DAILY #20 tablet 09/23/16 Furosemide [Lasix] 20 mg PO DAILY #10 tablet 09/28/16 Folic Acid 1 mg PO DAILY #90 tablet 10/01/16 Allergies Allergy/AdvReac Type Severity Reaction Status Date / Time No Known Allergies Allergy Verified 10/01/16 15:10 Constitutional: Denies: fever Cardiovascular: Denies: chest pain Respiratory: Reports: cough, dyspnea Gastrointestinal: Reports: abdominal pain, nausea. Denies: vomiting Integumentary: Denies: rash Past Medical History - Past Medical History Attestation: Yes The following information was validated with the patient. Source: patient, old records reviewed Medical history: Reports: cancer, COPD, coronary artery disease, hyperlipidemia , hypertension, myocardial infarction, other Surgical history: Reports: other Psychiatric history: Reports: anxiety - Social History Smoking Status: Former smoker Smokeless Tobacco Status: No Alcohol use: Reports: occasionally Drug use: Reports: marijuana Physical Exam - General Limitations: no limitations General appearance: alert, in no apparent distress, other (Patient appears uncomfortable, mild to moderate respiratory distress, diaphoretic) - Head Head exam: atraumatic, normocephalic, normal inspection - Eye Eye exam: Present: normal appearance, PERRL, EOMI - ENT ENT exam: normal exam, normal oropharynx, mucous membranes moist - Neck Neck exam: Present: normal inspection, full ROM, trachea midline - Chest Chest inspection: Present: normal inspection, symmetric chest wall rise - Respiratory Respiratory exam: Present: respiratory distress (Mild to moderate), wheezes ( Diffusely with rhonchi in left lower lobe and wheezes throughout). Absent: normal lung sounds bilaterally - Cardiovascular Cardiovascular exam: Present: tachycardia, normal heart sounds - Abdominal Exam Abdominal exam: Present: soft, tenderness, distention, hyperactive bowel sounds , ascites. Absent: guarding, rebound, rigidity, trauma, tenderness at McBurney' s Point Abdominal tenderness: Present: RUQ, RLQ, mild, moderate - Extremities Exam Extremities exam: Present: normal inspection, full ROM, other (Right above the ankle amputation). Absent: tenderness, pedal edema, calf tenderness - Neurological Exam Neurological exam: Present: alert, oriented X3 - Psychiatric Psychiatric exam: Present: depressed, flat affect - Skin Skin exam: Present: warm, intact, normal color. Absent: rash Course Course Narrative: 56 -year-old male with recently diagnosed lung cancer. Has not yet started radiation and chemotherapy presenting with gradually increasing shortness of breath. Patient's in [id number] respiratory distress and is diaphoretic. We will obtain labs, chest x-ray, give breathing treatment due to the wheezing. Patient will definitely need to be admitted. Final disposition pending. - Reevaluation(s) Reevaluation #1: Patient doing very well on BiPAP. He is no longer diaphoretic. Lungs are still coarse bilaterally. Does have a large left-sided pleural effusion, which is likely malignant. Concern over pneumonia. Due to recent hospitalization. We will treat for hospital-acquired pneumonia with Vanc Zosyn and Levaquin. We will admit to the hospitalist service for further management. Patient has not been hypotensive and his lactate is not greater than 4 so he did not receive a 30 mL/kg fluid bolus. Vital Signs Temperature 97.5 F L 10/13/16 01:25 Pulse Rate 123 10/13/16 01:25 Respiratory Rate 28 10/13/16 01:25 Blood Pressure 169/78 10/13/16 01:25 O2 Sat by Pulse Oximetry 81 10/13/16 01:25 Temperature 97.5 F L 10/13/16 01:25 Pulse Rate 123 10/13/16 01:25 Respiratory Rate 28 10/13/16 01:47 Blood Pressure 169/78 10/13/16 01:25 O2 Sat by Pulse Oximetry 87 10/13/16 01:47 Oxygen Delivery Oxygen Delivery Nasal Cannula Shortness of Breath/Dyspnea - Medical Records Medical records reviewed: Yes I reviewed the patient's medical records. - Lab Data Lab results reviewed: Yes I reviewed the patient's lab results. Result diagrams: 10/13/16 01:55 10/13/16 01:55 Lab Results 10/13/16 10/13/16 10/13/16 Range/Units 01:55 01:55 01:55 WBC 28.9 H (4.3-11.1) K/mcL RBC 5.94 H (4.19-5.50) M/mcL Hgb 13.5 (12.9-16.9) g/dL Hct 44.2 (37.5-50.1) % MCV 74.4 L (83.0-100.0) fL MCH 22.7 L (28.0-33.3) pg MCHC 30.5 L (31.6-35.5) g/dL RDW 20.6 H (11.5-14.5) % Plt Count 639 H (140-400) K/mcL MPV 9.4 (9.4-12.4) fL Immature Gran % 3.0 (0-4) % Seg Neutrophils % 82.5 % Lymphocytes % 2.9 % Monocytes % 9.0 % Eosinophils % 2.2 % Basophils % 0.4 % Neutrophils # 23.8 H (1.6-8.9) K/mcL Lymphocytes # 0.8 (0.6-4.6) K/mcL Monocytes # 2.6 H (0.0-1.3) K/mcL Eosinophils # 0.6 (0.0-0.6) K/mcL Basophils # 0.1 (0.0-0.2) K/mcL Reactive Lymphocytes Present A (Not Present) Smudge Cells Present A (Not Present) Platelet Estimate Marked Increase H (Normal) Immature Plt Fraction 3.7 (1.1-6.1) % D-Dimer (0-500) ng/mLFEU Sodium 134 L (136-145) mEq/L Potassium 5.1 H (3.5-4.5) mEq/L Chloride 92 L (98-109) mEq/L Carbon Dioxide 30 H (19-29) mEq/L BUN 29 H (8-26) mg/dL Creatinine 0.96 (0.72-1.25) mg/dL Est GFR ( Amer) > 60 (> 60) Est GFR (Non-Af Amer) > 60 (> 60) BUN/Creatinine Ratio 30 H (6-26) Glucose 112 H (70-99) mg/dL Calculated Osmolality 285 (280-300) Lactic Acid 2.5 H (0.5-2.2) mmol/L Calcium 9.8 (8.6-10.8) mg/dL Troponin I (0-0.03) ng/mL B-Natriuretic Peptide (0-100) pg/mL 10/13/16 10/13/16 10/13/16 Range/Units 01:55 01:55 01:55 WBC (4.3-11.1) K/mcL RBC (4.19-5.50) M/mcL Hgb (12.9-16.9) g/dL Hct (37.5-50.1) % MCV (83.0-100.0) fL MCH (28.0-33.3) pg MCHC (31.6-35.5) g/dL RDW (11.5-14.5) % Plt Count (140-400) K/mcL MPV (9.4-12.4) fL Immature Gran % (0-4) % Seg Neutrophils % % Lymphocytes % % Monocytes % % Eosinophils % % Basophils % % Neutrophils # (1.6-8.9) K/mcL Lymphocytes # (0.6-4.6) K/mcL Monocytes # (0.0-1.3) K/mcL Eosinophils # (0.0-0.6) K/mcL Basophils # (0.0-0.2) K/mcL Reactive Lymphocytes (Not Present) Smudge Cells (Not Present) Platelet Estimate (Normal) Immature Plt Fraction (1.1-6.1) % D-Dimer 7167 H (0-500) ng/mLFEU Sodium (136-145) mEq/L Potassium (3.5-4.5) mEq/L Chloride (98-109) mEq/L Carbon Dioxide (19-29) mEq/L BUN (8-26) mg/dL Creatinine (0.72-1.25) mg/dL Est GFR ( Amer) (> 60) Est GFR (Non-Af Amer) (> 60) BUN/Creatinine Ratio (6-26) Glucose (70-99) mg/dL Calculated Osmolality (280-300) Lactic Acid (0.5-2.2) mmol/L Calcium (8.6-10.8) mg/dL Troponin I 0.02 (0-0.03) ng/mL B-Natriuretic Peptide 52 (0-100) pg/mL - Radiology Data Radiology results reviewed: Yes I reviewed the patient's radiology results. - EKG Data EKG attestation: Yes I reviewed and interpreted this EKG. EKG results narrative: Sinus tachycardia, rate 123, HI interval 88, QRS 91, QTC 367, normal axis, no acute ischemic changes as compared to previous. On 09/20/2016. S.BDes[place] - [place].Comfort Situation: Demographics, MOA Background: Presenting Complaint, Relevant PMH, Meds, & Allergies Assessment: Vital Signs, Course and respsone to treatment, Exam Concerns, Patient/Family Expectation, Pertinant Lab Results, Outstanding Labs Recommendation: Barrier(s) to disposition, Recommendation based on pending studies, treatments, or consults S.B.AEli Report Given to: Dr. Joy Leung Repor Time: 04:00
[2016-10-13] MEDS ORDERED: 0.9 % Sodium Chloride 1,000 ML IVC ONE ×2 (02:24→05:08)
[2016-10-13] MEDS ORDERED: Piperacillin/Tazobactam 4.5 GM in D5% in Water (Mini-Bag+) 100 ML IVPB ONE (03:39)
[2016-10-13] MEDS ORDERED: Vancomycin 1,000 MG in D5% in Water 250 ML IVPB ONE (03:39)
[2016-10-13] MEDS ORDERED: Levofloxacin 750 MG/150 ML 750 MG/150 ML BAG IVPB ONE (03:39)
[2016-10-13 04:18] LABS: Alanine Aminotransferase 56 Units/L (0-55); Albumin/Globulin Ratio 0.2 (1.1-2.2); Alkaline Phosphatase 1523 Units/L (38-126); Aspartate Amino Transferase 104 Units/L (5-34); Bilirubin,Direct 0.7 mg/dL (0.0-0.5); Bilirubin,Indirect 0.2 mg/dL (0.0-1.2); Bilirubin,Total 0.9 mg/dL (0.2-1.2); Globulin 6.5 g/dL (2.4-3.5); Lipase 110 Units/L (8-78); Total Protein 8.1 g/dL (6.0-8.3)
[2016-10-13 04:31] LABS: Albumin 1.6 g/dL (3.5-5.0)
[2016-10-13] MEDS ORDERED: Naloxone 0.4 MG/ML INJ IVP PRN (05:01)
[2016-10-13] MEDS ORDERED: Ondansetron 4 MG/2 ML VIAL IVP PRN (05:01)
[2016-10-13] MEDS ORDERED: Acetaminophen 325 MG TABLET PO PRN (05:01)
[2016-10-13] MEDS ORDERED: 0.9 % Sodium Chloride 500 ML IVC ONE (05:08)
--- NOTE | 2016-10-13 05:26 | Internal Med History&Physical ---
Date of Encounter: 10/13/16 Time of Encounter: 05:23 Assessment and Plan (1) Acute and chronic respiratory failure Current visit: Yes Status: Acute Secondary to pneumonia and pleural effusion in the setting of lung cancer. Patient is currently stable on BiPAP. Patient has adequate oxygenation and no signs of hypercapnia. We will continue BiPAP as tolerated and will attempt to wean to nasal cannula. We will consult pulmonology for further evaluation. Qualifiers: Respiratory failure complication: hypoxia Qualified Code(s): J96.21 - Acute and chronic respiratory failure with hypoxia (2) Severe sepsis Current visit: Yes Status: Acute Patient presents with leukocytosis, tachycardia with presumed source to be pneumonia and a lactate of 2.4. 1 L bolus was given in the emergency department , will give another 1.5 L bolus which would equal 30 mL/kg per sepsis protocol. Recheck lactate. Blood cultures were not drawn in the emergency department, these have been ordered. (3) Healthcare-associated pneumonia Current visit: Yes Status: Acute Patient presents with shortness of breath and cough with new areas on the CT concerning for pneumonia as well as worsening leukocytosis. Even the patient's underlying malignancy and recent admission to the hospital we will treat with broad-spectrum antibiotics including vancomycin, Levaquin, Zosyn. Sputum cultures been ordered, strep and Legionella antigen has also been ordered. (4) COPD exacerbation Current visit: No Status: Acute Likely related to pneumonia in the setting of underlying lung cancer. Continue antibiotics as above, IV steroids with Solu-Medrol 60 mg every 6 hours, scheduled bronchodilators. (5) Pleural effusion Current visit: Yes Status: Acute Likely either infectious or malignant, malignant effusion appears most likely at this time. Patient will likely benefit from thoracentesis both symptomatically and diagnostically. We will discuss with the day team. 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 Worsening of his lung cancer is likely contributing the patient's symptoms. Patient is still deciding whether to undergo chemotherapy. Patient wishes to remain a full code. Qualifiers: Laterality: unspecified laterality Qualified Code(s): C34.90 - Malignant neoplasm of unspecified part of unspecified bronchus or lung (7) Hypertension Current visit: No Status: Chronic Blood pressure normal at this time. Given concern for severe sepsis as discussed above will hold home antihypertensives. Continue monitor blood pressure and if blood pressure rises home BP meds can be restarted. Qualifiers: Hypertension type: essential hypertension Qualified Code(s): I10 - Essential (primary) hypertension (8) DVT prophylaxis Current visit: No Status: Acute Lovenox 40 mg subcutaneous daily Internal Medicine - H&P: HPI Chief complaint: Dyspnea Admitted From: Emergency Dept Plans for Post Hospital Care: Home History of present illness: Mr. Hernandez is a 56 year old male with history of metastatic colon cancer, coronary artery disease presented with shortness of breath and cough. Patient states that he was recently diagnosed with metastatic lung cancer at the beginning of the month and has been admitted twice since his diagnosis. He was discharged approximately 3 weeks ago with antibiotics and steroids which he completed however over the last several days he has had worsening shortness of breath with a nonproductive cough. He also reports chills but denies fevers. He states he has had pain in his abdomen since his diagnosis but that is gradually worsened. He denies any nausea, vomiting, change in bowel habits, hematemesis, hematochezia, melena, dysuria. Past Med Surg Social Fam HX - Past Medical History Medical history: cancer, COPD, coronary artery disease, hyperlipidemia, hypertension, myocardial infarction, other Psychiatric history: anxiety - Past Surgical History Surgical History: other - Social History Smoking Status: Former smoker Smokeless Tobacco Status: No Alcohol use: occasionally Drug use: marijuana - Family History Mother Family Member Ethnicity: Non- Living Status: Still Living Hx Family Respiratory Disorders: Yes Father Family Member Ethnicity: Non- Living Status: Hx Family Cardiac Disorders: Yes (Brain aneurysm) Sister Family Member Ethnicity: Non- Living Status: Still Living Hx Family Cancer: Yes (Breast) Internal Medicine - H&P: Meds Albuterol Sulfate [Proair Hfa] 2 puff IH Q6H PRN 09/13/16 [History] Aspirin [Lo-Dose Aspirin EC] 243 mg PO DAILY 09/13/16 [History] Atorvastatin Calcium [Lipitor] 80 mg PO DAILY 09/13/16 [History] Clopidogrel [Plavix] 75 mg PO DAILY 09/13/16 [History] Lisinopril [Zestril] 10 mg PO DAILY 09/13/16 [History] Albuterol Neb [Proventil Neb] 2.5 mg IH Q2H PRN 30 Days 09/17/16 [Rx] Ferrous Sulfate 325 mg PO BIDWM 30 Days 09/17/16 [Rx] OxyCODONE/APAP 7.5/325 [Percocet 7.5/325 MG] 1 each PO Q6HR PRN #60 tablet 09/17 [Rx] Oxygen 1 each .ROUTE AD 09/20/16 [History] Umeclidinium Brm/Vilanterol Tr [Anoro Ellipta 62.5-25 Mcg INH] 1 puff IH DAILY 09/20/16 [History] Citalopram [CeleXA] 10 mg PO DAILY #30 tablet 09/23/16 [Rx] Metoprolol XL (24 HR) Succ [Toprol Xl] 50 mg PO DAILY #30 tab.er.24h 09/23/16 [ Rx] predniSONE [PredniSONE] See Taper PO DAILY #20 tablet 09/23/16 [Rx] Furosemide [Lasix] 20 mg PO DAILY #10 tablet 09/28/16 [Rx] Folic Acid 1 mg PO DAILY #90 tablet 10/01/16 [Rx] Allergies No Known Allergies Allergy (Verified 10/01/16 15:10) All Systems PM: A 10-system review of systems was performed and is negative for pertinent findings except as documented above in the HPI. - Constitutional Constitutional: chills, no fever(s) - EENT Eyes: no change in vision Nose, mouth and throat: no sinus pain, no sinus pressure - Cardiovascular Cardiovascular ROS IM: dyspnea, dyspnea on exertion, no chest pain, no edema, no lightheadedness, no palpitations - Respiratory Respiratory: cough, dyspnea, no hemoptysis, no wheezing, no chest congestion, no excessive phlegm production, no change in phlegm color, no pain with cough - Gastrointestinal Gastrointestinal: abdominal pain, no diarrhea, no nausea, no vomiting - Genitourinary Genitourinary ROS male: no dysuria, no hematuria - Musculoskeletal Musculoskeletal ROS IM: no numbness, no tingling - Integumentary Integumentary IM: no erythema, no new lesions - Neurological Neurological ROS: no confusion, no dizziness, no numbness, no tingling - Psychiatric Psychiatric: no panic attacks - Hematologic/Lymphatic Hematologic/Lymphatic: no easy bleeding, no easy bruising - Constitutional Vitals: Temp Pulse Resp BP Pulse Ox 97.5 F L 115 0 0/0 96 10/13/16 01:25 10/13/16 04:24 10/13/16 05:03 10/13/16 05:03 10/13/16 04:24 General appearance: Present: mild distress, A&O X 3, answers questions appropriately - Head Head exam: Present: atraumatic, normal inspection, normocephalic - Eye Eye exam: Present: EOMI, PERRL - ENT ENT exam: Present: mucous membranes dry - Neck Neck exam general surgery: Present: full ROM - Respiratory Respiratory exam: Present: decreased breath sounds (On right), tachypnea. Absent: rales, respiratory distress, rhonchi, wheezes - Cardiovascular Cardiovascular exam: Present: tachycardia (Regular). Absent: gallop, rubs, systolic murmur - GI/Abdominal GI/Abdominal exam: Present: diminished bowel sounds, distended (Mild), soft, tenderness (Diffuse) - Extremities Exam Extremities exam: Present: warm. Absent: pedal edema, tenderness - Neurological Exam Neurological exam: Present: alert, CN II-XII intact, oriented X3, no focal deficits - Skin Skin exam: Present: dry, intact, warm Internal Med - H&P Results - Labs CBC & Chem 7: 10/13/16 01:55 10/13/16 01:55
[2016-10-13] MEDS ORDERED: Vancomycin 1,250 MG in D5% in Water 250 ML IVPB SCH (06:00)
[2016-10-13] MEDS: *HR* HYDROmorphone (PF) 1 MG/ML SYRINGE IVP PRN ×2 (06:12→18:17)
[2016-10-13] MEDS: methylPREDNISolone 125 MG/2 ML VIAL IVP SCH ×3 (06:13→18:18)
--- NOTE | 2016-10-13 06:35 | Pulmonology Consult Note ---
Date of Encounter: 10/13/16 Time of Encounter: 06:34 Assessment and Plan (1) Sepsis Current Visit: No Status: Resolved Patient presenting with SIRS criteria along with modestly elevated lactate. It is unclear if elevated lactate is more consistent with dehydration and liver metastasis or severity of underlying sepsis I favor the former. Patient has received volume resuscitation would repeat lactate to confirm normalization goal volume status would be even this to positive over the course of the day. Antimicrobials have been administered. Patient no longer tachycardic. Mean arterial pressure has been greater than 65 during output has been appropriate Recommend obtaining blood cultures and sputum culture if already not obtained Qualifiers: Sepsis type: sepsis due to unspecified organism Qualified Code(s): A41.9 - Sepsis, unspecified organism (2) Acute and chronic respiratory failure Current Visit: Yes Status: Acute This is multifactorial including worsening lung cancer COPD exacerbation and possible pneumonia and large pleural effusion. Agree with continued positive airway pressure to decrease work of breathing is can likely be discontinued over the course of the day and wean oxygen saturation via nasal cannula to keep sats greater than 88% Incentive spirometry out of bed to chair encouraged as tolerated Qualifiers: Respiratory failure complication: hypoxia Qualified Code(s): J96.21 - Acute and chronic respiratory failure with hypoxia (3) KAVITHA (obstructive sleep apnea) Current Visit: No Status: Acute At home underwent recent BiPAP titration with settings 14/7 this appears to be too high pressure for the patient and it is reasonable to transition to 12/6 with goal 3 L bleed at least as baseline settings this may need to be increased temporarily based upon current respiratory decompensation. (4) Acute exacerbation of chronic obstructive airways disease Current Visit: Yes Status: Acute Agree with scheduled Symbicort continue IV steroids which I suspect he be transitioned to enteral steroids tomorrow continue bronchodilators every 4-6 hours as needed (5) Metastatic lung cancer (metastasis from lung to other site) Current Visit: Yes Status: Acute I had a long discussion with patient about overall prognosis given with appears to be worsening metastatic cancer. He has been hesitant to start therapy but I said that I would encourage him to rediscuss this with oncology as soon as possible and and consider starting given advancement of disease to this and I believe a repeat discussion with oncology is appropriate while inpatient Qualifiers: Laterality: unspecified laterality Qualified Code(s): C34.90 - Malignant neoplasm of unspecified part of unspecified bronchus or lung (6) Pneumonia Current Visit: Yes Status: Acute I believe this is an equivocal diagnosis of pneumonia although there are some new lung changes its hard to determine if this is secondary to advanced cancer or infection clinically he certainly appears that he could have pneumonia and it is reasonable to start empiric antimicrobials currently on Zosyn and vancomycin which I feel can be D escalated to respiratory flouroquinolone or augmentin over the next 24 hours of cultures negative to complete 5-7 days based upon clinical course. Qualifiers: Pneumonia type: due to unspecified organism Laterality: unspecified laterality Lung location: unspecified part of lung Qualified Code(s): J18.9 - Pneumonia, unspecified organism (7) Pleural effusion Current Visit: Yes Status: Acute (8) DVT prophylaxis Current Visit: No Status: Acute Recommend chemical DVT prophylaxis with low molecular weight heparin in the context of malignancy if no other contraindication History of Present Illness Consult date: 10/13/16 Requesting physician: Morgan Gil Reason for consult: pleural effusion Chief complaint: Dyspnea History of present illness: This is a very pleasant 56-year-old gentleman with a history of metastatic non- small cell lung cancer recently diagnosed with a liver biopsy about a month ago. Unfortunately he has had several admissions since that biopsy for respiratory failure on this particular occasion patient presented with worsening shortness of breath, worsening nonproductive cough, anorexia, dehydration and abdominal pain over the previous 2-3 days. He is joined today by his significant other and she helps to fill in details of history. On admission was noted to have increased work of breathing and was placed on bilevel positive airway pressure support to which achieved purposive improving patient comfort. Now is able to speak in full sentences at the time of examination. CT PE was performed which was negative for filling defect but showed worsening bilateral opacities consistent with metastatic cancer possible new pneumonia and large left-sided pleural effusion presumed to be malignant in nature. He had a modestly elevated lactate was started on empiric antimicrobial therapy IV steroids bronchodilators and bilevel positive airway pressure as aforementioned. Today patient says he feels much better than on admission. And thinks that he could be taken off the positive airway pressure. He is recently undergone a BiPAP titration but feels that the mask at home does not fit as well as current mask and pressures are still high (14/7 with 3L O2 bleed at home and here 12/6) He has been in discussion with oncology regarding starting chemotherapy however he has been hesitant to start unfortunately his performance status continues to deteriorate with worsening prostatic cancer Past Med Surg Social Fam HX - Past Medical History Medical history: cancer, COPD, coronary artery disease, hyperlipidemia, hypertension, myocardial infarction, other Psychiatric history: anxiety - Past Surgical History Surgical History: other - Social History Smoking Status: Former smoker Smokeless Tobacco Status: No Alcohol use: occasionally Drug use: marijuana - Family History Mother Family Member Ethnicity: Non- Living Status: Still Living Hx Family Respiratory Disorders: Yes Father Family Member Ethnicity: Non- Living Status: Hx Family Cardiac Disorders: Yes (Brain aneurysm) Sister Family Member Ethnicity: Non- Living Status: Still Living Hx Family Cancer: Yes (Breast) Medications and Allergies Albuterol Sulfate [Proair Hfa] 2 puff IH Q6H PRN 09/13/16 [History] Aspirin [Lo-Dose Aspirin EC] 243 mg PO DAILY 09/13/16 [History] Atorvastatin Calcium [Lipitor] 80 mg PO DAILY 09/13/16 [History] Clopidogrel [Plavix] 75 mg PO DAILY 09/13/16 [History] Lisinopril [Zestril] 10 mg PO DAILY 09/13/16 [History] Albuterol Neb [Proventil Neb] 2.5 mg IH Q2H PRN 30 Days 09/17/16 [Rx] Ferrous Sulfate 325 mg PO BIDWM 30 Days 09/17/16 [Rx] OxyCODONE/APAP 7.5/325 [Percocet 7.5/325 MG] 1 each PO Q6HR PRN #60 tablet 09/17 [Rx] Oxygen 1 each .ROUTE AD 09/20/16 [History] Umeclidinium Brm/Vilanterol Tr [Anoro Ellipta 62.5-25 Mcg INH] 1 puff IH DAILY 09/20/16 [History] Citalopram [CeleXA] 10 mg PO DAILY #30 tablet 09/23/16 [Rx] Metoprolol XL (24 HR) Succ [Toprol Xl] 50 mg PO DAILY #30 tab.er.24h 09/23/16 [ Rx] predniSONE [PredniSONE] See Taper PO DAILY #20 tablet 09/23/16 [Rx] Furosemide [Lasix] 20 mg PO DAILY #10 tablet 09/28/16 [Rx] Folic Acid 1 mg PO DAILY #90 tablet 10/01/16 [Rx] Allergies No Known Allergies Allergy (Verified 10/01/16 15:10) All Systems: A 10-system review of systems was performed and is negative for pertinent findings except as documented above in the HPI. Physical Examination Vital Signs: Vital Signs, Last 4 Hours Temp Pulse Resp BP Pulse Ox 10/13/16 05:25 97.4 F L 125 32 114/83 95 10/13/16 05:03 0 0/0 General appearance: no acute distress Eyes: nonicteric ENT: other (Positive airway pressure mask noted without significant air leak) Neck: supple Effort: mildly labored Auscultation: bilateral: diminished breath sounds (L >> R), wheezes, rhonchi ( scatered over both lung hutson ) Cardiovascular: regular rate and rhythm Gastrointestinal: soft, tender, guarding Integumentary: rash (right knee. ), other (right BKA noted ) normal mental status, non-focal exam mood appropriate Results - Laboratory Findings CBC and BMP: 10/13/16 01:55 10/13/16 01:55 PT/INR, D-dimer D-Dimer 7167 ng/mLFEU (0-500) H 10/13/16 01:55 Abnormal lab findings: Abnormal lab results WBC 28.9 K/mcL (4.3-11.1) H 10/13/16 01:55 RBC 5.94 M/mcL (4.19-5.50) H 10/13/16 01:55 MCV 74.4 fL (83.0-100.0) L 10/13/16 01:55 MCH 22.7 pg (28.0-33.3) L 10/13/16 01:55 MCHC 30.5 g/dL (31.6-35.5) L 10/13/16 01:55 RDW 20.6 % (11.5-14.5) H 10/13/16 01:55 Plt Count 639 K/mcL (140-400) H 10/13/16 01:55 Neutrophils # 23.8 K/mcL (1.6-8.9) H 10/13/16 01:55 Monocytes # 2.6 K/mcL (0.0-1.3) H 10/13/16 01:55 Reactive Lymphocytes Present (Not Present) A 10/13/16 01:55 Smudge Cells Present (Not Present) A 10/13/16 01:55 Platelet Estimate Marked Increase (Normal) H 10/13/16 01:55 D-Dimer 7167 ng/mLFEU (0-500) H 10/13/16 01:55 Sodium 134 mEq/L (136-145) L 10/13/16 01:55 Potassium 5.1 mEq/L (3.5-4.5) H 10/13/16 01:55 Chloride 92 mEq/L (98-109) L 10/13/16 01:55 Carbon Dioxide 30 mEq/L (19-29) H 10/13/16 01:55 BUN 29 mg/dL (8-26) H 10/13/16 01:55 BUN/Creatinine Ratio 30 (6-26) H 10/13/16 01:55 Glucose 112 mg/dL (70-99) H 10/13/16 01:55 Lactic Acid 2.5 mmol/L (0.5-2.2) H 10/13/16 01:55 Direct Bilirubin 0.7 mg/dL (0.0-0.5) H 10/13/16 01:55 AST 104 Units/L (5-34) H 10/13/16 01:55 ALT 56 Units/L (0-55) H 10/13/16 01:55 Alkaline Phosphatase 1523 Units/L (38-126) H 10/13/16 01:55 Albumin 1.6 g/dL (3.5-5.0) L 10/13/16 01:55 Globulin 6.5 g/dL (2.4-3.5) H 10/13/16 01:55 Albumin/Globulin Ratio 0.2 (1.1-2.2) L 10/13/16 01:55 Lipase 110 Units/L (8-78) H 10/13/16 01:55 - Diagnostic Findings Chest x-ray: report reviewed, image reviewed CT scan - chest: report reviewed, image reviewed - Clinical Findings Intake & Output: Intake & Output 10/12/16 10/12/16 10/13/16 15:59 23:59 07:59 Intake Total 0 / 1000 Balance 0 / 1000 Weight 76.4 kg Consult Discharge Plan - Plan Referrals: Dorys Abraham, FIELD AGRONOMIST [Primary Care Provider] -
[2016-10-13] MEDS: Vancomycin 1,250 MG in D5% in Water 250 ML IVPB SCH ×2 (06:57→18:18)
[2016-10-13] MEDS: Ipratropium/Albuterol Neb 3 ML IH SCH ×5 (08:14→23:56)
[2016-10-13] MEDS: Budesonide/Formoterol 160/4.5 MDI IH SCH ×2 (08:14→21:05)
[2016-10-13] MEDS ORDERED: Aspirin Enteric Coated 81 MG Tablet PO SCH (09:00)
[2016-10-13] MEDS: Folic Acid 1 MG TABLET PO SCH (10:16)
[2016-10-13] MEDS: Aspirin Enteric Coated 81 MG Tablet PO SCH (10:16)
[2016-10-13] MEDS: 0.9 % Sodium Chloride 1,000 ML IVC SCH (10:16)
[2016-10-13] MEDS: Piperacillin/Tazobactam 3.375 GM in D5% in Water (Mini-Bag+) 100 ML IVPB SCH ×2 (12:17→20:46)
--- NOTE | 2016-10-13 12:38 | Event Note ---
Date of Encounter: 10/13/16 Time of Encounter: 09:50 Patient currently on BiPAP. Was having significant difficulty in breathing earlier. On bronchodilator therapy scheduled. Evaluated by pulmonology. Recommend thoracentesis when patient is off BiPAP for 1-2 hours. On broad- spectrum antibiotics for sepsis from pneumonia. Patient starting to have some improvement in urine output. Will monitor closely. Lactate level has normalized. Start patient on diet. DVT prophylaxis with Lovenox.
[2016-10-13] MEDS: *HR* HYDROcodone/Acet 7.5/325 mg TABLET PO PRN ×2 (13:22→21:02)
[2016-10-13] MEDS: *HR* Enoxaparin 40 MG/0.4 ML SYRINGE SQ SCH (14:06)
[2016-10-14] MEDS: methylPREDNISolone 125 MG/2 ML VIAL IVP SCH ×2 (00:41→07:24)
[2016-10-14] MEDS: *HR* HYDROmorphone (PF) 1 MG/ML SYRINGE IVP PRN ×4 (00:53→22:19)
[2016-10-14] MEDS: 0.9 % Sodium Chloride 1,000 ML IVC SCH ×2 (02:13→17:59)
[2016-10-14] MEDS: Piperacillin/Tazobactam 3.375 GM in D5% in Water (Mini-Bag+) 100 ML IVPB SCH ×3 (03:32→20:08)
[2016-10-14] MEDS: *HR* HYDROcodone/Acet 7.5/325 mg TABLET PO PRN ×3 (03:34→20:08)
[2016-10-14] MEDS: Ipratropium/Albuterol Neb 3 ML IH SCH ×5 (04:59→20:04)
[2016-10-14] MEDS ORDERED: *HR* Enoxaparin 40 MG/0.4 ML SYRINGE SQ SCH (06:00)
[2016-10-14 06:14] LABS: BUN/Creatinine Ratio 46 (6-26); Basophils # 0.1 K/mcL (0.0-0.2); Basophils % 0.2 %; Carbon Dioxide 29 mEq/L (19-29); Chloride 97 mEq/L (98-109); Glucose 138 mg/dL (70-99); Hematocrit 38.3 % (37.5-50.1); Hemoglobin 11.3 g/dL (12.9-16.9); Immature Granulocytes % 3.8 % (0-4); Lymphocytes % 3.4 %; Magnesium 2.1 mg/dL (1.6-2.6); Mean Corpuscular HGB Conc 29.5 g/dL (31.6-35.5); Mean Corpuscular Hemoglobin 22.7 pg (28.0-33.3); Mean Corpuscular Volume 76.9 fL (83.0-100.0); Mean Platelet Volume 10.2 fL (9.4-12.4); Monocytes # 1.2 K/mcL (0.0-1.3); Monocytes % 4.4 %; Neutrophils # 24.6 K/mcL (1.6-8.9); Osmolality,Calculated 292 (280-300); Platelet Count 473 K/mcL (140-400); Red Blood Count 4.98 M/mcL (4.19-5.50); Segmented Neutrophils % 88.2 %; Sodium 135 mEq/L (136-145); eGFR For African Americans > 60 (> 60); eGFR For Non-African Americans > 60 (> 60)
[2016-10-14 06:24] LABS: Blood Urea Nitrogen 41 mg/dL (8-26)
[2016-10-14] MEDS: *HR* Enoxaparin 40 MG/0.4 ML SYRINGE SQ SCH (06:36)
[2016-10-14 06:43] LABS: Platelet Estimate Increased (Normal)
[2016-10-14] MEDS ORDERED: Aminoglycoside Consult 1 EACH MC ONE (07:17)
--- NOTE | 2016-10-14 07:17 | Pulmonology Progress Note ---
Date of Encounter: 10/14/16 Time of Encounter: 07:15 Assessment and Plan (1) Acute and chronic respiratory failure Current Visit: Yes Status: Acute This is multifactorial including pneumonia lung cancer COPD exacerbation large effusion continue positive airway pressure as needed for work of breathing wean supplemental oxygen to keep sats greater than 88% recommend transitioning from bed to out of bed to chair and encourage incentive spirometry once off continuous need for positive airway pressure Qualifiers: Respiratory failure complication: hypoxia Qualified Code(s): J96.21 - Acute and chronic respiratory failure with hypoxia (2) Sepsis Current Visit: No Status: Resolved This appears to be improving with administration of fluids and antimicrobials repeat lactic acid has normalized Qualifiers: Sepsis type: sepsis due to unspecified organism Qualified Code(s): A41.9 - Sepsis, unspecified organism (3) KAVITHA (obstructive sleep apnea) Current Visit: No Status: Acute Currently requiring bilevel positive airway pressure support for work of breathing when this need has been removed patient can be transitioned to 12/6 BiPAP at night and with Naps (4) Acute exacerbation of chronic obstructive airways disease Current Visit: Yes Status: Acute Agree with use of steroids he can likely be transitioned to 40 mg enteral prednisone today I would continue this for her two-week taper continue bronchodilators as scheduled meter dose inhaler (Symbicort) (5) Metastatic lung cancer (metastasis from lung to other site) Current Visit: Yes Status: Acute Oncology should be consulted to discuss patient about timing of chemotherapy he seems to be more receptive to this at this time Qualifiers: Laterality: unspecified laterality Qualified Code(s): C34.90 - Malignant neoplasm of unspecified part of unspecified bronchus or lung (6) Pneumonia Current Visit: Yes Status: Acute Thus far cultures are negative I would plan to de-escalate patient at least from MRSA coverage given potential for renal toxicity. We treat for at least 5 days possibly 7 based upon clinical course Qualifiers: Pneumonia type: due to unspecified organism Laterality: unspecified laterality Lung location: unspecified part of lung Qualified Code(s): J18.9 - Pneumonia, unspecified organism (7) Pleural effusion Current Visit: Yes Status: Acute Plan for thoracentesis today A thoracentesis is recommended. The procedure , risks, benefits, complications, and expected outcomes have been reviewed. Benefits of diagnosis, as well as risks to include bleeding, infection, pneumothorax which may require surgical intervention, and in a small population. The patient is aware that sometimes test is nondiagnostic. Discussed with patient and agrees to proceed. (8) DVT prophylaxis Current Visit: No Status: Acute Continue chemical DVT prophylaxis with low molecular weight heparin if no other contraindication exist Subjective Principal diagnosis: Pneumonia Interval history: Since I visited with the patient yesterday morning and afternoon he is overall made improvement. He is much less dyspneic was able to tolerate about a half an hour off BiPAP yesterday and feels like he can tolerate off it this morning. Objective PUL Vital signs: Last Vital Signs Temp 97.5 F L 10/14/16 05:21 Pulse 85 10/14/16 05:21 Resp 20 10/14/16 05:21 BP 138/89 10/14/16 05:21 Pulse Ox 96 10/14/16 05:21 General appearance: no acute distress Auscultation: bilateral: diminished breath sounds, wheezes (Right greater than left inspiratory primarily), rhonchi (Scattered in both lung hutson) Cardiovascular: regular rate and rhythm Gastrointestinal: soft, other (Mild tenderness to deep palpation without rigidity) Extremities: no edema normal mental status, non-focal exam Results - Laboratory Findings CBC and BMP: 10/14/16 05:46 10/14/16 05:46 PT/INR, D-dimer D-Dimer 7167 ng/mLFEU (0-500) H 10/13/16 01:55 Abnormal lab findings: Abnormal lab results WBC 27.9 K/mcL (4.3-11.1) H 10/14/16 05:46 Hgb 11.3 g/dL (12.9-16.9) L D 10/14/16 05:46 MCV 76.9 fL (83.0-100.0) L 10/14/16 05:46 MCH 22.7 pg (28.0-33.3) L 10/14/16 05:46 MCHC 29.5 g/dL (31.6-35.5) L 10/14/16 05:46 RDW 20.0 % (11.5-14.5) H 10/14/16 05:46 Plt Count 473 K/mcL (140-400) H 10/14/16 05:46 Neutrophils # 24.6 K/mcL (1.6-8.9) H 10/14/16 05:46 Reactive Lymphocytes Present (Not Present) A 10/13/16 01:55 Smudge Cells Present (Not Present) A 10/13/16 01:55 Platelet Estimate Increased (Normal) H 10/14/16 05:46 D-Dimer 7167 ng/mLFEU (0-500) H 10/13/16 01:55 Sodium 135 mEq/L (136-145) L 10/14/16 05:46 Potassium 5.0 mEq/L (3.5-4.5) H 10/14/16 05:46 Chloride 97 mEq/L (98-109) L 10/14/16 05:46 BUN 41 mg/dL (8-26) H D 10/14/16 05:46 BUN/Creatinine Ratio 46 (6-26) H 10/14/16 05:46 Glucose 138 mg/dL (70-99) H 10/14/16 05:46 Direct Bilirubin 0.7 mg/dL (0.0-0.5) H 10/13/16 01:55 AST 104 Units/L (5-34) H 10/13/16 01:55 ALT 56 Units/L (0-55) H 10/13/16 01:55 Alkaline Phosphatase 1523 Units/L (38-126) H 10/13/16 01:55 Albumin 1.6 g/dL (3.5-5.0) L 10/13/16 01:55 Globulin 6.5 g/dL (2.4-3.5) H 10/13/16 01:55 Albumin/Globulin Ratio 0.2 (1.1-2.2) L 10/13/16 01:55 Lipase 110 Units/L (8-78) H 10/13/16 01:55 - Microbiology Findings Microbiology Findings: Microbiology, Last 48 Hours 10/14/16 01:10 Sputum Culture - Preliminary Sputum 10/14/16 01:10 Legionella Antigen - Final Urine,Clean Catch Streptococcus pneumoniae Antigen (M - Final - Clinical Findings Intake & Output: Intake & Output 10/13/16 10/13/16 10/14/16 15:59 23:59 07:59 Intake Total 730 / 730 1900 / 1900 100 / 100 Output Total 350 / 350 0 / 0 400 / 400 Balance 380 / 380 1900 / 1900 -300 / -300 Weight 76.5 kg Consult Discharge Plan - Plan Referrals: Dorys Abraham, MEDIA/INSTRUCTIONAL DESIGNER [Primary Care Provider] -
[2016-10-14] MEDS: Vancomycin 1,250 MG in D5% in Water 250 ML IVPB SCH ×2 (07:25→18:02)
[2016-10-14] MEDS: Budesonide/Formoterol 160/4.5 MDI IH SCH ×2 (07:43→20:04)
--- NOTE | 2016-10-14 08:55 | Procedure Note ---
Date of procedure: 10/14/16 Pre-op diagnosis: Pleural effusion Post-op diagnosis: same Procedure: A time-out was completed verifying correct patient, procedure, site, positioning , and special equipment if applicable. The patients left side was prepped and draped in a sterile manner after the appropriate infiltration level was confirmed by ultrasound. 1% lidocaine was used anesthetize the surrounding skin. A finder needle was then used to locate fluid and serosanguinous fluid was obtained. A 10-blade scalpel used to make the incision. The thoracentesis catheter was then threaded without difficulty. The patient had 1500mL of serosanguinous fluid removed. A post-procedure chest x-ray was ordered and the fluid will be sent for several studies. No immediate complications Surgeon: Shaji Horn Pathology: other (pleural fluid) Condition: stable Disposition: no change
[2016-10-14] MEDS: Folic Acid 1 MG TABLET PO SCH (09:00)
[2016-10-14] MEDS: Aspirin Enteric Coated 81 MG Tablet PO SCH (09:00)
[2016-10-14] MEDS ORDERED: Saline Nasal Spray 44 ML BOTTLE NS PRN (09:05)
[2016-10-14 09:22] LABS: Lactate Dehydrogenase 572 Units/L (159-327)
--- NOTE | 2016-10-14 09:49 | Internal Med Progress Note ---
Date of Encounter: 10/14/16 Time of Encounter: 08:45 - Assessment and plan (1) Acute and chronic respiratory failure Current Visit: Yes Status: Acute Assessment and plan: Continue current management by treating underlying conditions including pneumonia and COPD. Wean FiO2 as tolerated. Pulmonology following. Patient underwent thoracentesis today. This should help with his symptoms. Remains at high risk for complications including worsening respiratory failure requiring intubation. Qualifiers: Respiratory failure complication: hypoxia Qualified Code(s): J96.21 - Acute and chronic respiratory failure with hypoxia (2) Severe sepsis Current Visit: Yes Status: Acute Assessment and plan: Due to pneumonia. Leukocytosis slightly better today. Patient not having any fever. Continue broad-spectrum antibiotics for now. (3) COPD exacerbation Current Visit: Yes Status: Acute Assessment and plan: On bronchodilators, steroids and IV antibiotics along with O2 supplementation. (4) Healthcare-associated pneumonia Current Visit: Yes Status: Acute Assessment and plan: On broad-spectrum antibiotics. Cultures have been negative so far. (5) Hypertension Current Visit: Yes Status: Chronic Assessment and plan: Blood pressure is elevated. We will resume home medications. Qualifiers: Hypertension type: essential hypertension Qualified Code(s): I10 - Essential (primary) hypertension (6) Pleural effusion Current Visit: Yes Status: Acute Assessment and plan: Likely related to malignancy. Underwent thoracentesis today. We will recheck x -ray tomorrow to look for re-effusion. Patient may require Pleurx catheter. (7) Metastatic lung cancer (metastasis from lung to other site) Current Visit: Yes Status: Acute Assessment and plan: Follow-up outpatient with oncology Qualifiers: Laterality: unspecified laterality Qualified Code(s): C34.90 - Malignant neoplasm of unspecified part of unspecified bronchus or lung (8) Pneumonia Current Visit: Yes Status: Suspected Assessment and plan: Patient currently being treated for healthcare associated pneumonia with broad- spectrum antibiotics. Will follow culture results. Qualifiers: Pneumonia type: due to methicillin-sensitive Staphylococcus aureus (MSSA) Laterality: bilateral Lung location: unspecified part of lung Qualified Code (s): J15.211 - Pneumonia due to Methicillin susceptible Staphylococcus aureus (9) DVT prophylaxis Current Visit: No Status: Acute Assessment and plan: On DVT prophylaxis with Lovenox - Subjective Interval history: Patient is feeling slightly better today. He just underwent thoracentesis on the left side. Has some pain related to the procedure. Breathing is slightly better. Currently on nonrebreather. No fever or chills reported overnight. - Constitutional Vitals: Temp Pulse Resp BP Pulse Ox 96.8 F L 94 16 144/100 98 10/14/16 07:32 10/14/16 07:32 10/14/16 07:32 10/14/16 07:32 10/14/16 07:32 General appearance: Present: mild distress, A&O X 3, answers questions appropriately - Eye Eye exam: Present: EOMI, PERRL, conjuntiva pink, sclera anicteric - Neck Neck exam general surgery: Present: supple, trachea midline. Absent: lymphadenopathy - Respiratory Respiratory exam: Present: accessory muscle use, prolonged expiratory phase, wheezes. Absent: rales, rhonchi Additional comments: Breath sounds improved in left base - Cardiovascular Cardiovascular exam: Present: RRR, +S1, +S2. Absent: diastolic murmur, gallop, rubs, systolic murmur - GI/Abdominal GI/Abdominal exam: Present: normal bowel sounds, soft, no peritoneal signs. Absent: distended, tenderness - Extremities Exam Extremities exam: Present: warm, radial pulses palpable and symetrical. Absent : calf tenderness, cyanotic, pedal edema - Neurological Exam Neurological exam: Present: alert, oriented X3, no focal deficits. Absent: facial droop, speech deficit - Skin Skin exam: Present: dry, intact Internal Medicine: Result - Labs CBC & Chem 7: 10/14/16 05:46 10/14/16 05:46 Labs: Short CBC 10/14/16 Range/Units 05:46 WBC 27.9 H (4.3-11.1) K/mcL Hgb 11.3 L D (12.9-16.9) g/dL Hct 38.3 (37.5-50.1) % Plt Count 473 H (140-400) K/mcL Neutrophils # 24.6 H (1.6-8.9) K/mcL BMP 10/14/16 05:46 Sodium 135 L Potassium 5.0 H Chloride 97 L Carbon Dioxide 29 BUN 41 H D Creatinine 0.89 Glucose 138 H Calcium 9.0 - ABG Interpretation ABG results: PT/INR, D-dimer D-Dimer 7167 ng/mLFEU (0-500) H 10/13/16 01:55 - Impressions Impressions Chest X-Ray 10/14/16 08:48 IMPRESSION: 1. Stable mild right pleural effusion and mild- moderate residual left pleural effusion. No pneumothorax. 2. Stable bilateral multifocal pulmonary opacities. D/ / David Lopez MD / David Lopez MD Interpreting Provider: David Lopez MD Consult Discharge Plan - Plan Referrals: Dorys Abraham PRESCHOOL ASSISTANT [Primary Care Provider] - 11/17/16 1:40 pm
[2016-10-14] MEDS: Nicotine 21 MG PATCH.TD24 TD SCH (11:40)
[2016-10-14] MEDS: Levofloxacin 750 MG/150 ML 750 MG/150 ML BAG IVPB SCH (11:42)
[2016-10-14 12:04] LABS: Amylase,Pleural Fluid 73 Units/L (No Ref Range); Glucose,Pleural Fluid 79 mg/dL (No Ref Range); LDH,Pleural Fluid 569 Units/L (No Ref Range); Total Protein,Pleural Fluid 3.4 g/dL (No Ref Range); Triglycerides, Pleural Fluid 38 mg/dL (No Ref Range)
[2016-10-14 12:13] LABS: RBC,Pleural Fluid 0.047 M/mcL
[2016-10-14 13:02] LABS: Appearance of Pleural Fl Bloody (Clear)
--- NOTE | 2016-10-14 13:17 | Electrocardiograph Report ---
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
[2016-10-15] MEDS: Ipratropium/Albuterol Neb 3 ML IH SCH ×7 (00:38→23:28)
[2016-10-15] MEDS: *HR* HYDROcodone/Acet 7.5/325 mg TABLET PO PRN ×2 (02:24→09:13)
[2016-10-15] MEDS: Piperacillin/Tazobactam 3.375 GM in D5% in Water (Mini-Bag+) 100 ML IVPB SCH (03:27)
[2016-10-15] MEDS: *HR* Enoxaparin 40 MG/0.4 ML SYRINGE SQ SCH (05:19)
[2016-10-15] MEDS: *HR* HYDROmorphone (PF) 1 MG/ML SYRINGE IVP PRN (05:20)
[2016-10-15 05:46] LABS: Basophils % 0.1 %; Eosinophils % 1.4 %; Nucleated Red Blood Cells 0.1 /100 WBC (0)
[2016-10-15 05:47] LABS: Eosinophils # 0.4 K/mcL (0.0-0.6); Hematocrit 35.5 % (37.5-50.1); Hemoglobin 10.3 g/dL (12.9-16.9); Immature Granulocytes % 4.3 % (0-4); Lymphocytes # 0.7 K/mcL (0.6-4.6); Lymphocytes % 2.7 %; Mean Corpuscular Volume 75.7 fL (83.0-100.0); Mean Platelet Volume 10.1 fL (9.4-12.4); Monocytes % 11.2 %; Platelet Count 428 K/mcL (140-400); Red Blood Count 4.69 M/mcL (4.19-5.50); Red Cell Distribution Width 19.4 % (11.5-14.5); Segmented Neutrophils % 80.3 %
[2016-10-15 05:53] LABS: Neutrophils # 21.4 K/mcL (1.6-8.9)
[2016-10-15 06:01] LABS: BUN/Creatinine Ratio 45 (6-26); Blood Urea Nitrogen 36 mg/dL (8-26); Calcium 8.5 mg/dL (8.6-10.8); Carbon Dioxide 28 mEq/L (19-29); Chloride 99 mEq/L (98-109); Glucose 105 mg/dL (70-99); Osmolality,Calculated 291 (280-300); Potassium 4.4 mEq/L (3.5-4.5); Sodium 136 mEq/L (136-145); eGFR For African Americans > 60 (> 60); eGFR For Non-African Americans > 60 (> 60)
[2016-10-15 06:46] LABS: Platelet Estimate Normal (Normal)
--- NOTE | 2016-10-15 07:20 | Pulmonology Progress Note ---
Date of Encounter: 10/15/16 Time of Encounter: 07:20 Assessment and Plan (1) Acute and chronic respiratory failure Current Visit: Yes Status: Acute This is multifactorial including pneumonia lung cancer COPD exacerbation large effusion continue positive airway pressure as needed for work of breathing wean supplemental oxygen to keep sats greater than 88% recommend transitioning from bed to out of bed to chair and encourage incentive spirometry o Qualifiers: Respiratory failure complication: hypoxia Qualified Code(s): J96.21 - Acute and chronic respiratory failure with hypoxia (2) KAVITHA (obstructive sleep apnea) Current Visit: No Status: Acute Currently requiring bilevel positive airway pressure support for work of breathing when this need has been removed patient can be transitioned to 12/6 BiPAP at night and with Naps (3) Acute exacerbation of chronic obstructive airways disease Current Visit: Yes Status: Acute Agree with use of steroids for two-week taper continue bronchodilators as scheduled meter dose inhaler (Symbicort) (4) Metastatic lung cancer (metastasis from lung to other site) Current Visit: Yes Status: Acute Oncology should be consulted to discuss patient about timing of chemotherapy he seems to be more receptive to this at this time Qualifiers: Laterality: unspecified laterality Qualified Code(s): C34.90 - Malignant neoplasm of unspecified part of unspecified bronchus or lung (5) Pneumonia Current Visit: Yes Status: Suspected I would de-escalate to respiratory fluoroquinolone to complete 5 day course Qualifiers: Pneumonia type: due to methicillin-sensitive Staphylococcus aureus (MSSA) Laterality: bilateral Lung location: unspecified part of lung Qualified Code (s): J15.211 - Pneumonia due to Methicillin susceptible Staphylococcus aureus (6) Pleural effusion Current Visit: Yes Status: Acute Exudative process which is associated with high LDH concerning for malignant pleural effusion cytology pending will likely need Pleurx catheter placement which can be done early next week. (7) DVT prophylaxis Current Visit: No Status: Acute Continue chemical DVT prophylaxis with low molecular weight heparin if no other contraindication exist Subjective Principal diagnosis: Pneumonia Interval history: Patient were BiPAP overnight did well now off BiPAP breathing is a little bit worse than postthoracentesis yesterday which improved after volume removal. Was able to remove about 1.5 L of sanguinous exudative fluid. No untoward effects post procedure although he does complain of some pain at the insertion site Objective PUL Vital signs: Last Vital Signs Temp 98.3 F 07/06/17 04:06 Pulse 102 10/15/16 04:06 Resp 24 10/15/16 04:16 BP 134/91 10/15/16 04:06 Pulse Ox 94 10/15/16 04:16 General appearance: no acute distress ENT: oropharynx moist Effort: mildly labored Auscultation: bilateral: diminished breath sounds (Left greater than right), wheezes (But significantly improved) Cardiovascular: regular rate and rhythm Gastrointestinal: normoactive bowel sounds, non-tender Extremities: edema normal mental status, non-focal exam Results - Laboratory Findings CBC and BMP: 10/15/16 04:51 10/15/16 04:51 PT/INR, D-dimer D-Dimer 7167 ng/mLFEU (0-500) H 10/13/16 01:55 Abnormal lab findings: Abnormal lab results WBC 26.6 K/mcL (4.3-11.1) H 10/15/16 04:51 Hgb 10.3 g/dL (12.9-16.9) L 10/15/16 04:51 Hct 35.5 % (37.5-50.1) L 10/15/16 04:51 MCV 75.7 fL (83.0-100.0) L 10/15/16 04:51 MCH 22.0 pg (28.0-33.3) L 10/15/16 04:51 MCHC 29.0 g/dL (31.6-35.5) L 10/15/16 04:51 RDW 19.4 % (11.5-14.5) H 10/15/16 04:51 Plt Count 428 K/mcL (140-400) H 10/15/16 04:51 Immature Gran % 4.3 % (0-4) H 10/15/16 04:51 Neutrophils # 21.4 K/mcL (1.6-8.9) H 10/15/16 04:51 Monocytes # 3.0 K/mcL (0.0-1.3) H 10/15/16 04:51 Nucleated RBCs/100 WBC 0.1 /100 WBC (0) H 10/15/16 04:51 Reactive Lymphocytes Present (Not Present) A 10/13/16 01:55 Smudge Cells Present (Not Present) A 10/13/16 01:55 D-Dimer 7167 ng/mLFEU (0-500) H 10/13/16 01:55 BUN 36 mg/dL (8-26) H 10/15/16 04:51 BUN/Creatinine Ratio 45 (6-26) H 10/15/16 04:51 Glucose 105 mg/dL (70-99) H 10/15/16 04:51 Calcium 8.5 mg/dL (8.6-10.8) L 10/15/16 04:51 Direct Bilirubin 0.7 mg/dL (0.0-0.5) H 10/13/16 01:55 AST 104 Units/L (5-34) H 10/13/16 01:55 ALT 56 Units/L (0-55) H 10/13/16 01:55 Alkaline Phosphatase 1523 Units/L (38-126) H 10/13/16 01:55 Lactate Dehydrogenase 572 Units/L (159-327) H 10/14/16 05:46 Albumin 1.6 g/dL (3.5-5.0) L 10/13/16 01:55 Globulin 6.5 g/dL (2.4-3.5) H 10/13/16 01:55 Albumin/Globulin Ratio 0.2 (1.1-2.2) L 10/13/16 01:55 Lipase 110 Units/L (8-78) H 10/13/16 01:55 Pleural Appearance Bloody (Clear) A 10/14/16 11:14 Pleural RBC 0.047 M/mcL (0.000-0.002) H 10/14/16 11:14 - Microbiology Findings Microbiology Findings: Microbiology, Last 48 Hours 10/14/16 01:10 Sputum Culture - Preliminary Sputum 10/14/16 11:14 Body Fluid Culture - Final Pleural Fluid 10/13/16 05:43 Blood Culture - Preliminary Peripheral Venipuncture No growth. 10/14/16 01:10 Legionella Antigen - Final Urine,Clean Catch Streptococcus pneumoniae Antigen (M - Final - Clinical Findings Intake & Output: Intake & Output 10/14/16 10/14/16 10/15/16 15:59 23:59 07:59 Intake Total 1640 / 1640 220 / 220 100 / 100 Output Total 525 / 525 Balance 1640 / 1640 -305 / -305 100 / 100 Consult Discharge Plan - Plan Referrals: Dorys Abraham, INSTITUTIONAL COOK [Primary Care Provider] - 11/17/16 1:40 pm
[2016-10-15] MEDS: Budesonide/Formoterol 160/4.5 MDI IH SCH ×2 (07:32→20:05)
[2016-10-15] MEDS: Vancomycin 1,250 MG in D5% in Water 250 ML IVPB SCH (07:34)
[2016-10-15] MEDS: Levofloxacin 750 MG/150 ML 750 MG/150 ML BAG IVPB SCH (09:12)
[2016-10-15] MEDS: Folic Acid 1 MG TABLET PO SCH (09:13)
[2016-10-15] MEDS: predniSONE 20 MG TABLET PO SCH (09:13)
[2016-10-15] MEDS: Aspirin Enteric Coated 81 MG Tablet PO SCH (09:13)
[2016-10-15] MEDS: Nicotine 21 MG PATCH.TD24 TD SCH (09:15)
[2016-10-15] MEDS ORDERED: Bisacodyl 10 MG RECTAL SUPPOSITORY RC ONE (11:56)
--- NOTE | 2016-10-15 15:59 | Internal Med Progress Note ---
Date of Encounter: 10/15/16 Time of Encounter: 09:40 - Assessment and plan (1) Acute and chronic respiratory failure Current Visit: Yes Status: Acute Assessment and plan: Multifactorial. Due to COPD, metastasis to lung, pneumonia and pleural effusions. Continue O2 supplementation and wean FiO2 as tolerated. BiPAP use as needed. High risk for complications due to continuing need for high flow nasal cannula. Qualifiers: Respiratory failure complication: hypoxia Qualified Code(s): J96.21 - Acute and chronic respiratory failure with hypoxia (2) Severe sepsis Current Visit: Yes Status: Acute Assessment and plan: Clinically improving. We will de-escalate antibiotics as cultures have been negative. From pneumonia (3) COPD exacerbation Current Visit: Yes Status: Acute Assessment and plan: On bronchodilators. We will taper steroids. On O2 supplementation. Wean as tolerated. (4) Healthcare-associated pneumonia Current Visit: Yes Status: Acute Assessment and plan: We will de-escalate antibiotics. Place patient on Levaquin. (5) Hypertension Current Visit: Yes Status: Chronic Assessment and plan: Blood pressure is well controlled. Qualifiers: Hypertension type: essential hypertension Qualified Code(s): I10 - Essential (primary) hypertension (6) Pleural effusion Current Visit: Yes Status: Acute Assessment and plan: Exudative effusion. Most likely from malignancy. Pulmonology recommends Pleurx catheter placement which can be done early next week per their recommendations. (7) Metastatic lung cancer (metastasis from lung to other site) Current Visit: Yes Status: Acute Assessment and plan: Patient will need follow-up with oncology. Reviewing patient's records, he was seen in oncology clinic and recommended chemotherapy. However at that time he had not yet decided whether to receive chemotherapy. Presently he wishes to continue with chemotherapy. We will arrange for follow-up with oncology. Qualifiers: Laterality: unspecified laterality Qualified Code(s): C34.90 - Malignant neoplasm of unspecified part of unspecified bronchus or lung (8) Pneumonia Current Visit: Yes Status: Acute Assessment and plan: Cultures have so far been negative. We will de-escalate antibiotics. Place patient on Levaquin. Qualifiers: Pneumonia type: due to unspecified organism Laterality: bilateral Lung location: unspecified part of lung Qualified Code(s): J18.9 - Pneumonia, unspecified organism (9) DVT prophylaxis Current Visit: No Status: Acute Assessment and plan: With Lovenox subcutaneous. - Subjective Interval history: Patient remains dyspneic but improving. Denies any chest pain but has constipation and abdominal pain. No nausea or vomiting. No hemoptysis. Currently on high flow nasal cannula O2 supplementation at 8 L/m. - Constitutional Vitals: Temp Pulse Resp BP Pulse Ox 97.9 F 96 18 129/85 94 10/15/16 12:13 10/15/16 12:13 10/15/16 15:17 10/15/16 12:13 10/15/16 15:17 General appearance: Present: cooperative, mild distress, A&O X 3, answers questions appropriately - Respiratory Respiratory exam: Present: decreased breath sounds (At both bases), prolonged expiratory phase, rhonchi, wheezes. Absent: accessory muscle use, rales - Cardiovascular Cardiovascular exam: Present: RRR, +S1, +S2. Absent: diastolic murmur, gallop, rubs, systolic murmur - GI/Abdominal GI/Abdominal exam: Present: normal bowel sounds, soft, no peritoneal signs. Absent: distended, tenderness - Extremities Exam Extremities exam: Present: warm, radial pulses palpable and symetrical. Absent : calf tenderness, cyanotic, pedal edema - Neurological Exam Neurological exam: Present: alert, oriented X3, no focal deficits. Absent: facial droop, speech deficit - Skin Skin exam: Present: dry, intact Internal Medicine: Result - Labs CBC & Chem 7: 10/15/16 04:51 10/15/16 04:51 Labs: Short CBC 10/15/16 Range/Units 04:51 WBC 26.6 H (4.3-11.1) K/mcL Hgb 10.3 L (12.9-16.9) g/dL Hct 35.5 L (37.5-50.1) % Plt Count 428 H (140-400) K/mcL Neutrophils # 21.4 H (1.6-8.9) K/mcL BMP 10/15/16 04:51 Sodium 136 Potassium 4.4 Chloride 99 Carbon Dioxide 28 BUN 36 H Creatinine 0.80 Glucose 105 H Calcium 8.5 L - ABG Interpretation ABG results: PT/INR, D-dimer D-Dimer 7167 ng/mLFEU (0-500) H 10/13/16 01:55 - Impressions Impressions Chest X-Ray 10/15/16 07:00 IMPRESSION: 1. Cardiomegaly and pulmonary edema compatible with CHF. Small to moderate left and small right pleural effusions with left greater than right atelectasis/infiltrates. D/ / Ian Loyd MD / Ian Loyd MD Interpreting Provider: Ian Loyd MD Consult Discharge Plan - Plan Referrals: Dorys Abraham [employer]O PARTS CLERK [Primary Care Provider] - 11/17/16 1:40 pm
[2016-10-15] MEDS: clonazePAM 0.5 MG TABLET PO PRN (18:00)
[2016-10-15] MEDS: *HR* HYDROcodone/Acet 10/325 mg TABLET PO PRN (20:01)
[2016-10-15] MEDS: Sennosides/Docusate Sodium TABLET PO SCH (20:01)
[2016-10-16] MEDS: Ipratropium/Albuterol Neb 3 ML IH SCH ×6 (04:02→23:19)
[2016-10-16] MEDS: *HR* HYDROcodone/Acet 10/325 mg TABLET PO PRN ×3 (04:41→19:57)
[2016-10-16] MEDS: *HR* Enoxaparin 40 MG/0.4 ML SYRINGE SQ SCH (04:41)
[2016-10-16] MEDS: clonazePAM 0.5 MG TABLET PO PRN ×3 (04:45→21:22)
[2016-10-16] MEDS: Budesonide/Formoterol 160/4.5 MDI IH SCH ×2 (07:55→20:07)
[2016-10-16 08:19] LABS: Basophils # 0.1 K/mcL (0.0-0.2); Basophils % 0.2 %; Eosinophils # 0.4 K/mcL (0.0-0.6); Eosinophils % 1.3 %; Hematocrit 33.2 % (37.5-50.1); Hemoglobin 9.9 g/dL (12.9-16.9); Immature Granulocytes % 3.6 % (0-4); Immature Platelets 4.3 % (1.1-6.1); Lymphocytes # 0.7 K/mcL (0.6-4.6); Lymphocytes % 2.5 %; Mean Corpuscular HGB Conc 29.8 g/dL (31.6-35.5); Mean Corpuscular Hemoglobin 22.5 pg (28.0-33.3); Mean Corpuscular Volume 75.5 fL (83.0-100.0); Mean Platelet Volume 9.9 fL (9.4-12.4); Monocytes # 3.3 K/mcL (0.0-1.3); Monocytes % 12.1 %; Neutrophils # 22.2 K/mcL (1.6-8.9); Nucleated Red Blood Cells 0.1 /100 WBC (0); Platelet Count 409 K/mcL (140-400); Red Cell Distribution Width 19.2 % (11.5-14.5); Segmented Neutrophils % 80.3 %
[2016-10-16 08:31] LABS: BUN/Creatinine Ratio 38 (6-26); Blood Urea Nitrogen 40 mg/dL (8-26); Calcium 9.1 mg/dL (8.6-10.8); Carbon Dioxide 30 mEq/L (19-29); Chloride 97 mEq/L (98-109); Glucose 99 mg/dL (70-99); Osmolality,Calculated 286 (280-300); Potassium 5.3 mEq/L (3.5-4.5); Sodium 133 mEq/L (136-145); eGFR For African Americans > 60 (> 60); eGFR For Non-African Americans > 60 (> 60)
[2016-10-16 08:52] LABS: Thyroid Stimulating Hormone 2.693 mcIU/mL (0.350-4.840)
[2016-10-16] MEDS: levoFLOXacin 750 MG TABLET PO SCH (09:06)
[2016-10-16] MEDS: Aspirin Enteric Coated 81 MG Tablet PO SCH (09:06)
[2016-10-16] MEDS: Nicotine 21 MG PATCH.TD24 TD SCH (09:07)
[2016-10-16] MEDS: Folic Acid 1 MG TABLET PO SCH (09:07)
[2016-10-16] MEDS: predniSONE 20 MG TABLET PO SCH (09:07)
[2016-10-16] MEDS: Sennosides/Docusate Sodium TABLET PO SCH ×2 (09:07→19:57)
[2016-10-16 12:10] LABS: ABG Base Excess 5.3 mEq/L (-2.0 to 3.0); ABG HCO3 32.4 mEQ/L (21-27); ABG Oxygen Saturation 96 % (95-98); ABG PCO2 60 mmHg (35-45); ABG PH 7.34 pH Units (7.32-7.45); ABG PO2 88 mmHg (85-104); ABG TCO2 34.2 mEq/L (20-26)
[2016-10-16 12:11] LABS: Blood Gas FiO2 50 %
[2016-10-16] MEDS: 0.9 % Sodium Chloride 1,000 ML IVC SCH (13:02)
--- NOTE | 2016-10-16 15:13 | Internal Med Progress Note ---
Date of Encounter: 10/16/16 Time of Encounter: 11:15 - Assessment and plan (1) Acute and chronic respiratory failure Current Visit: Yes Status: Acute Assessment and plan: Multifactorial. Pleural effusion, pneumonia, lung cancer and COPD. Treating underlying conditions. Continue BiPAP use as needed. Pulmonology following. High risk for complications including worsening respiratory failure requiring endotracheal intubation and mechanical ventilation Qualifiers: Respiratory failure complication: hypoxia and hypercapnia Qualified Code(s) : J96.21 - Acute and chronic respiratory failure with hypoxia; J96.22 - Acute and chronic respiratory failure with hypercapnia (2) Severe sepsis Current Visit: Yes Status: Acute Assessment and plan: Patient is not having any fevers. Leukocytosis persists but could be related to use of steroids. We will continue to monitor vital signs closely. Continue levofloxacin. Cultures have been negative so far. (3) COPD exacerbation Current Visit: Yes Status: Acute Assessment and plan: Treating with prednisone, bronchodilators and O2 supplementation. Pulmonology following. (4) Healthcare-associated pneumonia Current Visit: Yes Status: Acute Assessment and plan: No organism identified. 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 Status post thoracentesis.. Discussed with pulmonology. Recommend placement of small bore chest tube versus Pleurx catheter to help treat with patient's symptoms. Currently patient is requiring BiPAP and would not be able to tolerate thoracentesis. (7) Metastatic lung cancer (metastasis from lung to other site) Current Visit: Yes Status: Acute Assessment and plan: Will consult oncology for reevaluation and recommendations Qualifiers: Laterality: unspecified laterality Qualified Code(s): C34.90 - Malignant neoplasm of unspecified part of unspecified bronchus or lung (8) Pneumonia Current Visit: Yes Status: Acute Assessment and plan: Management as above Qualifiers: Pneumonia type: due to unspecified organism Laterality: bilateral Lung location: unspecified part of lung Qualified Code(s): J18.9 - Pneumonia, unspecified organism (9) DVT prophylaxis Current Visit: No Status: Acute Assessment and plan: Lovenox - Subjective Interval history: Patient requiring BiPAP. Has declined since this morning with regards to respiratory status. He is more somnolent today. Was anxious yesterday and he did receive Klonopin. He denies any chest pain. He is able to wake up and answer questions appropriately. - Constitutional Vitals: Temp Pulse Resp BP Pulse Ox 97.6 F 104 27 118/82 96 10/15/16 23:23 10/16/16 06:53 10/16/16 12:04 10/16/16 12:04 10/16/16 12:04 General appearance: Present: cooperative, mild distress, A&O X 3, answers questions appropriately - Neck Neck exam general surgery: Present: supple, trachea midline. Absent: lymphadenopathy - Respiratory Respiratory exam: Present: decreased breath sounds (At both bases), prolonged expiratory phase. Absent: accessory muscle use, rales, rhonchi, wheezes - Cardiovascular Cardiovascular exam: Present: RRR, +S1, +S2. Absent: diastolic murmur, gallop, rubs, systolic murmur - GI/Abdominal GI/Abdominal exam: Present: normal bowel sounds, soft, no peritoneal signs. Absent: distended, tenderness - Extremities Exam Extremities exam: Present: warm, radial pulses palpable and symetrical. Absent : calf tenderness, cyanotic, pedal edema - Neurological Exam Neurological exam: Present: alert, oriented X3, no focal deficits. Absent: facial droop, speech deficit - Skin Skin exam: Present: dry, intact Internal Medicine: Result - Labs CBC & Chem 7: 10/16/16 08:00 10/16/16 08:00 Labs: Short CBC 10/16/16 Range/Units 08:00 WBC 27.6 H (4.3-11.1) K/mcL Hgb 9.9 L (12.9-16.9) g/dL Hct 33.2 L (37.5-50.1) % Plt Count 409 H (140-400) K/mcL Neutrophils # 22.2 H (1.6-8.9) K/mcL BMP 10/16/16 08:00 Sodium 133 L Potassium 5.3 H Chloride 97 L Carbon Dioxide 30 H BUN 40 H Creatinine 1.04 Glucose 99 Calcium 9.1 - ABG Interpretation ABG results: ABG ABG pH 7.34 pH Units (7.32-7.45) 10/16/16 11:58 ABG pCO2 60 mmHg (35-45) H 10/16/16 11:58 ABG pO2 88 mmHg (85-104) 10/16/16 11:58 ABG O2 Saturation 96 % (95-98) 10/16/16 11:58 PT/INR, D-dimer D-Dimer 7167 ng/mLFEU (0-500) H 10/13/16 01:55 - Impressions Impressions Chest X-Ray 10/16/16 11:13 IMPRESSION: 1. Persistent bilateral pleural effusions left greater than right. 2. Multifocal airspace disease is seen in both lungs which could represent metastatic disease or a multifocal pneumonia. D/ / 10/16/2016 13:06:57 Morgan Mckeon MD / Odilia Ayers Interpreting Provider: Morgan Mckeon MD Consult Discharge Plan - Plan Referrals: Dorys Abraham, HORTICULTURAL WORKER [Primary Care Provider] - 11/17/16 1:40 pm
[2016-10-16 16:31] LABS: INR 1.4; Prothrombin Time 15.6 Seconds (9.4-12.1)
--- NOTE | 2016-10-16 16:51 | Oncology Inp Consult Note ---
Date of Encounter: 10/16/16 Time of Encounter: 17:00 Assessment and Plan (1) Adenocarcinoma Status: Chronic Assessment and plan: Agent with metastatic adenocarcinoma the lung, brain imaging pending with liver metastatic disease extensive, status post biopsy, patient not favoring treatment until recently. He is hospitalized with shortness of breath due to COPD, possible lung metastatic disease status post thoracentesis and drainage of possible malignant effusion. Cytosis, possibly reactive secondary to lung cancer has been started on Levaquin due to shortness of breath and patchy infiltrative changes, on the BiPAP with respiratory distress. He would like to be a full code and once intubation. I have discussed on the phone today with Nicki, patient's chemotherapy briefly, we will discuss in person tomorrow as well. Rpt CXR reviewed. Tumor is positive for PDL1 and he will be a candidate for immunotherapy with chemotherapy, with relatively better outcome possible based on pathology findings. However, chemotherapy is usually administered as an outpatient once he is clinically improved. Will discuss with medical staff. Patient expressed understanding of the above plan to me. (2) Adenocarcinoma, lung Status: Acute Qualifiers: Laterality: left Qualified Code(s): C34.92 - Malignant neoplasm of unspecified part of left bronchus or lung - Data of Consult Requesting Physician: Shanta Matias MD Primary Care Provider: Dorys Abraham CNP - Consult Narrative Reason for consult: lung cancer History of present illness: Mr. Hernandez is a 56 year old male with medical history significant for hypertension, COPD, history of coronary artery disease, with a diagnosis of lung cancer metastatic to the liver status post biopsy of the liver lesion which showed adenocarcinoma, PDL1+, patient was seen and evaluated in the clinic , and chemotherapy option was discussed with him. Patient was reluctant to undergo treatment at that time. This is his third hospitalization within the last 2 months, first 2 episodes for shortness of breath when he underwent imaging that showed a soft tissue mass in the left lower lung measuring 4.9 x 2.5 cm with multiple liver lesions a history of metastatic disease lymph node periaortic lymph node aortocaval lymphadenopathy, brenda hepatis lymphadenopathy. He has had pleural effusion drained in the past has been hospitalized with shortness of breath record and large left-sided pleural effusion with partial collapse of the left lower lobe, bilateral pulmonary nodules and patchy bilateral air space disease concerning for pneumonia. s/p thoracentesis and drainage of 1500cc sero sanguinous fluid. Patient is very short of breath on BiPAP mask. He is willing to pursue further chemotherapy. He is worried that he is running out of time and needs treatment Denies any complaints, complete ROS not performed due to his SOB and difficulty communicating due to the mask Past Med Surg Social Fam HX - Past Medical History Medical history: cancer, COPD, coronary artery disease, hyperlipidemia, hypertension, myocardial infarction, other Psychiatric history: anxiety - Past Surgical History Surgical History: other - Social History Smoking Status: Former smoker Smokeless Tobacco Status: No Alcohol use: occasionally Drug use: marijuana - Family History Mother Family Member Ethnicity: Non- Living Status: Still Living Hx Family Respiratory Disorders: Yes Father Family Member Ethnicity: Non- Living Status: Hx Family Cardiac Disorders: Yes (Brain aneurysm) Sister Family Member Ethnicity: Non- Living Status: Still Living Hx Family Cancer: Yes (Breast) Medications and Allergies Albuterol Sulfate [Proair Hfa] 2 puff IH Q6H PRN 09/13/16 [History] Aspirin [Lo-Dose Aspirin EC] 243 mg PO DAILY 09/13/16 [History] Atorvastatin Calcium [Lipitor] 80 mg PO DAILY 09/13/16 [History] Clopidogrel [Plavix] 75 mg PO DAILY 09/13/16 [History] Lisinopril [Zestril] 10 mg PO DAILY 09/13/16 [History] Albuterol Neb [Proventil Neb] 2.5 mg IH Q2H PRN 30 Days 09/17/16 [Rx] Ferrous Sulfate 325 mg PO BIDWM 30 Days 09/17/16 [Rx] OxyCODONE/APAP 7.5/325 [Percocet 7.5/325 MG] 1 each PO Q6HR PRN #60 tablet 09/17 [Rx] Oxygen 3 l NS AD 09/20/16 [History] Citalopram [CeleXA] 10 mg PO DAILY #30 tablet 09/23/16 [Rx] Metoprolol XL (24 HR) Succ [Toprol Xl] 50 mg PO DAILY #30 tab.er.24h 09/23/16 [ Rx] Furosemide [Lasix] 20 mg PO DAILY #10 tablet 09/28/16 [Rx] Folic Acid 1 mg PO DAILY #90 tablet 10/01/16 [Rx] Allergies No Known Allergies Allergy (Verified 10/01/16 15:10) Review of systems: as in HPI Oncology - Exam - Constitutional Vitals: Temp Pulse Resp BP Pulse Ox 96.7 F L 112 20 110/75 96 10/16/16 16:38 10/16/16 16:38 10/16/16 16:38 10/16/16 16:38 10/16/16 16:38 General appearance: average body habitus - Head Head exam: Present: atraumatic - Eye Eye exam: Present: conjunctival injection - Neck Neck exam: Present: full ROM, normal inspection - Respiratory Respiratory exam: Present: accessory muscle use, respiratory distress - Cardiovascular Cardiovascular exam: Present: +S1, +S2, tachycardia - GI/Abdominal GI/Abdominal exam: Present: distended, soft - Extremities Exam Extremities exam: Present: pedal edema - Neurological Exam Neurological exam: Present: CN II-XII intact, oriented X3, no focal deficits - Psychiatric Psychiatric exam: Present: anxious Oncology - Results - Labs Labs: Short CBC 10/16/16 Range/Units 08:00 WBC 27.6 H (4.3-11.1) K/mcL Hgb 9.9 L (12.9-16.9) g/dL Hct 33.2 L (37.5-50.1) % Plt Count 409 H (140-400) K/mcL Neutrophils # 22.2 H (1.6-8.9) K/mcL BMP 10/16/16 08:00 Sodium 133 L Potassium 5.3 H Chloride 97 L Carbon Dioxide 30 H BUN 40 H Creatinine 1.04 Glucose 99 Calcium 9.1 - Imaging and Cardiology CT scan - chest Status: image reviewed by me Consult Discharge Plan - Plan Referrals: Dorys Abraham, CHIEF COOK [Primary Care Provider] - 11/17/16 1:40 pm
[2016-10-17 01:51] LABS: Basophils % 0.2 %
[2016-10-17 01:53] LABS: Basophils # 0.1 K/mcL (0.0-0.2); Eosinophils # 0.2 K/mcL (0.0-0.6); Eosinophils % 0.5 %; Hematocrit 30.9 % (37.5-50.1); Hemoglobin 9.1 g/dL (12.9-16.9); Immature Granulocytes % 3.6 % (0-4); Lymphocytes # 0.7 K/mcL (0.6-4.6); Lymphocytes % 2.2 %; Mean Corpuscular HGB Conc 29.4 g/dL (31.6-35.5); Mean Corpuscular Hemoglobin 22.2 pg (28.0-33.3); Mean Corpuscular Volume 75.6 fL (83.0-100.0); Monocytes # 2.4 K/mcL (0.0-1.3); Monocytes % 7.8 %; Neutrophils # 26.2 K/mcL (1.6-8.9); Platelet Count 431 K/mcL (140-400); Red Blood Count 4.09 M/mcL (4.19-5.50); Segmented Neutrophils % 85.7 %
[2016-10-17 02:08] LABS: BUN/Creatinine Ratio 42 (6-26); Carbon Dioxide 28 mEq/L (19-29); Chloride 99 mEq/L (98-109); Glucose 132 mg/dL (70-99); Osmolality,Calculated 294 (280-300); Potassium 5.8 mEq/L (3.5-4.5); Sodium 134 mEq/L (136-145); eGFR For African Americans > 60 (> 60); eGFR For Non-African Americans 59 (> 60)
[2016-10-17 02:09] LABS: Blood Urea Nitrogen 53 mg/dL (8-26)
[2016-10-17 02:17] LABS: Platelet Estimate Normal (Normal)
[2016-10-17] MEDS ORDERED: Calcium Gluconate 1,000 MG in D5% in Water 100 ML IVPB ONE (02:17)
[2016-10-17 02:18] LABS: Anisocytosis 2+ (Not Present)
[2016-10-17 02:19] LABS: Microcytosis Present (Not Present)
[2016-10-17] MEDS: *HR* HYDROcodone/Acet 10/325 mg TABLET PO PRN (02:28)
[2016-10-17] MEDS: 0.9 % Sodium Chloride 1,000 ML IVC SCH ×2 (02:29→10:46)
[2016-10-17] MEDS: Ipratropium/Albuterol Neb 3 ML IH SCH ×6 (03:27→23:40)
[2016-10-17] MEDS: clonazePAM 0.5 MG TABLET PO PRN (05:11)
[2016-10-17] MEDS: *HR* Enoxaparin 40 MG/0.4 ML SYRINGE SQ SCH (05:12)
--- NOTE | 2016-10-17 07:10 | Pulmonology Progress Note ---
Date of Encounter: 10/17/16 Time of Encounter: 07:10 Assessment and Plan (1) Acute and chronic respiratory failure Current Visit: Yes Status: Acute Neuropsych: Intubated and sedated for comfort on vent and improvement respiratory mechanics. Goal Coyne 4; daily SBT as clinically indicated. No focal neurological deficits Pulm: Acute on chronic hypoxic hypercapnic respiratory failure which appears acutely worsen secondary to pneumonia (wth possible ARDS) this is complicated by underlying lung cancer with lymphangitic spread malignant pleural effusion and COPD. low tidal volume ventilation strategy with permissive hypercapnia employed on pressure control ventilation. Goal PaO2 greater than 55-60 or SPO2 greater than 88% repeat ABG shows improvement ventilation. We will likely need smallbore chest tube for Pleurx catheter placement early part of this week. Ventilator bundle to prevent ventilator associated pneumonia will be implemented Cards: Distributive shock physiology secondary to sepsis this also complicated by sedation. Patient has been appropriately volume resuscitated (greater than 30 mL per KG) lactate was slightly elevated today we will trend this every 6 hours currently on vasopressor (levophed) titrate to goal MAP >60 FEN-GI: Nothing by mouth for now PPI prophylaxis given Renal: Mild RONDA on today's labs likely secondary to volume depletion/sepsis we will trend renal function twice daily and replace electrolytes continue to monitor urine output ID: Sepsis with shock physiology on broad-spectrum antimicrobials to cover for healthcare associated organisms patient has been recultured include including blood sputum pleural fluid and urine Heme/Onc: DVT prophylaxis given with low molecular weight heparin hemoglobin stable platelets are stable patient has metastatic non-small cell lung cancer but has not started chemotherapy Endo: Glucose monitored Integ/MSK: Skin care per routine ICU protocol to prevent ulcers all lines were examined without evidence of infection CODE: DNA are I spoke with the family including the patient's son and long-time girlfriend. They are in agreement that CODE STATUS should be changed to DNA are given extremely poor outcomes with cardiopulmonary resuscitation in the context of advanced metastatic cancer. This discussion was had with the patient 's primary oncologist. Overall prognosis. Poor and palliative care team will be consulted for ongoing discussion of goals of care. If no significant improvement in next 24-48 hours patient family may pursue comfort measures. Next of kin is currently his adult son and daughter. I spent 45min of Critical Care time with this patient. It involved decision making of high complexity to assess, manipulate, and support vital organ system failure and/or to prevent further life threatening deterioration of the patient' s condition. The time involved in the performance of separately reportable procedures was not counted toward critical care time. Qualifiers: Respiratory failure complication: hypoxia and hypercapnia Qualified Code(s) : J96.21 - Acute and chronic respiratory failure with hypoxia; J96.22 - Acute and chronic respiratory failure with hypercapnia (2) KAVITHA (obstructive sleep apnea) Current Visit: No Status: Acute (3) Acute exacerbation of chronic obstructive airways disease Current Visit: Yes Status: Acute (4) Metastatic lung cancer (metastasis from lung to other site) Current Visit: Yes Status: Acute Qualifiers: Laterality: unspecified laterality Qualified Code(s): C34.90 - Malignant neoplasm of unspecified part of unspecified bronchus or lung (5) Pneumonia Current Visit: Yes Status: Acute Qualifiers: Pneumonia type: due to unspecified organism Laterality: bilateral Lung location: unspecified part of lung Qualified Code(s): J18.9 - Pneumonia, unspecified organism (6) Pleural effusion Current Visit: Yes Status: Acute (7) DVT prophylaxis Current Visit: No Status: Acute Subjective Principal diagnosis: Pneumonia Interval history: I was called to the room by the hospitalist for concern of worsening respiratory failure and hypotension. When I arrived in the room patient was encephalopathic and in respiratory distress ABG performed at that time showed severe respiratory acidosis and patient was hypotensive he was transferred to the ICU where a central venous catheter was inserted and patient was subsequently intubated for respiratory failure. Objective PUL Vital signs: Last Vital Signs Temp 97.9 F 10/17/16 05:26 Pulse 120 10/17/16 05:26 Resp 26 10/17/16 05:26 BP 108/84 10/17/16 05:26 Pulse Ox 92 10/17/16 05:26 General appearance: appears uncomfortable, other (Sedated on vent) Effort: very labored Auscultation: bilateral: diminished breath sounds (Left greater than right), egophony Cardiovascular: regular rate and rhythm Gastrointestinal: normoactive bowel sounds, non-tender Extremities: no edema non-focal exam, pupils equal and round Results - Laboratory Findings CBC and BMP: 10/17/16 01:42 10/17/16 01:42 ABG ABG pH 7.34 pH Units (7.32-7.45) 10/16/16 11:58 ABG pCO2 60 mmHg (35-45) H 10/16/16 11:58 ABG pO2 88 mmHg (85-104) 10/16/16 11:58 ABG O2 Saturation 96 % (95-98) 10/16/16 11:58 PT/INR, D-dimer PT 15.6 Seconds (9.4-12.1) H 10/16/16 16:14 D-Dimer 7167 ng/mLFEU (0-500) H 10/13/16 01:55 Abnormal lab findings: Abnormal lab results WBC 30.6 K/mcL (4.3-11.1) H* 10/17/16 01:42 RBC 4.09 M/mcL (4.19-5.50) L 10/17/16 01:42 Hgb 9.1 g/dL (12.9-16.9) L 10/17/16 01:42 Hct 30.9 % (37.5-50.1) L 10/17/16 01:42 MCV 75.6 fL (83.0-100.0) L 10/17/16 01:42 MCH 22.2 pg (28.0-33.3) L 10/17/16 01:42 MCHC 29.4 g/dL (31.6-35.5) L 10/17/16 01:42 RDW 19.0 % (11.5-14.5) H 10/17/16 01:42 Plt Count 431 K/mcL (140-400) H 10/17/16 01:42 Neutrophils # 26.2 K/mcL (1.6-8.9) H 10/17/16 01:42 Monocytes # 2.4 K/mcL (0.0-1.3) H 10/17/16 01:42 Nucleated RBCs/100 WBC 0.1 /100 WBC (0) H 10/16/16 08:00 Reactive Lymphocytes Present (Not Present) A 10/13/16 01:55 Smudge Cells Present (Not Present) A 10/13/16 01:55 Anisocytosis 2+ (Not Present) A 10/17/16 01:42 Microcytosis Present (Not Present) A 10/17/16 01:42 PT 15.6 Seconds (9.4-12.1) H 10/16/16 16:14 D-Dimer 7167 ng/mLFEU (0-500) H 10/13/16 01:55 ABG pCO2 60 mmHg (35-45) H 10/16/16 11:58 ABG HCO3 32.4 mEQ/L (21-27) H 10/16/16 11:58 ABG Total CO2 34.2 mEq/L (20-26) H 10/16/16 11:58 ABG Base Excess 5.3 mEq/L (-2.0 to 3.0) H 10/16/16 11:58 Sodium 134 mEq/L (136-145) L 10/17/16 01:42 Potassium 5.8 mEq/L (3.5-4.5) H 10/17/16 01:42 BUN 53 mg/dL (8-26) H D 10/17/16 01:42 Creatinine 1.26 mg/dL (0.72-1.25) H 10/17/16 01:42 Est GFR (Non-Af Amer) 59 (> 60) L 10/17/16 01:42 BUN/Creatinine Ratio 42 (6-26) H 10/17/16 01:42 Glucose 132 mg/dL (70-99) H 10/17/16 01:42 Direct Bilirubin 0.7 mg/dL (0.0-0.5) H 10/13/16 01:55 AST 104 Units/L (5-34) H 10/13/16 01:55 ALT 56 Units/L (0-55) H 10/13/16 01:55 Alkaline Phosphatase 1523 Units/L (38-126) H 10/13/16 01:55 Lactate Dehydrogenase 572 Units/L (159-327) H 10/14/16 05:46 Albumin 1.6 g/dL (3.5-5.0) L 10/13/16 01:55 Globulin 6.5 g/dL (2.4-3.5) H 10/13/16 01:55 Albumin/Globulin Ratio 0.2 (1.1-2.2) L 10/13/16 01:55 Lipase 110 Units/L (8-78) H 10/13/16 01:55 Pleural Appearance Bloody (Clear) A 10/14/16 11:14 Pleural RBC 0.047 M/mcL (0.000-0.002) H 10/14/16 11:14 - Microbiology Findings Microbiology Findings: Microbiology, Last 48 Hours 10/14/16 11:14 Anaerobic Culture - Preliminary Pleural Fluid At this time, no anaerobic growth is present. The culture will be finalized after 5 days of incubation. 10/14/16 11:14 Body Fluid Culture - Preliminary Pleural Fluid 10/14/16 01:10 Sputum Culture - Final Sputum 10/13/16 07:15 Blood Culture - Preliminary Peripheral Venipuncture No growth. - Diagnostic Findings Chest x-ray: report reviewed, image reviewed - Clinical Findings Intake & Output: Intake & Output 10/16/16 10/16/16 10/17/16 15:59 23:59 07:59 Intake Total 120 / 120 0 / 0 1020 / 1020 Output Total 350 / 350 0 / 0 Balance 120 / 120 -350 / -350 1020 / 1020 Weight 76.9 kg 75.4 kg Consult Discharge Plan - Plan Referrals: Dorys Abraham MOLECULAR PATHOLOGIST [Primary Care Provider] - 11/17/16 1:40 pm
[2016-10-17] MEDS ORDERED: *HR* Etomidate 40 MG/20 ML VIAL IVP ONE (08:24)
[2016-10-17] MEDS: Budesonide/Formoterol 160/4.5 MDI IH SCH ×2 (08:53→19:44)
[2016-10-17 08:58] LABS: ABG Base Excess 0.2 mEq/L (-2.0 to 3.0); ABG HCO3 30.6 mEQ/L (21-27); ABG Oxygen Saturation 100 % (95-98); ABG PO2 218 mmHg (85-104); ABG TCO2 33.4 mEq/L (20-26)
[2016-10-17 08:59] LABS: Blood Gas FiO2 100 %
[2016-10-17 09:00] LABS: ABG PCO2 90 mmHg (35-45); ABG PH 7.14 pH Units (7.32-7.45)
[2016-10-17] MEDS ORDERED: *HR* FentaNYL (PF) 100 MCG/2 ML VIAL ONE (09:10)
[2016-10-17 09:12] LABS: INR 1.5
--- NOTE | 2016-10-17 09:49 | Procedure Note ---
Date of procedure: 10/17/16 Pre-op diagnosis: Respiratory failure Post-op diagnosis: same Procedure: Consent: Deferred as procedure was emergent Technique: A time out was preformed identifying the correct procedure, the correct location with the nursing staff. The right groin was prepped with 2% chlorhexidine and draped with a full length sterile sheet in the usual fashion. 1% lidocaine was administered subcutaneously for local anesthesia. The right Femoral vein was accessed under ultrasound guidance with an 18 gauge thin wall needle. A triple lumen CVC was inserted via the seldinger technique. Blood was withdrawn from all lumens and flushed with normal saline. The catheter was sutured in place and a sterile dressing was applied over the site prior to removal of drapes. The patient tolerated the procedure well and there were no complications. EBL: minimal Complication: None Surgeon: Shaji Horn Condition: critical Disposition: ICU
[2016-10-17] MEDS: Norepinephrine 4 MG in D5% in Water 250 ML IVC SCH ×3 (09:53→19:51)
[2016-10-17] MEDS ORDERED: Vancomycin 1,250 MG in D5% in Water 250 ML IVPB SCH (10:00)
--- NOTE | 2016-10-17 10:08 | Procedure Note ---
Date of procedure: 10/17/16 Pre-op diagnosis: respiratory failure Post-op diagnosis: same Procedure: Time out was deffered as the procedure was emergent.. The patient was placed in a flat position. Sedation was obtained using . The patient was easily ventilated using an Ambu bag. A GLIDESCOPE MAC 3/ BLADE was used and inserted into the oropharynx at which time there was a Grade 2 view of the vocal cords. A 7.5-arabic endotracheal tube was inserted and visualized going through the vocal cords. The stylette was removed. Colorimetric change was visualized on the CO2 meter. Breath sounds were heard in both lung hutson equally. The endotracheal tube was placed at 23 cm, measured at the lips A chest x-ray was ordered and is pending at this time to assess for pneumothorax and verify endotrachealtube placement. Surgeon: Shaji Horn Pathology: none sent Condition: critical Disposition: ICU
[2016-10-17 10:27] LABS: ABG Base Excess 1.3 mEq/L (-2.0 to 3.0); ABG Oxygen Saturation 99 % (95-98); ABG PH 7.21 pH Units (7.32-7.45); ABG PO2 151 mmHg (85-104); ABG TCO2 32.3 mEq/L (20-26)
[2016-10-17 10:28] LABS: Blood Gas FiO2 100 %; Blood Gas PEEP 8 cm H2O; Blood Gas Respiration Rate 24; Blood Gas VT 400 cc
[2016-10-17 10:29] LABS: ABG PCO2 75 mmHg (35-45)
[2016-10-17] MEDS: FentaNYL (PF) 1,000 MCG in 0.9 % Sodium Chloride 80 ML IVC SCH ×2 (10:34→22:46)
[2016-10-17] MEDS: Vancomycin 1,250 MG in D5% in Water 250 ML IVPB SCH ×2 (10:37→21:08)
[2016-10-17 10:54] LABS: Albumin/Globulin Ratio 0.2 (1.1-2.2); Bilirubin,Direct 0.3 mg/dL (0.0-0.5); Bilirubin,Total 0.3 mg/dL (0.2-1.2); Globulin 4.8 g/dL (2.4-3.5); Total Protein 5.9 g/dL (6.0-8.3)
[2016-10-17 10:55] LABS: Albumin 1.1 g/dL (3.5-5.0)
--- NOTE | 2016-10-17 11:06 | Oncology Inp Progress Note ---
Date of Encounter: 10/17/16 Time of Encounter: 11:00 (1) Adenocarcinoma Current Visit: Yes Status: Chronic (2) Adenocarcinoma, lung Current Visit: Yes Status: Acute Assessment and plan: Pt with metastatic adenocarcinoma of the lung, brain imaging pending with liver metastatic disease extensive, status post biopsy, patient intubated, sedated due to ac on chronic respiratory insufficiency due to multiple etiologies. We discussed his critical condition and short and terminal supervisor prognosis in detail in family meeting (son and Nicki) with ICU attending. Patient had referred to Nicki as his yesterday and floor nurse-but Nicki reports today that she is not yet to him. Patient has children, sister possibly as next of kin. Advanced metastatic malignancy-not started any treatment with progressive disease. He will be DNR in the event of cardiac arrest after discussing code status with family/friend (son and diane). Palliative care consult to help with goals of care. Friend and son in agreement not to continue aggressive measures if he does not show improvement that would prolong his suffering. They will meet with additional family members. Qualifiers: Laterality: left Qualified Code(s): C34.92 - Malignant neoplasm of unspecified part of left bronchus or lung Oncology: Subj Interval history: Patient sedated and intubated this AM. Overnignt events noted. - Constitutional Vitals: Vital Signs Temp Pulse Resp BP Pulse Ox 10/17/16 10:09 24 84/44 93 10/17/16 10:06 97 24 84/44 97 10/17/16 08:40 33 95/63 95 10/17/16 07:51 97.9 F 109 25 98/63 90 10/17/16 05:26 97.9 F 120 26 108/84 92 10/17/16 03:27 22 91 10/17/16 00:51 106 21 90/78 92 10/16/16 23:19 23 94 10/16/16 22:14 97.1 F L 134 36 115/76 91 10/16/16 20:11 28 91 10/16/16 20:00 92 10/16/16 16:38 96.7 F L 112 20 110/75 96 10/16/16 16:34 20 118/82 94 10/16/16 12:04 27 118/82 96 Intake and Output 10/16/16 10/17/16 10/17/16 23:59 07:59 15:59 Intake Total 0 / 0 1020 / 1020 1500 / 1500 Output Total 350 / 350 0 / 0 Balance -350 / -350 1020 / 1020 1500 / 1500 Intake: IV Fluids 1000 / 1000 1500 / 1500 0.9 % Sodium Chloride 1, 1000 / 1000 1000 / 1000 000 ML @ 75 mls/hr IVC . [id number] [facility] Rx#: [id number] ALBURX 5% 12.5 gm In 250 500 / 500 ml @ 60 mls/hr IVPB Q4H [facility] Rx#:[id number] Oral 0 / 0 20 / 20 Output: Urine 350 / 350 0 / 0 Other: Meal Dinner Weight 75.4 kg Patient Weight 10/17/16 23:59 Weight 75.4 kg General appearance: obese - Head Head exam: Present: atraumatic - ENT Additional comments: intubation - Neck Neck exam: Present: normal inspection - Respiratory Respiratory exam: Present: CTAB - Cardiovascular Cardiovascular exam: Present: +S1, +S2 - GI/Abdominal GI/Abdominal exam: Present: distended, soft - Extremities Exam Extremities exam: Present: pedal edema Additional comments: amputation - Neurological Exam Additional comments: sedated, neuro exam not performed Oncology: Obj Data - Labs CBC & Chem 7: 10/17/16 01:42 10/17/16 01:42 Labs: Laboratory Results - last 24 hr 10/16/16 10/16/16 10/17/16 11:58 16:14 01:42 WBC 30.6 H* RBC 4.09 L Hgb 9.1 L Hct 30.9 L MCV 75.6 L MCH 22.2 L MCHC 29.4 L RDW 19.0 H Plt Count 431 H MPV 10.0 Immature Gran % 3.6 Seg Neutrophils % 85.7 Lymphocytes % 2.2 Monocytes % 7.8 Eosinophils % 0.5 Basophils % 0.2 Neutrophils # 26.2 H Lymphocytes # 0.7 Monocytes # 2.4 H Eosinophils # 0.2 Basophils # 0.1 Platelet Estimate Normal Anisocytosis 2+ A Microcytosis Present A PT 15.6 H INR 1.4 ABG pH 7.34 ABG pCO2 60 H ABG pO2 88 ABG HCO3 32.4 H ABG Total CO2 34.2 H ABG O2 Saturation 96 ABG Base Excess 5.3 H Lactate Respiration Rate Blood Gas Modality BIPAP Inspired O2 50 Tidal Volume PEEP Sodium Potassium Chloride Carbon Dioxide BUN Creatinine Est GFR ( Amer) Est GFR (Non-Af Amer) BUN/Creatinine Ratio Glucose Calculated Osmolality Lactic Acid Calcium Total Bilirubin Direct Bilirubin Indirect Bilirubin AST ALT Alkaline Phosphatase Serum Total Protein Albumin Globulin Albumin/Globulin Ratio 10/17/16 10/17/16 10/17/16 01:42 08:50 08:59 WBC RBC Hgb Hct MCV MCH MCHC RDW Plt Count MPV Immature Gran % Seg Neutrophils % Lymphocytes % Monocytes % Eosinophils % Basophils % Neutrophils # Lymphocytes # Monocytes # Eosinophils # Basophils # Platelet Estimate Anisocytosis Microcytosis PT 16.0 H INR 1.5 ABG pH 7.14 L* ABG pCO2 90 H* ABG pO2 218 H ABG HCO3 30.6 H ABG Total CO2 33.4 H ABG O2 Saturation 100 H ABG Base Excess 0.2 Lactate Respiration Rate Blood Gas Modality BIPAP Inspired O2 100 Tidal Volume PEEP Sodium 134 L Potassium 5.8 H Chloride 99 Carbon Dioxide 28 BUN 53 H D Creatinine 1.26 H Est GFR ( Amer) > 60 Est GFR (Non-Af Amer) 59 L BUN/Creatinine Ratio 42 H Glucose 132 H Calculated Osmolality 294 Lactic Acid Calcium 9.0 Total Bilirubin Direct Bilirubin Indirect Bilirubin AST ALT Alkaline Phosphatase Serum Total Protein Albumin Globulin Albumin/Globulin Ratio 10/17/16 10/17/16 10/17/16 08:59 08:59 10:22 WBC RBC Hgb Hct MCV MCH MCHC RDW Plt Count MPV Immature Gran % Seg Neutrophils % Lymphocytes % Monocytes % Eosinophils % Basophils % Neutrophils # Lymphocytes # Monocytes # Eosinophils # Basophils # Platelet Estimate Anisocytosis Microcytosis PT INR ABG pH 7.21 L ABG pCO2 75 H* ABG pO2 151 H ABG HCO3 30.0 H ABG Total CO2 32.3 H ABG O2 Saturation 99 H ABG Base Excess 1.3 Lactate 2.0 Respiration Rate 24 Blood Gas Modality ASSIST CONTROL Inspired O2 100 Tidal Volume 400 PEEP 8 Sodium Potassium Chloride Carbon Dioxide BUN Creatinine Est GFR ( Amer) Est GFR (Non-Af Amer) BUN/Creatinine Ratio Glucose Calculated Osmolality Lactic Acid 2.3 H Calcium Total Bilirubin 0.3 Direct Bilirubin 0.3 Indirect Bilirubin 0.0 AST 73 H ALT 47 Alkaline Phosphatase 833 H Serum Total Protein 5.9 L Albumin 1.1 L Globulin 4.8 H Albumin/Globulin Ratio 0.2 L - Impressions Impressions Chest X-Ray 10/16/16 11:13 IMPRESSION: 1. Persistent bilateral pleural effusions left greater than right. 2. Multifocal airspace disease is seen in both lungs which could represent metastatic disease or a multifocal pneumonia. D/ / 10/16/2016 13:06:57 Morgan Mckeon MD / Odilia Ayers Interpreting Provider: Morgan Mckeon MD Chest X-Ray 10/17/16 10:05 IMPRESSION: 1. Endotracheal tube tip is appropriately positioned, approximately 7 cm above the nalini. 2. Enteric tube tip and side port are within the stomach. 3. Worsening bilateral airspace opacities, left greater than right, with moderate left pleural effusion. D/ / Antony Ortega MD / Antony Ortega MD Interpreting Provider: Antony Ortega MD X-Ray 10/17/16 10:14 IMPRESSION: 1. Endotracheal tube tip is appropriately positioned, approximately 7 cm above the nalini. 2. Enteric tube tip and side port are within the stomach. 3. Worsening bilateral airspace opacities, left greater than right, with moderate left pleural effusion. D/ / Antony Ortega MD / Antony Ortega MD Interpreting Provider: Antony Ortega MD - Imaging and cardiology CT scan - chest Status: image reviewed by me - ABG Interpretation ABG results: ABG ABG pH 7.21 pH Units (7.32-7.45) L 10/17/16 10:22 ABG pCO2 75 mmHg (35-45) H* 10/17/16 10:22 ABG pO2 151 mmHg (85-104) H 10/17/16 10:22 ABG O2 Saturation 99 % (95-98) H 10/17/16 10:22 PT/INR, D-dimer PT 16.0 Seconds (9.4-12.1) H 10/17/16 08:59 D-Dimer 7167 ng/mLFEU (0-500) H 10/13/16 01:55 Consult Discharge Plan - Plan Referrals: Dorys Abraham, GEOSPATIAL IMAGERY INTELLIGENCE ANALYST [Primary Care Provider] - 11/17/16 1:40 pm
[2016-10-17] MEDS: Nicotine 21 MG PATCH.TD24 TD SCH (12:06)
[2016-10-17] MEDS: Aspirin Enteric Coated 81 MG Tablet PO SCH (12:08)
[2016-10-17] MEDS: Cefepime HCl 2,000 MG in D5% in Water (Mini-Bag+) 100 ML IVPB SCH ×3 (12:08→23:01)
[2016-10-17] MEDS: Sennosides/Docusate Sodium TABLET PO SCH ×2 (12:08→20:13)
[2016-10-17] MEDS: predniSONE 20 MG TABLET PO SCH (12:09)
[2016-10-17] MEDS: Folic Acid 1 MG TABLET PO SCH (12:09)
[2016-10-17 13:16] LABS: ABG Base Excess 1.9 mEq/L (-2.0 to 3.0); ABG HCO3 29.6 mEQ/L (21-27); ABG Oxygen Saturation 89 % (95-98); ABG PCO2 66 mmHg (35-45); ABG PH 7.26 pH Units (7.32-7.45); ABG PO2 66 mmHg (85-104); ABG TCO2 31.6 mEq/L (20-26); Blood Gas FiO2 70 %
[2016-10-17 13:17] LABS: Blood Gas PEEP 8 cm H2O
[2016-10-17] MEDS ORDERED: Ringers Solution, Lactated 1,000 ML IVC ONE (13:23)
--- NOTE | 2016-10-17 14:12 | Procedure Note ---
Date of procedure: 10/17/16 Pre-op diagnosis: pleural effusion Post-op diagnosis: same Procedure: A time-out was completed verifying correct patient, procedure, site, positioning , and special equipment if applicable. The patients Left side was prepped and draped in a sterile manner after the appropriate infiltration level was confirmed by ultrasound. 1% lidocaine was used anesthetize the surrounding skin. A finder needle was then used to locate fluid and 10 mL of bloody fluid was obtained. No immediate complications Surgeon: Shaji Horn Pathology: none sent Condition: critical Disposition: ICU
--- NOTE | 2016-10-17 14:16 | Event Note ---
Date of Encounter: 10/17/16 Time of Encounter: 08:00 Evaluated patient this morning. Was and continued respiratory distress and on BiPAP with saturations in the low 80s. Ordered immediate ABG and discussed with pulmonology. Patient was transferred to ICU for further management. Patient appears to be developing worsening of sepsis and respiratory failure. He will need more closer intensive care management and would require endotracheal intubation and mechanical ventilation and may require IV pressor support.
[2016-10-17 16:33] LABS: ABG HCO3 30.9 mEQ/L (21-27); ABG Oxygen Saturation 92 % (95-98); ABG PCO2 60 mmHg (35-45); ABG PH 7.32 pH Units (7.32-7.45); ABG PO2 69 mmHg (85-104); ABG TCO2 32.7 mEq/L (20-26)
[2016-10-17 16:35] LABS: Blood Gas FiO2 60 %
[2016-10-17] MEDS: Pantoprazole 40 MG VIAL IVP SCH (17:02)
[2016-10-17] MEDS: MethylPREDNISolone 40 MG/ML VIAL IVP SCH ×2 (17:02→23:01)
[2016-10-18] MEDS: Norepinephrine 4 MG in D5% in Water 250 ML IVC SCH ×2 (00:11→17:18)
[2016-10-18 03:36] LABS: Hematocrit 24.9 % (37.5-50.1); Mean Corpuscular HGB Conc 29.3 g/dL (31.6-35.5); Mean Corpuscular Hemoglobin 22.3 pg (28.0-33.3); Mean Corpuscular Volume 76.1 fL (83.0-100.0); Nucleated Red Blood Cells 0.3 /100 WBC (0); Platelet Count 421 K/mcL (140-400); Red Blood Count 3.27 M/mcL (4.19-5.50); Red Cell Distribution Width 18.9 % (11.5-14.5)
[2016-10-18 03:41] LABS: Ionized Calcium 1.1 mmol/L (1.15-1.35)
[2016-10-18 03:42] LABS: Hemoglobin 7.3 g/dL (12.9-16.9)
[2016-10-18 03:50] LABS: Albumin/Globulin Ratio 0.3 (1.1-2.2); Bilirubin,Direct 0.3 mg/dL (0.0-0.5); Bilirubin,Indirect 0.1 mg/dL (0.0-1.2); Bilirubin,Total 0.4 mg/dL (0.2-1.2); Calcium 8.3 mg/dL (8.6-10.8); Globulin 4.4 g/dL (2.4-3.5); Magnesium 2.2 mg/dL (1.6-2.6); Phosphorous 5.7 mg/dL (2.3-4.7); Potassium 5.3 mEq/L (3.5-4.5); Total Protein 5.9 g/dL (6.0-8.3)
[2016-10-18 03:51] LABS: Albumin 1.5 g/dL (3.5-5.0)
[2016-10-18 04:03] LABS: ABG Base Excess 2.8 mEq/L (-2.0 to 3.0); ABG HCO3 29.4 mEQ/L (21-27); ABG Oxygen Saturation 94 % (95-98); ABG PCO2 57 mmHg (35-45); ABG PH 7.32 pH Units (7.32-7.45); ABG PO2 77 mmHg (85-104); ABG TCO2 31.1 mEq/L (20-26); Blood Gas FiO2 60 %
[2016-10-18] MEDS: Ipratropium/Albuterol Neb 3 ML IH SCH ×6 (04:21→23:40)
[2016-10-18 04:35] LABS: Lymphocytes # 0.9 K/mcL (0.6-4.6); Monocytes # 1.4 K/mcL (0.0-1.3); Neutrophils # 21.2 K/mcL (1.6-8.9); Platelet Estimate Increased (Normal)
[2016-10-18 04:36] LABS: Anisocytosis 1+ (Not Present)
[2016-10-18] MEDS: MethylPREDNISolone 40 MG/ML VIAL IVP SCH ×4 (05:04→23:30)
[2016-10-18] MEDS: *HR* Enoxaparin 40 MG/0.4 ML SYRINGE SQ SCH (05:04)
[2016-10-18] MEDS: Budesonide/Formoterol 160/4.5 MDI IH SCH ×2 (07:18→19:43)
--- NOTE | 2016-10-18 08:11 | Pulmonology Progress Note ---
Date of Encounter: 10/18/16 Time of Encounter: 08:11 Assessment and Plan (1) Acute and chronic respiratory failure Current Visit: Yes Status: Acute Neuropsych: Intubated and sedated for comfort on vent and improvement respiratory mechanics. Goal Samara 3; Pulm: Acute on chronic hypoxic hypercapnic respiratory failure which appears acutely worsen secondary to pneumonia (wth possible ARDS) this is complicated by underlying lung cancer with lymphangitic spread malignant pleural effusion and COPD. better oxygenation and ventilation today continue low tidal volume ventilation strategy with permissive hypercapnia employed on pressure control ventilation. He will likely need smallbore chest tube for Pleurx catheter placement early part of this week. Ventilator bundle to prevent ventilator associated pneumonia implemented Cards: Distributive shock physiology secondary to sepsis improving goal MAP greater than 60 lactate has normalized FEN-GI: Nothing by mouth for now PPI prophylaxis given Renal: Anuric RONDA the setting of sepsis and shock I did discuss the case with the fiberglass container winding operator and there is no acute indication for dialysis but this may need to be considered in the upcoming days depending on the level of aggressiveness pursued by healthcare proxies he has a Pitts catheter for strict I/Os mngt. Renal Ultrasound today ID: Sepsis with shock physiology on broad-spectrum antimicrobials to cover for healthcare associated organisms patient has been recultured including blood sputum pleural fluid and urine this far cultures are negative encouragingly leukocytosis is trending down Heme/Onc: DVT prophylaxis given with low molecular weight heparin hemoglobin and platelets are stable but there was a 2 g drop in hemoglobin overnight this is likely related to critical illness repeat H&H shows stability there is no overt signs of bleeding we will continue to monitor this and repeat CBC in the evening transfusion goal Hgb greater than 7 Endo: Glucose monitored Integ/MSK: Skin care per routine ICU protocol to prevent ulcers all lines were examined without evidence of infection CODE: DNAR I updated the son at bedside; Palliative care has been consulted to address comfort and goals of care; prognosis is very poor Qualifiers: Respiratory failure complication: hypoxia and hypercapnia Qualified Code(s) : J96.21 - Acute and chronic respiratory failure with hypoxia; J96.22 - Acute and chronic respiratory failure with hypercapnia (2) KAVITHA (obstructive sleep apnea) Current Visit: No Status: Acute (3) Acute exacerbation of chronic obstructive airways disease Current Visit: Yes Status: Acute Agree with use of steroids for two-week taper continue bronchodilators as scheduled meter dose inhaler (Symbicort) (4) Metastatic lung cancer (metastasis from lung to other site) Current Visit: Yes Status: Acute Oncology should be consulted to discuss patient about timing of chemotherapy he seems to be more receptive to this at this time Qualifiers: Laterality: unspecified laterality Qualified Code(s): C34.90 - Malignant neoplasm of unspecified part of unspecified bronchus or lung (5) Pneumonia Current Visit: Yes Status: Acute I would de-escalate to respiratory fluoroquinolone to complete 5 day course Qualifiers: Pneumonia type: due to unspecified organism Laterality: bilateral Lung location: unspecified part of lung Qualified Code(s): J18.9 - Pneumonia, unspecified organism (6) Pleural effusion Current Visit: Yes Status: Acute (7) DVT prophylaxis Current Visit: No Status: Acute Continue chemical DVT prophylaxis with low molecular weight heparin if no other contraindication exist Subjective Principal diagnosis: Pneumonia Interval history: There have been some improvement in shock physiology overnight he was able to be weaned off vasopressor support. Unfortunately his urine output remains very minimal. Objective PUL Vital signs: Last Vital Signs Temp 97.2 F L 10/18/16 07:51 Pulse 100 10/18/16 07:47 Resp 28 10/18/16 07:47 BP 97/62 10/18/16 07:47 Pulse Ox 94 10/18/16 07:47 General appearance: other (Sedated on vent) Auscultation: left: diminished breath sounds, bilateral: rhonchi Cardiovascular: regular rate and rhythm Gastrointestinal: normoactive bowel sounds, soft Integumentary: normal Extremities: pink and warm pupils equal and round Ventilator Settings Ventilator Settings: Ventilator Settings, Last 8 Hours Ventilator Mode PC Ventilator Mode PC Ventilator Mode PC Ventilator Mode PC Ventilator Mode PC Ventilator Mode PC Ventilator Mode PC Ventilator Mode PC Ventilator Mode PC Ventilator Mode PC Ventilator Tidal Volume 28 Setting Ventilator Tidal Volume 28 Setting Ventilator Tidal Volume 28 Setting Ventilator Tidal Volume 28 Setting Ventilator Tidal Volume 28 Setting Ventilator Tidal Volume 28 Setting Ventilator Tidal Volume 28 Setting Ventilator Tidal Volume 28 Setting Ventilator Tidal Volume 28 Setting Ventilator Tidal Volume 28 Setting Ventilator Respiratory Rate 28 Setting Ventilator Respiratory Rate 28 Setting Ventilator Respiratory Rate 28 Setting Ventilator Respiratory Rate 28 Setting Ventilator Respiratory Rate 28 Setting Ventilator Respiratory Rate 28 Setting Ventilator Respiratory Rate 28 Setting Ventilator Respiratory Rate 28 Setting Ventilator Respiratory Rate 28 Setting Ventilator Respiratory Rate 28 Setting Actual Respiratory Rate 28 Actual Respiratory Rate 28 Actual Respiratory Rate 28 Actual Respiratory Rate 28 Actual Respiratory Rate 28 Actual Respiratory Rate 28 Actual Respiratory Rate 28 Positive End Expiratory 10 Pressure Positive End Expiratory 10 Pressure Positive End Expiratory 10 Pressure Positive End Expiratory 10 Pressure Positive End Expiratory 10 Pressure Positive End Expiratory 10 Pressure Positive End Expiratory 10 Pressure Positive End Expiratory 10 Pressure Positive End Expiratory 10 Pressure Positive End Expiratory 10 Pressure Peak Inspiratory Airway 38 Pressure Peak Inspiratory Airway 38 Pressure Peak Inspiratory Airway 38 Pressure Peak Inspiratory Airway 38 Pressure Peak Inspiratory Airway 38 Pressure Results - Laboratory Findings CBC and BMP: 10/18/16 09:15 10/18/16 03:15 ABG ABG pH 7.32 pH Units (7.32-7.45) 10/18/16 03:52 ABG pCO2 57 mmHg (35-45) H 10/18/16 03:52 ABG pO2 77 mmHg (85-104) L 10/18/16 03:52 ABG O2 Saturation 94 % (95-98) L 10/18/16 03:52 PT/INR, D-dimer PT 16.0 Seconds (9.4-12.1) H 10/17/16 08:59 D-Dimer 7167 ng/mLFEU (0-500) H 10/13/16 01:55 Abnormal lab findings: Abnormal lab results WBC 23.6 K/mcL (4.3-11.1) H 10/18/16 03:15 RBC 3.27 M/mcL (4.19-5.50) L 10/18/16 03:15 Hgb 7.3 g/dL (12.9-16.9) L D 10/18/16 03:15 Hct 24.9 % (37.5-50.1) L 10/18/16 03:15 MCV 76.1 fL (83.0-100.0) L 10/18/16 03:15 MCH 22.3 pg (28.0-33.3) L 10/18/16 03:15 MCHC 29.3 g/dL (31.6-35.5) L 10/18/16 03:15 RDW 18.9 % (11.5-14.5) H 10/18/16 03:15 Plt Count 421 K/mcL (140-400) H 10/18/16 03:15 Band Neutrophils % 12.0 % (0-4) H 10/18/16 03:15 Neutrophils # 21.2 K/mcL (1.6-8.9) H 10/18/16 03:15 Monocytes # 1.4 K/mcL (0.0-1.3) H 10/18/16 03:15 Nucleated RBCs/100 WBC 0.3 /100 WBC (0) H 10/18/16 03:15 Reactive Lymphocytes Present (Not Present) A 10/13/16 01:55 Smudge Cells Present (Not Present) A 10/13/16 01:55 Platelet Estimate Increased (Normal) H 10/18/16 03:15 Anisocytosis 1+ (Not Present) A 10/18/16 03:15 Microcytosis Present (Not Present) A 10/17/16 01:42 PT 16.0 Seconds (9.4-12.1) H 10/17/16 08:59 D-Dimer 7167 ng/mLFEU (0-500) H 10/13/16 01:55 ABG pCO2 57 mmHg (35-45) H 10/18/16 03:52 ABG pO2 77 mmHg (85-104) L 10/18/16 03:52 ABG HCO3 29.4 mEQ/L (21-27) H 10/18/16 03:52 ABG Total CO2 31.1 mEq/L (20-26) H 10/18/16 03:52 ABG O2 Saturation 94 % (95-98) L 10/18/16 03:52 Sodium 132 mEq/L (136-145) L 10/18/16 03:15 Potassium 5.3 mEq/L (3.5-4.5) H 10/18/16 03:15 Chloride 97 mEq/L (98-109) L 10/18/16 03:15 BUN 67 mg/dL (8-26) H D 10/18/16 03:15 Creatinine 2.18 mg/dL (0.72-1.25) H D 10/18/16 03:15 Est GFR ( Amer) 38 (> 60) L 10/18/16 03:15 Est GFR (Non-Af Amer) 32 (> 60) L 10/18/16 03:15 BUN/Creatinine Ratio 31 (6-26) H 10/18/16 03:15 Glucose 150 mg/dL (70-99) H 10/18/16 03:15 POC Glucose 125 (58-89) H 10/17/16 11:56 Calcium 8.3 mg/dL (8.6-10.8) L 10/18/16 03:15 Ionized Calcium 1.10 mmol/L (1.15-1.35) L 10/18/16 03:15 Phosphorus 5.7 mg/dL (2.3-4.7) H 10/18/16 03:15 AST 210 Units/L (5-34) H 10/18/16 03:15 ALT 69 Units/L (0-55) H 10/18/16 03:15 Alkaline Phosphatase 646 Units/L (38-126) H 10/18/16 03:15 Lactate Dehydrogenase 572 Units/L (159-327) H 10/14/16 05:46 Serum Total Protein 5.9 g/dL (6.0-8.3) L 10/18/16 03:15 Albumin 1.5 g/dL (3.5-5.0) L D 10/18/16 03:15 Globulin 4.4 g/dL (2.4-3.5) H 10/18/16 03:15 Albumin/Globulin Ratio 0.3 (1.1-2.2) L 10/18/16 03:15 Lipase 110 Units/L (8-78) H 10/13/16 01:55 Pleural Appearance Bloody (Clear) A 10/14/16 11:14 Pleural RBC 0.047 M/mcL (0.000-0.002) H 10/14/16 11:14 - Microbiology Findings Microbiology Findings: Microbiology, Last 48 Hours 10/13/16 05:43 Blood Culture - Final Peripheral Venipuncture No growth. 10/17/16 14:00 Body Fluid Culture - Preliminary Pleural Fluid 10/17/16 14:00 Gram Stain - Final Pleural Fluid 10/17/16 15:20 Sputum Culture - Preliminary Sputum 10/14/16 11:14 Body Fluid Culture - Final Pleural Fluid 10/14/16 11:14 Anaerobic Culture - Preliminary Pleural Fluid At this time, no anaerobic growth is present. The culture will be finalized after 5 days of incubation. 10/14/16 01:10 Sputum Culture - Final Sputum - Clinical Findings Intake & Output: Intake & Output 10/17/16 10/18/16 10/18/16 23:59 07:59 15:59 Intake Total 1050 / 1050 575 / 575 Output Total 115 / 115 160 / 160 Balance 935 / 935 415 / 415 Weight 81.193 kg Consult Discharge Plan - Plan Referrals: Dorys Abraham CNP [Primary Care Provider] - 11/17/16 1:40 pm
--- NOTE | 2016-10-18 08:43 | Palliative - Consult Note ---
Date of Encounter: 10/18/16 Time of Encounter: 08:30 - Assessment and Plan (1) Pain Current Visit: Yes Status: Acute Assessment and plan: Patient appears at this time to be quite comfortable is on medications for pain continue current meds. (2) Goals of care, counseling/discussion Current Visit: Yes Status: Acute Assessment and plan: Pulmonary has been keeping family well-informed, patient is currently DNR CCA and attempted to reach patient's son DJ without any response thus far continue to contact family to discuss further goals of care and for today is to just see how he does with current therapy probably will follow-up tomorrow with further conversations. (3) COPD exacerbation Current Visit: Yes Status: Acute Assessment and plan: Currently on ventilator being followed by pulmonary plan per pulmonary (4) Sepsis Current Visit: No Status: Resolved Assessment and plan: On antibiotics white blood cell count continues to be elevated blood pressure continues to be low. Cultures appear negative thus far, but discussion with pulmonary team reveals that they feel the patient does have a pneumonia and this is the source of the abscess. Qualifiers: Sepsis type: sepsis due to unspecified organism Qualified Code(s): A41.9 - Sepsis, unspecified organism (5) Adenocarcinoma, lung Current Visit: Yes Status: Acute Assessment and plan: Per oncology notes this appears to be possibly amenable to immunotherapy, however the patient will have to recover from this acute event before been therapy can be considered. We will discuss further with patient's family. Qualifiers: Laterality: left Qualified Code(s): C34.92 - Malignant neoplasm of unspecified part of left bronchus or lung Palliative-CN HPI - Data of Consult Patient: new to practice Requesting Physician: Shanta Matias MD Primary Care Provider: Dorys Abraham CNP - Consult Narrative Palliative Care/Comfort Measures: Palliative care Reason for consult: Goals of care History of present illness: Mr. Hernandez is a 56 year old male With a history of metastatic non-small cell lung cancer recently diagnosed with a liver biopsy approximately a month ago. Patient has not had a chance to start any chemotherapy, however was felt that he would be amenable to immunotherapy. Patient has been having increasing shortness of breath and a nonproductive cough anorexia dehydration and abdominal pain for 2-3 days prior to admission. Vision it was felt the patient had sepsis well as a pleural effusion and it was felt that this was an active pneumonia the patient has been treated aggressively for pneumonia. The patient did however compensate yesterday. Resulting in the patient being intubated patient has been intubated and has been having trouble with hypotension. Patient is currently sedated on a ventilator with no family present all of the history is obtained from the medical record. The patient appears comfortable at this time. Palliative care was consulted in that the patient does have metastatic lung cancer but it appeared that it may be amenable to a medium therapy, her consulted regarding holes of care with the patient's pneumonia and sepsis getting worse. CC: Shanta Matias MD sob Past Med Surg Social Fam HX - Past Medical History Medical history: cancer, COPD, coronary artery disease, hyperlipidemia, hypertension, myocardial infarction, other Psychiatric history: anxiety - Past Surgical History Surgical History: other - Social History Smoking Status: Former smoker Smokeless Tobacco Status: No Alcohol use: occasionally Drug use: marijuana - Family History Mother Family Member Ethnicity: Non- Living Status: Still Living Hx Family Respiratory Disorders: Yes Father Family Member Ethnicity: Non- Living Status: Hx Family Cardiac Disorders: Yes (Brain aneurysm) Sister Family Member Ethnicity: Non- Living Status: Still Living Hx Family Cancer: Yes (Breast) Medications and Allergies Albuterol Sulfate [Proair Hfa] 2 puff IH Q6H PRN 09/13/16 [History] Aspirin [Lo-Dose Aspirin EC] 243 mg PO DAILY 09/13/16 [History] Atorvastatin Calcium [Lipitor] 80 mg PO DAILY 09/13/16 [History] Clopidogrel [Plavix] 75 mg PO DAILY 09/13/16 [History] Lisinopril [Zestril] 10 mg PO DAILY 09/13/16 [History] Albuterol Neb [Proventil Neb] 2.5 mg IH Q2H PRN 30 Days 09/17/16 [Rx] Ferrous Sulfate 325 mg PO BIDWM 30 Days 09/17/16 [Rx] OxyCODONE/APAP 7.5/325 [Percocet 7.5/325 MG] 1 each PO Q6HR PRN #60 tablet 09/17 [Rx] Oxygen 3 l NS AD 09/20/16 [History] Citalopram [CeleXA] 10 mg PO DAILY #30 tablet 09/23/16 [Rx] Metoprolol XL (24 HR) Succ [Toprol Xl] 50 mg PO DAILY #30 tab.er.24h 09/23/16 [ Rx] Furosemide [Lasix] 20 mg PO DAILY #10 tablet 09/28/16 [Rx] Folic Acid 1 mg PO DAILY #90 tablet 10/01/16 [Rx] Allergies No Known Allergies Allergy (Verified 10/01/16 15:10) ROS unobtainable: due to mental status Palliative Care-Exam - Constitutional Vitals: Temp Pulse Resp BP Pulse Ox 97.2 F L 100 28 97/62 94 10/18/16 07:51 10/18/16 07:47 10/18/16 07:47 10/18/16 07:47 10/18/16 07:47 General appearance: Present: no acute distress (But is intubated on vent), obese - Head Head Exam: Present: atraumatic, normal inspection - Eye Eye exam: Present: normal appearance - ENT ENT exam: Present: mucous membranes moist (Endotracheal tube in place) - Respiratory Respiratory exam: Present: decreased breath sounds, rhonchi (On ventilator) - Cardiovascular Cardiovascular exam: Present: RRR - GI/Abdominal Exam GI/Abdominal exam: Present: diminished bowel sounds, distended. Absent: tenderness (Positive tympany) - Catheter Type: Urethral (Pitts) - Extremities Exam Extremities exam: Present: pedal edema (Trace) - Neurological Exam Neurological exam: Present: altered (Sedated, on vent) - Psychiatric Psychiatric exam: Absent: agitated, anxious (sedated on vent) - Skin Skin exam: Present: dry, warm Internal Medicine - CN: Reslt - Labs CBC & Chem 7: 10/18/16 03:15 10/18/16 03:15 Labs: Short CBC 10/18/16 Range/Units 03:15 WBC 23.6 H (4.3-11.1) K/mcL Hgb 7.3 L D (12.9-16.9) g/dL Hct 24.9 L (37.5-50.1) % Plt Count 421 H (140-400) K/mcL Neutrophils # 21.2 H (1.6-8.9) K/mcL BMP 10/18/16 03:15 Sodium 132 L Potassium 5.3 H Chloride 97 L Carbon Dioxide 29 BUN 67 H D Creatinine 2.18 H D Glucose 150 H Calcium 8.3 L Liver Function 10/17/16 10/18/16 Range/Units 08:59 03:15 Total Bilirubin 0.3 0.4 (0.2-1.2) mg/dL Direct Bilirubin 0.3 0.3 (0.0-0.5) mg/dL AST 73 H 210 H (5-34) Units/L ALT 47 69 H (0-55) Units/L Alkaline Phosphatase 833 H 646 H (38-126) Units/L Albumin 1.1 L 1.5 L D (3.5-5.0) g/dL - ABG Interpretation ABG results: ABG ABG pH 7.32 pH Units (7.32-7.45) 10/18/16 03:52 ABG pCO2 57 mmHg (35-45) H 10/18/16 03:52 ABG pO2 77 mmHg (85-104) L 10/18/16 03:52 ABG O2 Saturation 94 % (95-98) L 10/18/16 03:52 PT/INR, D-dimer PT 16.0 Seconds (9.4-12.1) H 10/17/16 08:59 D-Dimer 7167 ng/mLFEU (0-500) H 10/13/16 01:55 - Impressions Impressions Chest X-Ray 10/17/16 10:05 IMPRESSION: 1. Endotracheal tube tip is appropriately positioned, approximately 7 cm above the nalini. 2. Enteric tube tip and side port are within the stomach. 3. Worsening bilateral airspace opacities, left greater than right, with moderate left pleural effusion. D/ / Antony Ortega MD / Antony Ortega MD Interpreting Provider: Antony Ortega MD X-Ray 10/17/16 10:14 IMPRESSION: 1. Endotracheal tube tip is appropriately positioned, approximately 7 cm above the nalini. 2. Enteric tube tip and side port are within the stomach. 3. Worsening bilateral airspace opacities, left greater than right, with moderate left pleural effusion. D/ / Antony Ortega MD / Antony Ortega MD Interpreting Provider: Antony Ortega MD Consult Discharge Plan - Plan Referrals: Dorys Abraham MET[employer] FABRICATOR WELDER [Primary Care Provider] - 11/17/16 1:40 pm Palliative Quality Palliative Quality: Screen for Code Status: Yes, Screen for Goals of Care: Yes, Screen for Pain: Yes, If Pain Regimen Started, Initiate Bowel Regimen: Yes, Screen for Nausea/Vomitting: Yes Code Status: 10/13/16 05:01 Resuscitation Status: Active [RES] Routine Comment: Resuscitation Status: Full Code 10/17/16 10:35 CODE [Resuscitation Status: Active] [RES] Routine Comment: Resuscitation Status: DNR-Comfort Care-Arrest
[2016-10-18] MEDS: Sennosides/Docusate Sodium TABLET PO SCH ×2 (09:02→20:02)
[2016-10-18] MEDS: Aspirin Enteric Coated 81 MG Tablet PO SCH (09:02)
[2016-10-18] MEDS: Nicotine 21 MG PATCH.TD24 TD SCH (09:02)
[2016-10-18] MEDS: Folic Acid 1 MG TABLET PO SCH (09:02)
[2016-10-18] MEDS: Pantoprazole 40 MG VIAL IVP SCH (09:02)
[2016-10-18] MEDS: Cefepime HCl 2,000 MG in D5% in Water (Mini-Bag+) 100 ML IVPB SCH ×2 (09:03→20:02)
[2016-10-18 09:20] LABS: Hematocrit 24.2 % (37.5-50.1); Hemoglobin 7.1 g/dL (12.9-16.9); Immature Platelets 3.7 % (1.1-6.1); Mean Corpuscular HGB Conc 29.3 g/dL (31.6-35.5); Mean Corpuscular Hemoglobin 22.3 pg (28.0-33.3); Mean Corpuscular Volume 76.1 fL (83.0-100.0); Red Blood Count 3.18 M/mcL (4.19-5.50)
[2016-10-18 11:14] LABS: Bilirubin,Urine Small (Negative); Blood,Urine Negative (Negative); Clarity,Urine Cloudy (Clear); Color,Urine Dark Yellow (Yellow); Glucose,Urine (UA) Normal (Normal); Ketones,Urine Trace mg/dL (Negative); Leukocyte Esterase,Urine Negative (Negative); Nitrite,Urine Negative (Negative); Protein,Urine 30 mg/dL (Neg-Trace); Specific Gravity,Urine 1.028 (1.010-1.025); Urobilinogen,Urine Normal (Normal)
[2016-10-18 11:17] LABS: Bacteria,Urine None Seen per hpf (None-Few); RBC,Urine 0-3 per hpf (0-3); Squamous Epithelial Cell,Urine Many per lpf (None-Few)
[2016-10-18] MEDS: Vancomycin 1,250 MG in D5% in Water 250 ML IVPB SCH (11:50)
[2016-10-18] MEDS ORDERED: 0.9 % Sodium Chloride 500 ML ONE ×2 (11:58→13:55)
[2016-10-18] MEDS ORDERED: Vancomycin 1,250 MG in D5% in Water 250 ML IVPB SCH (12:00)
[2016-10-18] MEDS: FentaNYL (PF) 1,000 MCG in 0.9 % Sodium Chloride 80 ML IVC SCH ×2 (12:48→22:52)
[2016-10-18 13:03] LABS: Hyaline Casts,Urine None Seen per lpf (None-Few)
[2016-10-18 17:02] LABS: Basophils % 0.1 %; Hemoglobin 7.4 g/dL (12.9-16.9); Lymphocytes % 1.4 %; Monocytes % 4.8 %; Nucleated Red Blood Cells 0.2 /100 WBC (0)
[2016-10-18 17:05] LABS: Hematocrit 24.7 % (37.5-50.1); Immature Platelets 3.8 % (1.1-6.1); Lymphocytes # 0.4 K/mcL (0.6-4.6); Mean Corpuscular Hemoglobin 22.9 pg (28.0-33.3); Mean Corpuscular Volume 76.5 fL (83.0-100.0); Mean Platelet Volume 10.2 fL (9.4-12.4); Monocytes # 1.4 K/mcL (0.0-1.3); Neutrophils # 26.7 K/mcL (1.6-8.9); Platelet Count 451 K/mcL (140-400); Red Blood Count 3.23 M/mcL (4.19-5.50); Segmented Neutrophils % 90.7 %
[2016-10-18 17:14] LABS: Calcium 8.4 mg/dL (8.6-10.8); Phosphorous 7.2 mg/dL (2.3-4.7); Potassium 5.8 mEq/L (3.5-4.5)
[2016-10-18 17:15] LABS: Albumin 1.5 g/dL (3.5-5.0)
[2016-10-18 17:24] LABS: Platelet Estimate Increased (Normal)
[2016-10-18] MEDS: levoFLOXacin 750 MG TABLET PO SCH (19:31)
[2016-10-18] MEDS: 0.9 % Sodium Chloride 1,000 ML IVC SCH (19:31)
[2016-10-18] MEDS: Chlorhexidine Rinse 15 ML MOUTHWASH MM SCH (20:02)
[2016-10-19] MEDS: Ipratropium/Albuterol Neb 3 ML IH SCH ×5 (03:18→19:41)
[2016-10-19 04:19] LABS: Ionized Calcium 1.02 mmol/L (1.15-1.35)
[2016-10-19 04:22] LABS: Basophils % 0.1 %; Hemoglobin 7.4 g/dL (12.9-16.9); Lymphocytes % 1.1 %
[2016-10-19 04:23] LABS: Immature Granulocytes % 2.8 % (0-4); Lymphocytes # 0.4 K/mcL (0.6-4.6); Mean Corpuscular HGB Conc 29.6 g/dL (31.6-35.5); Mean Corpuscular Hemoglobin 22.6 pg (28.0-33.3); Mean Corpuscular Volume 76.5 fL (83.0-100.0); Mean Platelet Volume 10.4 fL (9.4-12.4); Monocytes # 1.9 K/mcL (0.0-1.3); Neutrophils # 28.3 K/mcL (1.6-8.9); Nucleated Red Blood Cells 0.1 /100 WBC (0); Platelet Count 445 K/mcL (140-400); Red Blood Count 3.27 M/mcL (4.19-5.50); Red Cell Distribution Width 19.2 % (11.5-14.5)
[2016-10-19 04:30] LABS: Albumin/Globulin Ratio 0.3 (1.1-2.2); Bilirubin,Direct 0.4 mg/dL (0.0-0.5); Bilirubin,Total 0.4 mg/dL (0.2-1.2); Calcium 8.3 mg/dL (8.6-10.8); Globulin 5.1 g/dL (2.4-3.5); Magnesium 2.4 mg/dL (1.6-2.6); Phosphorous 7.9 mg/dL (2.3-4.7); Potassium 6.3 mEq/L (3.5-4.5); Total Protein 6.5 g/dL (6.0-8.3)
[2016-10-19 04:31] LABS: Albumin 1.4 g/dL (3.5-5.0)
[2016-10-19 04:49] LABS: Anisocytosis 1+ (Not Present); Hypochromasia Present (Not Present); Platelet Estimate Normal (Normal)
[2016-10-19] MEDS: *HR* Enoxaparin 40 MG/0.4 ML SYRINGE SQ SCH (05:00)
[2016-10-19] MEDS: MethylPREDNISolone 40 MG/ML VIAL IVP SCH (05:00)
[2016-10-19 05:36] LABS: ABG Base Excess -3.3 mEq/L (-2.0 to 3.0); ABG HCO3 23.8 mEQ/L (21-27); ABG Oxygen Saturation 95 % (95-98); ABG PCO2 53 mmHg (35-45); ABG PH 7.26 pH Units (7.32-7.45); ABG PO2 86 mmHg (85-104); ABG TCO2 25.4 mEq/L (20-26)
[2016-10-19 05:38] LABS: Blood Gas FiO2 70 %
--- NOTE | 2016-10-19 07:51 | Pulmonology Consult Note ---
Date of Encounter: 10/19/16 Time of Encounter: 07:50 Past Med Surg Social Fam HX - Past Medical History Medical history: cancer, COPD, coronary artery disease, hyperlipidemia, hypertension, myocardial infarction, other Psychiatric history: anxiety - Past Surgical History Surgical History: other - Social History Smoking Status: Former smoker Smokeless Tobacco Status: No Alcohol use: occasionally Drug use: marijuana - Family History Mother Family Member Ethnicity: Non- Living Status: Still Living Hx Family Respiratory Disorders: Yes Father Family Member Ethnicity: Non- Living Status: Hx Family Cardiac Disorders: Yes (Brain aneurysm) Sister Family Member Ethnicity: Non- Living Status: Still Living Hx Family Cancer: Yes (Breast) Medications and Allergies Albuterol Sulfate [Proair Hfa] 2 puff IH Q6H PRN 09/13/16 [History] Aspirin [Lo-Dose Aspirin EC] 243 mg PO DAILY 09/13/16 [History] Atorvastatin Calcium [Lipitor] 80 mg PO DAILY 09/13/16 [History] Clopidogrel [Plavix] 75 mg PO DAILY 09/13/16 [History] Lisinopril [Zestril] 10 mg PO DAILY 09/13/16 [History] Albuterol Neb [Proventil Neb] 2.5 mg IH Q2H PRN 30 Days 09/17/16 [Rx] Ferrous Sulfate 325 mg PO BIDWM 30 Days 09/17/16 [Rx] OxyCODONE/APAP 7.5/325 [Percocet 7.5/325 MG] 1 each PO Q6HR PRN #60 tablet 09/17 [Rx] Oxygen 3 l NS AD 09/20/16 [History] Citalopram [CeleXA] 10 mg PO DAILY #30 tablet 09/23/16 [Rx] Metoprolol XL (24 HR) Succ [Toprol Xl] 50 mg PO DAILY #30 tab.er.24h 09/23/16 [ Rx] Furosemide [Lasix] 20 mg PO DAILY #10 tablet 09/28/16 [Rx] Folic Acid 1 mg PO DAILY #90 tablet 10/01/16 [Rx] Allergies No Known Allergies Allergy (Verified 10/01/16 15:10) All Systems: A 10-system review of systems was performed and is negative for pertinent findings except as documented above in the HPI. Physical Examination Vital Signs: Vital Signs, Last 4 Hours Temp Pulse Resp BP Pulse Ox 10/19/16 07:31 97.8 F 10/19/16 07:00 99 28 81/57 94 10/19/16 06:17 28 90/56 94 10/19/16 06:00 106 28 93/67 97 10/19/16 05:13 97.6 F 10/19/16 05:00 103 28 100/68 94 10/19/16 04:00 98 28 101/67 97 Ventilator Settings Ventilator Settings: Ventilator Settings, Last 8 Hours Ventilator Mode PC Ventilator Mode PC Ventilator Mode PC Ventilator Mode PC Ventilator Mode PC Ventilator Mode PC Ventilator Tidal Volume 28 Setting Ventilator Tidal Volume 28 Setting Ventilator Tidal Volume 28 Setting Ventilator Tidal Volume 28 Setting Ventilator Respiratory Rate 28 Setting Ventilator Respiratory Rate 28 Setting Ventilator Respiratory Rate 28 Setting Ventilator Respiratory Rate 28 Setting Ventilator Respiratory Rate 28 Setting Ventilator Respiratory Rate 28 Setting Actual Respiratory Rate 28 Actual Respiratory Rate 28 Actual Respiratory Rate 28 Actual Respiratory Rate 29 Actual Respiratory Rate 28 Positive End Expiratory 10 Pressure Positive End Expiratory 10 Pressure Positive End Expiratory 10 Pressure Positive End Expiratory 10 Pressure Positive End Expiratory 10 Pressure Positive End Expiratory 10 Pressure Peak Inspiratory Airway 38 Pressure Peak Inspiratory Airway 38 Pressure Peak Inspiratory Airway 38 Pressure Peak Inspiratory Airway 38 Pressure Peak Inspiratory Airway 38 Pressure Results - Laboratory Findings CBC and BMP: 10/19/16 04:01 10/19/16 04:01 ABG ABG pH 7.26 pH Units (7.32-7.45) L 10/19/16 05:33 ABG pCO2 53 mmHg (35-45) H 10/19/16 05:33 ABG pO2 86 mmHg (85-104) 10/19/16 05:33 ABG O2 Saturation 95 % (95-98) 10/19/16 05:33 PT/INR, D-dimer PT 16.0 Seconds (9.4-12.1) H 10/17/16 08:59 D-Dimer 7167 ng/mLFEU (0-500) H 10/13/16 01:55 Abnormal lab findings: Abnormal lab results WBC 31.4 K/mcL (4.3-11.1) H* 10/19/16 04:01 RBC 3.27 M/mcL (4.19-5.50) L 10/19/16 04:01 Hgb 7.4 g/dL (12.9-16.9) L 10/19/16 04:01 Hct 25.0 % (37.5-50.1) L 10/19/16 04:01 MCV 76.5 fL (83.0-100.0) L 10/19/16 04:01 MCH 22.6 pg (28.0-33.3) L 10/19/16 04:01 MCHC 29.6 g/dL (31.6-35.5) L 10/19/16 04:01 RDW 19.2 % (11.5-14.5) H 10/19/16 04:01 Plt Count 445 K/mcL (140-400) H 10/19/16 04:01 Band Neutrophils % 12.0 % (0-4) H 10/18/16 03:15 Neutrophils # 28.3 K/mcL (1.6-8.9) H 10/19/16 04:01 Lymphocytes # 0.4 K/mcL (0.6-4.6) L 10/19/16 04:01 Monocytes # 1.9 K/mcL (0.0-1.3) H 10/19/16 04:01 Nucleated RBCs/100 WBC 0.1 /100 WBC (0) H 10/19/16 04:01 Reactive Lymphocytes Present (Not Present) A 10/13/16 01:55 Smudge Cells Present (Not Present) A 10/13/16 01:55 Hypochromasia Present (Not Present) A 10/19/16 04:01 Anisocytosis 1+ (Not Present) A 10/19/16 04:01 Microcytosis Present (Not Present) A 10/17/16 01:42 PT 16.0 Seconds (9.4-12.1) H 10/17/16 08:59 D-Dimer 7167 ng/mLFEU (0-500) H 10/13/16 01:55 ABG pH 7.26 pH Units (7.32-7.45) L 10/19/16 05:33 ABG pCO2 53 mmHg (35-45) H 10/19/16 05:33 ABG Base Excess -3.3 mEq/L (-2.0 to 3.0) L 10/19/16 05:33 Sodium 132 mEq/L (136-145) L 10/19/16 04:01 Potassium 6.3 mEq/L (3.5-4.5) H 10/19/16 04:01 Chloride 97 mEq/L (98-109) L 10/19/16 04:01 BUN 88 mg/dL (8-26) H 10/19/16 04:01 Creatinine 3.74 mg/dL (0.72-1.25) H 10/19/16 04:01 Est GFR ( Amer) 21 (> 60) L 10/19/16 04:01 Est GFR (Non-Af Amer) 17 (> 60) L 10/19/16 04:01 Glucose 104 mg/dL (70-99) H 10/19/16 04:01 POC Glucose 125 (58-89) H 10/17/16 11:56 Calculated Osmolality 301 (280-300) H 10/19/16 04:01 Calcium 8.3 mg/dL (8.6-10.8) L 10/19/16 04:01 Ionized Calcium 1.02 mmol/L (1.15-1.35) L 10/19/16 04:01 Phosphorus 7.9 mg/dL (2.3-4.7) H 10/19/16 04:01 AST 224 Units/L (5-34) H 10/19/16 04:01 ALT 86 Units/L (0-55) H 10/19/16 04:01 Alkaline Phosphatase 696 Units/L (38-126) H 10/19/16 04:01 Lactate Dehydrogenase 572 Units/L (159-327) H 10/14/16 05:46 Albumin 1.4 g/dL (3.5-5.0) L 10/19/16 04:01 Globulin 5.1 g/dL (2.4-3.5) H 10/19/16 04:01 Albumin/Globulin Ratio 0.3 (1.1-2.2) L 10/19/16 04:01 Lipase 110 Units/L (8-78) H 10/13/16 01:55 Urine Clarity Cloudy (Clear) A 10/18/16 11:07 Ur Specific [place] 1.028 (1.010-1.025) H 10/18/16 11:07 Urine Protein 30 mg/dL (Neg-Trace) H 10/18/16 11:07 Urine Ketones Trace mg/dL (Negative) H 10/18/16 11:07 Urine Bilirubin Small (Negative) H 10/18/16 11:07 Urine Microscopic WBC 3-5 per hpf (0-3) H 10/18/16 11:07 Ur Squamous Epith Cells Many per lpf (None-Few) H 10/18/16 11:07 Pleural Appearance Bloody (Clear) A 10/14/16 11:14 Pleural RBC 0.047 M/mcL (0.000-0.002) H 10/14/16 11:14 - Microbiology Findings Microbiology Findings: Microbiology, Last 48 Hours 10/13/16 07:15 Blood Culture - Final Peripheral Venipuncture No growth. 10/17/16 13:42 Blood Culture - Preliminary Peripheral Venipuncture No growth. 10/17/16 13:37 Blood Culture - Preliminary Peripheral Venipuncture No growth. 10/14/16 11:14 Anaerobic Culture - Final Pleural Fluid No anaerobes were recovered. 10/17/16 14:00 Body Fluid Culture - Preliminary Pleural Fluid 10/17/16 15:20 Sputum Culture - Preliminary Sputum Yeast Species 10/17/16 15:30 Urine Culture - Final Urine,Catheterized No growth. 10/13/16 05:43 Blood Culture - Final Peripheral Venipuncture No growth. 10/17/16 14:00 Gram Stain - Final Pleural Fluid 10/14/16 11:14 Body Fluid Culture - Final Pleural Fluid - Clinical Findings Intake & Output: Intake & Output 10/18/16 10/18/16 10/19/16 15:59 23:59 07:59 Intake Total 210 / 210 300 / 300 Output Total 0 / 0 400 / 400 120 / 120 Balance 210 / 210 -100 / -100 -120 / -120 Weight 82.69 kg Consult Discharge Plan - Plan Referrals: Dorys Abraham, RN [facility] [Primary Care Provider] - 11/17/16 1:40 pm
[2016-10-19] MEDS: Budesonide/Formoterol 160/4.5 MDI IH SCH ×2 (08:31→19:41)
[2016-10-19 08:39] LABS: ABG Base Excess -2.4 mEq/L (-2.0 to 3.0); ABG HCO3 24.4 mEQ/L (21-27); ABG Oxygen Saturation 90 % (95-98); ABG PCO2 52 mmHg (35-45); ABG PH 7.28 pH Units (7.32-7.45); ABG PO2 66 mmHg (85-104)
[2016-10-19 08:40] LABS: Blood Gas FiO2 60 %; Blood Gas PEEP 8 cm H2O; Blood Gas Respiration Rate 16; Blood Gas VT 550 cc
[2016-10-19] MEDS ORDERED: Cefepime HCl 2,000 MG in D5% in Water (Mini-Bag+) 100 ML IVPB SCH (09:15)
[2016-10-19] MEDS: Nicotine 21 MG PATCH.TD24 TD SCH ×2 (09:15→14:47)
[2016-10-19] MEDS: Aspirin Enteric Coated 81 MG Tablet PO SCH (09:15)
[2016-10-19] MEDS: Sennosides/Docusate Sodium TABLET PO SCH (09:16)
[2016-10-19] MEDS: Folic Acid 1 MG TABLET PO SCH (09:16)
[2016-10-19] MEDS: Chlorhexidine Rinse 15 ML MOUTHWASH MM SCH (09:16)
[2016-10-19] MEDS: Pantoprazole 40 MG VIAL IVP SCH (09:16)
[2016-10-19] MEDS: Cefepime HCl 2,000 MG in D5% in Water (Mini-Bag+) 100 ML IVPB SCH (09:16)
--- NOTE | 2016-10-19 10:10 | Electrocardiograph Report ---
[place] [id number] Test Date: 2016-10-17 Pat Name: Malcom Hernandez Department: 111 Room: [facility] Gender: M Hematology Nurse: [facility] : 1960 Requested By: Ronald Rubio Order Number: [id number] Reading MD: Justen De La Torre MD Measurements Intervals [place] Rate: 123 P: 72 TX: 123 QRS: 43 QRSD: 86 T: 0 QT: 274 QTc: 347 Interpretive Statements SINUS TACHYCARDIA BASELINE ARTIFACT Electronically Signed On 10-19-2016 10:08:35 EDT by Justen De La Torre MD
[2016-10-19] MEDS: Norepinephrine 4 MG in D5% in Water 250 ML IVC SCH ×2 (10:11→12:30)
--- NOTE | 2016-10-19 11:06 | Palliative Progress Note ---
Date of Encounter: 10/19/16 Time of Encounter: 10:00 - Assessment and plan (1) Abdominal pain Current Visit: Yes Status: Acute Assessment and plan: Patient with facial grimace with light abdominal palpation. BS hypoactive. Patient with no BM noted. K+ 6.2 and kayexalate ordered and will facilitate BM. Patient with lung Ca with metastatic to liver. Liver enzymes elevated. All hepatic toxic meds DC'd. Patient on fentanyl and versed gtt for sedation of pain. Will continue to follow. Qualifiers: Abdominal location: left lower quadrant Qualified Code(s): R10.32 - Left lower quadrant pain (2) Goals of care, counseling/discussion Current Visit: Yes Status: Acute Assessment and plan: Family meeting to discuss GOC with family scheduled at 1300 today. Daughter Jose to arrive from out of town. Patient is DNR-CC - A. Oncology notes reviewed and Nephrology consult pending. Will update and discuss with family. (3) Metastatic lung cancer (metastasis from lung to other site) Current Visit: Yes Status: Acute Assessment and plan: Oncology following Qualifiers: Laterality: unspecified laterality Qualified Code(s): C34.90 - Malignant neoplasm of unspecified part of unspecified bronchus or lung (4) Pneumonia Current Visit: Yes Status: Acute Assessment and plan: Followed by Pulmonolgy Qualifiers: Pneumonia type: due to unspecified organism Laterality: bilateral Lung location: unspecified part of lung Qualified Code(s): J18.9 - Pneumonia, unspecified organism - Time Spent With Patient Total time spent is greater than 50% in coordination of care (as documented) at patient's floor/unit and/or counseling patient: 25 - 35 minutes - Subjective Interval history: Patient intubated and mechanically ventilated. FIO2 50% and Peep 8. Patient opens eyes to name. Receiving versed and fentanyl IV gtt for comfort. - Constitutional Vitals: Abnormal lab results WBC 31.4 K/mcL (4.3-11.1) H* 10/19/16 04:01 RBC 3.27 M/mcL (4.19-5.50) L 10/19/16 04:01 Hgb 7.4 g/dL (12.9-16.9) L 10/19/16 04:01 Hct 25.0 % (37.5-50.1) L 10/19/16 04:01 MCV 76.5 fL (83.0-100.0) L 10/19/16 04:01 MCH 22.6 pg (28.0-33.3) L 10/19/16 04:01 MCHC 29.6 g/dL (31.6-35.5) L 10/19/16 04:01 RDW 19.2 % (11.5-14.5) H 10/19/16 04:01 Plt Count 445 K/mcL (140-400) H 10/19/16 04:01 Band Neutrophils % 12.0 % (0-4) H 10/18/16 03:15 Neutrophils # 28.3 K/mcL (1.6-8.9) H 10/19/16 04:01 Lymphocytes # 0.4 K/mcL (0.6-4.6) L 10/19/16 04:01 Monocytes # 1.9 K/mcL (0.0-1.3) H 10/19/16 04:01 Nucleated RBCs/100 WBC 0.1 /100 WBC (0) H 10/19/16 04:01 Reactive Lymphocytes Present (Not Present) A 10/13/16 01:55 Smudge Cells Present (Not Present) A 10/13/16 01:55 Hypochromasia Present (Not Present) A 10/19/16 04:01 Anisocytosis 1+ (Not Present) A 10/19/16 04:01 Microcytosis Present (Not Present) A 10/17/16 01:42 PT 16.0 Seconds (9.4-12.1) H 10/17/16 08:59 D-Dimer 7167 ng/mLFEU (0-500) H 10/13/16 01:55 ABG pH 7.28 pH Units (7.32-7.45) L 10/19/16 08:28 ABG pCO2 52 mmHg (35-45) H 10/19/16 08:28 ABG pO2 66 mmHg (85-104) L 10/19/16 08:28 ABG O2 Saturation 90 % (95-98) L 10/19/16 08:28 ABG Base Excess -2.4 mEq/L (-2.0 to 3.0) L 10/19/16 08:28 Sodium 132 mEq/L (136-145) L 10/19/16 04:01 Potassium 6.3 mEq/L (3.5-4.5) H 10/19/16 04:01 Chloride 97 mEq/L (98-109) L 10/19/16 04:01 BUN 88 mg/dL (8-26) H 10/19/16 04:01 Creatinine 3.74 mg/dL (0.72-1.25) H 10/19/16 04:01 Est GFR ( Amer) 21 (> 60) L 10/19/16 04:01 Est GFR (Non-Af Amer) 17 (> 60) L 10/19/16 04:01 Glucose 104 mg/dL (70-99) H 10/19/16 04:01 POC Glucose 125 (58-89) H 10/17/16 11:56 Calculated Osmolality 301 (280-300) H 10/19/16 04:01 Calcium 8.3 mg/dL (8.6-10.8) L 10/19/16 04:01 Ionized Calcium 1.02 mmol/L (1.15-1.35) L 10/19/16 04:01 Phosphorus 7.9 mg/dL (2.3-4.7) H 10/19/16 04:01 AST 224 Units/L (5-34) H 10/19/16 04:01 ALT 86 Units/L (0-55) H 10/19/16 04:01 Alkaline Phosphatase 696 Units/L (38-126) H 10/19/16 04:01 Lactate Dehydrogenase 572 Units/L (159-327) H 10/14/16 05:46 Albumin 1.4 g/dL (3.5-5.0) L 10/19/16 04:01 Globulin 5.1 g/dL (2.4-3.5) H 10/19/16 04:01 Albumin/Globulin Ratio 0.3 (1.1-2.2) L 10/19/16 04:01 Lipase 110 Units/L (8-78) H 10/13/16 01:55 Urine Clarity Cloudy (Clear) A 10/18/16 11:07 Ur Specific [place] 1.028 (1.010-1.025) H 10/18/16 11:07 Urine Protein 30 mg/dL (Neg-Trace) H 10/18/16 11:07 Urine Ketones Trace mg/dL (Negative) H 10/18/16 11:07 Urine Bilirubin Small (Negative) H 10/18/16 11:07 Urine Microscopic WBC 3-5 per hpf (0-3) H 10/18/16 11:07 Ur Squamous Epith Cells Many per lpf (None-Few) H 10/18/16 11:07 Pleural Appearance Bloody (Clear) A 10/14/16 11:14 Pleural RBC 0.047 M/mcL (0.000-0.002) H 10/14/16 11:14 Vancomycin Trough 36.2 mcg/mL (10-20) H* 10/19/16 04:01 - Head Head exam: Present: atraumatic, normal inspection, normocephalic - Eye Eye exam: Present: PERRL Pupils: Present: PERRL - ENT ENT exam: Present: mucous membranes moist - Neck Neck exam: Present: full ROM - Respiratory Respiratory exam: Present: decreased breath sounds, rhonchi - Expanded Respiratory Exam Location: decreased breath sounds: Left, Right, Lower, rhonchi: Left, Right, Upper (scattered) - Cardiovascular Cardiovascular exam: Present: RRR, +S1, +S2 Additional comments: left foot 3+ pedal edema. - Expanded Cardiovascular Exam Peripheral pulses: 0: Dorsalis Pedis (R) PM, 1+: Femoral (L) PM, Femoral (R) PM , Posterior Tibialis (L), Posterior Tibialis (R), Dorsalis Pedis (L) PM, 2+: Carotid (L) PM, Carotid (R) PM, Radial (L), Radial (R) - GI/Abdominal GI/Abdominal exam: Present: distended, firm, hypoactive bowel sounds, tenderness - Rectal Rectal exam: Present: deferred - Additional comments: Pitts catheter with no urine - Extremities Exam Extremities exam: Present: pedal edema (left foot 3+ pitting) - Neurological Exam Neurological exam: Present: alert (ET tube in place, nonverbal) - Psychiatric Psychiatric exam: Present: normal affect - Skin Skin exam: Present: pallor, warm Palliative Quality Palliative Quality: Screen for Code Status: Yes, Screen for Goals of Care: Yes, Screen for Pain: Yes, If Pain Regimen Started, Initiate Bowel Regimen: Yes, Screen for Nausea/Vomitting: Yes Code Status: 10/13/16 05:01 Resuscitation Status: Active [RES] Routine Comment: Resuscitation Status: Full Code 10/17/16 10:35 CODE [Resuscitation Status: Active] [RES] Routine Comment: Resuscitation Status: DNR-Comfort Care-Arrest - Labs CBC & Chem 7: 10/19/16 04:01 10/19/16 04:01 Labs: Laboratory Results - last 24 hr 10/18/16 10/18/16 10/18/16 11:07 12:54 16:00 WBC 29.4 H RBC 3.23 L Hgb 7.4 L Hct 24.7 L MCV 76.5 L MCH 22.9 L MCHC 30.0 L RDW 19.0 H Plt Count 451 H MPV 10.2 Immature Gran % 3.0 Seg Neutrophils % 90.7 Lymphocytes % 1.4 Monocytes % 4.8 Eosinophils % 0.0 Basophils % 0.1 Neutrophils # 26.7 H Lymphocytes # 0.4 L Monocytes # 1.4 H Eosinophils # 0.0 Basophils # 0.0 Nucleated RBCs/100 WBC 0.2 H Platelet Estimate Increased H Immature Plt Fraction 3.8 Hypochromasia Anisocytosis ABG pH ABG pCO2 ABG pO2 ABG HCO3 ABG Total CO2 ABG O2 Saturation ABG Base Excess Respiration Rate Blood Gas Modality Inspired O2 Tidal Volume PEEP Sodium Potassium Chloride Carbon Dioxide BUN Creatinine Est GFR ( Amer) Est GFR (Non-Af Amer) BUN/Creatinine Ratio Glucose Calculated Osmolality Calcium Ionized Calcium Phosphorus Magnesium Total Bilirubin Direct Bilirubin Indirect Bilirubin AST ALT Alkaline Phosphatase Serum Total Protein Albumin Globulin Albumin/Globulin Ratio Urine Color Dark Yellow Urine Clarity Cloudy A Urine pH 5.0 Ur Specific [place] 1.028 H Urine Protein 30 H Urine Glucose (UA) Normal Urine Ketones Trace H Urine Blood Negative Urine Nitrite Negative Urine Bilirubin Small H Urine Urobilinogen Normal Ur Leukocyte Esterase Negative Urine Microscopic RBC 0-3 Urine Microscopic WBC 3-5 H Ur Squamous Epith Cells Many H Urine Bacteria None Seen Hyaline Casts None Seen Ur Culture Indicated? NO Vancomycin Trough Random Vancomycin 40.5 10/18/16 10/19/16 10/19/16 16:00 04:01 04:01 WBC 31.4 H* RBC 3.27 L Hgb 7.4 L Hct 25.0 L MCV 76.5 L MCH 22.6 L MCHC 29.6 L RDW 19.2 H Plt Count 445 H MPV 10.4 Immature Gran % 2.8 Seg Neutrophils % 90.0 Lymphocytes % 1.1 Monocytes % 6.0 Eosinophils % 0.0 Basophils % 0.1 Neutrophils # 28.3 H Lymphocytes # 0.4 L Monocytes # 1.9 H Eosinophils # 0.0 Basophils # 0.0 Nucleated RBCs/100 WBC 0.1 H Platelet Estimate Normal Immature Plt Fraction Hypochromasia Present A Anisocytosis 1+ A ABG pH ABG pCO2 ABG pO2 ABG HCO3 ABG Total CO2 ABG O2 Saturation ABG Base Excess Respiration Rate Blood Gas Modality Inspired O2 Tidal Volume PEEP Sodium 132 L 132 L Potassium 5.8 H 6.3 H Chloride 97 L 97 L Carbon Dioxide 24 24 BUN 78 H 88 H Creatinine 2.86 H 3.74 H Est GFR ( Amer) 28 L 21 L Est GFR (Non-Af Amer) 23 L 17 L BUN/Creatinine Ratio 27 H 24 Glucose 117 H 104 H Calculated Osmolality 298 301 H Calcium 8.4 L 8.3 L Ionized Calcium 1.02 L Phosphorus 7.2 H 7.9 H Magnesium 2.4 Total Bilirubin 0.4 Direct Bilirubin 0.4 Indirect Bilirubin 0.0 AST 224 H ALT 86 H Alkaline Phosphatase 696 H Serum Total Protein 6.5 Albumin 1.5 L 1.4 L Globulin 5.1 H Albumin/Globulin Ratio 0.3 L Urine Color Urine Clarity Urine pH Ur Specific [place] Urine Protein Urine Glucose (UA) Urine Ketones Urine Blood Urine Nitrite Urine Bilirubin Urine Urobilinogen Ur Leukocyte Esterase Urine Microscopic RBC Urine Microscopic WBC Ur Squamous Epith Cells Urine Bacteria Hyaline Casts Ur Culture Indicated? Vancomycin Trough Random Vancomycin 10/19/16 10/19/16 10/19/16 04:01 05:33 08:28 WBC RBC Hgb Hct MCV MCH MCHC RDW Plt Count MPV Immature Gran % Seg Neutrophils % Lymphocytes % Monocytes % Eosinophils % Basophils % Neutrophils # Lymphocytes # Monocytes # Eosinophils # Basophils # Nucleated RBCs/100 WBC Platelet Estimate Immature Plt Fraction Hypochromasia Anisocytosis ABG pH 7.26 L 7.28 L ABG pCO2 53 H 52 H ABG pO2 86 66 L ABG HCO3 23.8 24.4 ABG Total CO2 25.4 26.0 ABG O2 Saturation 95 90 L ABG Base Excess -3.3 L -2.4 L Respiration Rate 16 Blood Gas Modality PC VC+ Inspired O2 70 60 Tidal Volume 550 PEEP 8 Sodium Potassium Chloride Carbon Dioxide BUN Creatinine Est GFR ( Amer) Est GFR (Non-Af Amer) BUN/Creatinine Ratio Glucose Calculated Osmolality Calcium Ionized Calcium Phosphorus Magnesium Total Bilirubin Direct Bilirubin Indirect Bilirubin AST ALT Alkaline Phosphatase Serum Total Protein Albumin Globulin Albumin/Globulin Ratio Urine Color Urine Clarity Urine pH Ur Specific [place] Urine Protein Urine Glucose (UA) Urine Ketones Urine Blood Urine Nitrite Urine Bilirubin Urine Urobilinogen Ur Leukocyte Esterase Urine Microscopic RBC Urine Microscopic WBC Ur Squamous Epith Cells Urine Bacteria Hyaline Casts Ur Culture Indicated? Vancomycin Trough 36.2 H* Random Vancomycin - ABG Interpretation ABG results: ABG ABG pH 7.28 pH Units (7.32-7.45) L 10/19/16 08:28 ABG pCO2 52 mmHg (35-45) H 10/19/16 08:28 ABG pO2 66 mmHg (85-104) L 10/19/16 08:28 ABG O2 Saturation 90 % (95-98) L 10/19/16 08:28 PT/INR, D-dimer PT 16.0 Seconds (9.4-12.1) H 10/17/16 08:59 D-Dimer 7167 ng/mLFEU (0-500) H 10/13/16 01:55 Consult Discharge Plan - Plan Referrals: Dorys Abraham [facility] [Primary Care Provider] - 11/17/16 1:40 pm
[2016-10-19] MEDS ORDERED: 0.9 % Sodium Chloride 500 ML IVC ONE (11:52)
[2016-10-19] MEDS ORDERED: Azithromycin 500 MG in D5% in Water 250 ML IVPB SCH (12:00)
--- NOTE | 2016-10-19 15:15 | Event Note ---
Date of Encounter: 10/19/16 Time of Encounter: 15:00 Family meeting planned for 1300 still awaiting arrival of daughter Jose from out of town but she has yet to arrive. Stephie Tsela had to go to work. Patient has friends at bedside. Attempted to call daughter but no answer and unable to leave voicemail d/t no set-up on phone. Will follow-up when and if daughter arrives.
--- NOTE | 2016-10-19 15:31 | Pulmonology Progress Note ---
<Marisa Dalal - Last Filed: 10/19/16 18:15> Date of Encounter: 10/19/16 Time of Encounter: 15:31 Assessment and Plan (1) Acute and chronic respiratory failure Current Visit: Yes Status: Acute Neuropsych: Currently intubated and sedated for comfort on the vent. Pulm: Acute on chronic hypoxic hypercapnic respiratory failure which appears acutely worsen secondary to pneumonia. Complicated by metastatic NSCLC with malignant pleural effusion and COPD. Ventilator bundle was ordered to prevent ventilator associated pneumonia. GI: NPO. PPI prophylaxis given. Elevated liver enzymes with AST at 224, ALT at 86, and Alk Phosphatase at 696. Hepatic toxic meds discontinued including Tylenol and statin. Renal was consulted and Dr. Baird was notified about patient's BUN and creatine levels. Potassium levels were elevated at 6.3. Yesterday K+ levels were 5.8. I ordered Kayexlate to help with the hyperkalemia and facilitate bowel movements. Renal: RONDA with current BUN at 88 and creatinine at 3.74. Yesterday BUN and creatinine was 78 and 2.86 respectively. ID: Negative culture. d/c vancomysin. WBCs elevated at 31.4. Yesterday WBCs levels were 29.4. Ordered Azithromycin to cover possible atypical organisms. Heme/Onc: DVT prpphylaxis given with low molecular weight heparin. Endo: Monitor glucose. Skin/MSK: Skin care per routine ICU protocol to prevent ulcers. Examine all lines to ensure no evidence of infection. CODE: DNR Qualifiers: Respiratory failure complication: hypoxia and hypercapnia Qualified Code(s) : J96.21 - Acute and chronic respiratory failure with hypoxia; J96.22 - Acute and chronic respiratory failure with hypercapnia (2) Acute exacerbation of chronic obstructive airways disease Current Visit: Yes Status: Acute Changed 40 mg IVP methylprednisolone to Q8HR (3) Hyperkalemia, diminished renal excretion Current Visit: Yes Status: Acute (4) Leukocytosis Current Visit: Yes Status: Acute Patient's WBCs is currently at 31.4. Yesterday WBCs was 29.4. Possibly secondary to pneumonia or metastatic lung cancer. Added Azithromyin 500 mg IV Q24 to cover possible atypical organisms. Culture was negative therefore discontinued vancomysin. Qualifiers: Leukocytosis type: other Qualified Code(s): D72.828 - Other elevated white blood cell count (5) Pneumonia Current Visit: Yes Status: Acute Qualifiers: Pneumonia type: due to unspecified organism Laterality: bilateral Lung location: unspecified part of lung Qualified Code(s): J18.9 - Pneumonia, unspecified organism (6) Metastatic lung cancer (metastasis from lung to other site) Current Visit: Yes Status: Chronic Qualifiers: Laterality: unspecified laterality Qualified Code(s): C34.90 - Malignant neoplasm of unspecified part of unspecified bronchus or lung (7) Pleural effusion Current Visit: Yes Status: Acute (8) DVT prophylaxis Current Visit: No Status: Acute Discontinued Lovenox. Switched to Heparin 5,000 unit SQ Q12H Subjective Principal diagnosis: Pneumonia Objective PUL Vital signs: Last Vital Signs Temp 97.6 F 10/19/16 11:08 Pulse 105 10/19/16 15:00 Resp 17 10/19/16 15:00 BP 85/57 10/19/16 15:00 Pulse Ox 90 10/19/16 15:00 General appearance: other (Sedated and appears comfortable on vent) Eyes: icteric Auscultation: bilateral: diminished breath sounds, rhonchi Cardiovascular: regular rate and rhythm Gastrointestinal: hypoactive bowel sounds, other (Abdomen appears distended.Slight facial grimace with palpation. Family states pt last BM was approximately one week ago. ) Extremities: pulses normal, edema (Left lower extremity has +1 pitting edema) Ventilator Settings Ventilator Settings: Ventilator Settings, Last 8 Hours Ventilator Mode VC+ Ventilator Mode VC+ Ventilator Mode VC+ Ventilator Mode VC+ Ventilator Mode VC+ Ventilator Mode VC+ Ventilator Mode VC+ Ventilator Mode VC+ Ventilator Mode VC+ Ventilator Mode VC+ Ventilator Mode VC+ Ventilator Mode VC+ Ventilator Tidal Volume 600 Setting Ventilator Tidal Volume 600 Setting Ventilator Tidal Volume 600 Setting Ventilator Tidal Volume 600 Setting Ventilator Tidal Volume 600 Setting Ventilator Tidal Volume 600 Setting Ventilator Tidal Volume 600 Setting Ventilator Tidal Volume 600 Setting Ventilator Tidal Volume 550 Setting Ventilator Tidal Volume 550 Setting Ventilator Tidal Volume 550 Setting Ventilator Tidal Volume 550 Setting Ventilator Respiratory Rate 16 Setting Ventilator Respiratory Rate 16 Setting Ventilator Respiratory Rate 16 Setting Ventilator Respiratory Rate 16 Setting Ventilator Respiratory Rate 16 Setting Ventilator Respiratory Rate 16 Setting Ventilator Respiratory Rate 16 Setting Ventilator Respiratory Rate 16 Setting Ventilator Respiratory Rate 16 Setting Ventilator Respiratory Rate 16 Setting Ventilator Respiratory Rate 16 Setting Ventilator Respiratory Rate 16 Setting Actual Respiratory Rate 16 Actual Respiratory Rate 16 Actual Respiratory Rate 16 Actual Respiratory Rate 16 Actual Respiratory Rate 16 Actual Respiratory Rate 16 Actual Respiratory Rate 17 Actual Respiratory Rate 17 Actual Respiratory Rate 18 Positive End Expiratory 8 Pressure Positive End Expiratory 8 Pressure Positive End Expiratory 8 Pressure Positive End Expiratory 8 Pressure Positive End Expiratory 8 Pressure Positive End Expiratory 8 Pressure Positive End Expiratory 8 Pressure Positive End Expiratory 8 Pressure Positive End Expiratory 8 Pressure Positive End Expiratory 8 Pressure Positive End Expiratory 8 Pressure Positive End Expiratory 8 Pressure Peak Inspiratory Airway 45 Pressure Peak Inspiratory Airway 45 Pressure Peak Inspiratory Airway 45 Pressure Peak Inspiratory Airway 49 Pressure Peak Inspiratory Airway 49 Pressure Peak Inspiratory Airway 49 Pressure Peak Inspiratory Airway 48 Pressure Peak Inspiratory Airway 38 Pressure Results - Laboratory Findings CBC and BMP: 10/19/16 04:01 10/19/16 04:01 ABG ABG pH 7.28 pH Units (7.32-7.45) L 10/19/16 08:28 ABG pCO2 52 mmHg (35-45) H 10/19/16 08:28 ABG pO2 66 mmHg (85-104) L 10/19/16 08:28 ABG O2 Saturation 90 % (95-98) L 10/19/16 08:28 PT/INR, D-dimer PT 16.0 Seconds (9.4-12.1) H 10/17/16 08:59 D-Dimer 7167 ng/mLFEU (0-500) H 10/13/16 01:55 Abnormal lab findings: Abnormal lab results WBC 31.4 K/mcL (4.3-11.1) H* 10/19/16 04:01 RBC 3.27 M/mcL (4.19-5.50) L 10/19/16 04:01 Hgb 7.4 g/dL (12.9-16.9) L 10/19/16 04:01 Hct 25.0 % (37.5-50.1) L 10/19/16 04:01 MCV 76.5 fL (83.0-100.0) L 10/19/16 04:01 MCH 22.6 pg (28.0-33.3) L 10/19/16 04:01 MCHC 29.6 g/dL (31.6-35.5) L 10/19/16 04:01 RDW 19.2 % (11.5-14.5) H 10/19/16 04:01 Plt Count 445 K/mcL (140-400) H 10/19/16 04:01 Band Neutrophils % 12.0 % (0-4) H 10/18/16 03:15 Neutrophils # 28.3 K/mcL (1.6-8.9) H 10/19/16 04:01 Lymphocytes # 0.4 K/mcL (0.6-4.6) L 10/19/16 04:01 Monocytes # 1.9 K/mcL (0.0-1.3) H 10/19/16 04:01 Nucleated RBCs/100 WBC 0.1 /100 WBC (0) H 10/19/16 04:01 Reactive Lymphocytes Present (Not Present) A 10/13/16 01:55 Smudge Cells Present (Not Present) A 10/13/16 01:55 Hypochromasia Present (Not Present) A 10/19/16 04:01 Anisocytosis 1+ (Not Present) A 10/19/16 04:01 Microcytosis Present (Not Present) A 10/17/16 01:42 PT 16.0 Seconds (9.4-12.1) H 10/17/16 08:59 D-Dimer 7167 ng/mLFEU (0-500) H 10/13/16 01:55 ABG pH 7.28 pH Units (7.32-7.45) L 10/19/16 08:28 ABG pCO2 52 mmHg (35-45) H 10/19/16 08:28 ABG pO2 66 mmHg (85-104) L 10/19/16 08:28 ABG O2 Saturation 90 % (95-98) L 10/19/16 08:28 ABG Base Excess -2.4 mEq/L (-2.0 to 3.0) L 10/19/16 08:28 Sodium 132 mEq/L (136-145) L 10/19/16 04:01 Potassium 6.3 mEq/L (3.5-4.5) H 10/19/16 04:01 Chloride 97 mEq/L (98-109) L 10/19/16 04:01 BUN 88 mg/dL (8-26) H 10/19/16 04:01 Creatinine 3.74 mg/dL (0.72-1.25) H 10/19/16 04:01 Est GFR ( Amer) 21 (> 60) L 10/19/16 04:01 Est GFR (Non-Af Amer) 17 (> 60) L 10/19/16 04:01 Glucose 104 mg/dL (70-99) H 10/19/16 04:01 POC Glucose 125 (58-89) H 10/17/16 11:56 Calculated Osmolality 301 (280-300) H 10/19/16 04:01 Calcium 8.3 mg/dL (8.6-10.8) L 10/19/16 04:01 Ionized Calcium 1.02 mmol/L (1.15-1.35) L 10/19/16 04:01 Phosphorus 7.9 mg/dL (2.3-4.7) H 10/19/16 04:01 AST 224 Units/L (5-34) H 10/19/16 04:01 ALT 86 Units/L (0-55) H 10/19/16 04:01 Alkaline Phosphatase 696 Units/L (38-126) H 10/19/16 04:01 Lactate Dehydrogenase 572 Units/L (159-327) H 10/14/16 05:46 Albumin 1.4 g/dL (3.5-5.0) L 10/19/16 04:01 Globulin 5.1 g/dL (2.4-3.5) H 10/19/16 04:01 Albumin/Globulin Ratio 0.3 (1.1-2.2) L 10/19/16 04:01 Lipase 110 Units/L (8-78) H 10/13/16 01:55 Urine Clarity Cloudy (Clear) A 10/18/16 11:07 Ur Specific [place] 1.028 (1.010-1.025) H 10/18/16 11:07 Urine Protein 30 mg/dL (Neg-Trace) H 10/18/16 11:07 Urine Ketones Trace mg/dL (Negative) H 10/18/16 11:07 Urine Bilirubin Small (Negative) H 10/18/16 11:07 Urine Microscopic WBC 3-5 per hpf (0-3) H 10/18/16 11:07 Ur Squamous Epith Cells Many per lpf (None-Few) H 10/18/16 11:07 Pleural Appearance Bloody (Clear) A 10/14/16 11:14 Pleural RBC 0.047 M/mcL (0.000-0.002) H 10/14/16 11:14 Vancomycin Trough 36.2 mcg/mL (10-20) H* 10/19/16 04:01 - Microbiology Findings Microbiology Findings: Microbiology, Last 48 Hours 10/13/16 07:15 Blood Culture - Final Peripheral Venipuncture No growth. 10/17/16 13:42 Blood Culture - Preliminary Peripheral Venipuncture No growth. 10/17/16 13:37 Blood Culture - Preliminary Peripheral Venipuncture No growth. 10/14/16 11:14 Anaerobic Culture - Final Pleural Fluid No anaerobes were recovered. 10/17/16 14:00 Body Fluid Culture - Preliminary Pleural Fluid 10/17/16 15:20 Sputum Culture - Preliminary Sputum Yeast Species 10/17/16 15:30 Urine Culture - Final Urine,Catheterized No growth. 10/13/16 05:43 Blood Culture - Final Peripheral Venipuncture No growth. 10/17/16 14:00 Gram Stain - Final Pleural Fluid 10/14/16 11:14 Body Fluid Culture - Final Pleural Fluid - Clinical Findings Intake & Output: Intake & Output 10/18/16 10/19/16 10/19/16 23:59 07:59 15:59 Intake Total 300 / 300 325 / 325 Output Total 400 / 400 120 / 120 Balance -100 / -100 -120 / -120 325 / 325 Weight 82.69 kg Consult Discharge Plan - Plan Referrals: Dorys Abraham, [employer] [Primary Care Provider] - 11/17/16 1:40 pm <Augustine James - Last Filed: 10/19/16 18:17> Date of Encounter: 10/19/16 Objective PUL Vital signs: Last Vital Signs Temp 97.5 F L 10/19/16 15:45 Pulse 107 10/19/16 17:00 Resp 17 10/19/16 17:00 BP 76/57 10/19/16 17:00 Pulse Ox 90 10/19/16 17:00 Ventilator Settings Ventilator Settings: Ventilator Settings, Last 8 Hours Ventilator Mode VC+ Ventilator Mode VC+ Ventilator Mode VC+ Ventilator Mode VC+ Ventilator Mode VC+ Ventilator Mode VC+ Ventilator Mode VC+ Ventilator Mode VC+ Ventilator Mode VC+ Ventilator Mode VC+ Ventilator Mode VC+ Ventilator Mode VC+ Ventilator Tidal Volume 600 Setting Ventilator Tidal Volume 600 Setting Ventilator Tidal Volume 600 Setting Ventilator Tidal Volume 600 Setting Ventilator Tidal Volume 600 Setting Ventilator Tidal Volume 600 Setting Ventilator Tidal Volume 600 Setting Ventilator Tidal Volume 600 Setting Ventilator Tidal Volume 600 Setting Ventilator Tidal Volume 600 Setting Ventilator Tidal Volume 600 Setting Ventilator Tidal Volume 550 Setting Ventilator Respiratory Rate 16 Setting Ventilator Respiratory Rate 16 Setting Ventilator Respiratory Rate 16 Setting Ventilator Respiratory Rate 16 Setting Ventilator Respiratory Rate 16 Setting Ventilator Respiratory Rate 16 Setting Ventilator Respiratory Rate 16 Setting Ventilator Respiratory Rate 16 Setting Ventilator Respiratory Rate 16 Setting Ventilator Respiratory Rate 16 Setting Ventilator Respiratory Rate 16 Setting Ventilator Respiratory Rate 16 Setting Actual Respiratory Rate 17 Actual Respiratory Rate 17 Actual Respiratory Rate 17 Actual Respiratory Rate 16 Actual Respiratory Rate 16 Actual Respiratory Rate 16 Actual Respiratory Rate 16 Actual Respiratory Rate 16 Actual Respiratory Rate 16 Actual Respiratory Rate 17 Actual Respiratory Rate 17 Positive End Expiratory 8 Pressure Positive End Expiratory 8 Pressure Positive End Expiratory 8 Pressure Positive End Expiratory 8 Pressure Positive End Expiratory 8 Pressure Positive End Expiratory 8 Pressure Positive End Expiratory 8 Pressure Positive End Expiratory 8 Pressure Positive End Expiratory 8 Pressure Positive End Expiratory 8 Pressure Positive End Expiratory 8 Pressure Positive End Expiratory 8 Pressure Peak Inspiratory Airway 45 Pressure Peak Inspiratory Airway 45 Pressure Peak Inspiratory Airway 45 Pressure Peak Inspiratory Airway 45 Pressure Peak Inspiratory Airway 45 Pressure Peak Inspiratory Airway 45 Pressure Peak Inspiratory Airway 49 Pressure Peak Inspiratory Airway 49 Pressure Peak Inspiratory Airway 49 Pressure Peak Inspiratory Airway 48 Pressure Results - Laboratory Findings CBC and BMP: 10/19/16 04:01 10/19/16 04:01 ABG ABG pH 7.28 pH Units (7.32-7.45) L 10/19/16 08:28 ABG pCO2 52 mmHg (35-45) H 10/19/16 08:28 ABG pO2 66 mmHg (85-104) L 10/19/16 08:28 ABG O2 Saturation 90 % (95-98) L 10/19/16 08:28 PT/INR, D-dimer PT 16.0 Seconds (9.4-12.1) H 10/17/16 08:59 D-Dimer 7167 ng/mLFEU (0-500) H 10/13/16 01:55 Abnormal lab findings: Abnormal lab results WBC 31.4 K/mcL (4.3-11.1) H* 10/19/16 04:01 RBC 3.27 M/mcL (4.19-5.50) L 10/19/16 04:01 Hgb 7.4 g/dL (12.9-16.9) L 10/19/16 04:01 Hct 25.0 % (37.5-50.1) L 10/19/16 04:01 MCV 76.5 fL (83.0-100.0) L 10/19/16 04:01 MCH 22.6 pg (28.0-33.3) L 10/19/16 04:01 MCHC 29.6 g/dL (31.6-35.5) L 10/19/16 04:01 RDW 19.2 % (11.5-14.5) H 10/19/16 04:01 Plt Count 445 K/mcL (140-400) H 10/19/16 04:01 Band Neutrophils % 12.0 % (0-4) H 10/18/16 03:15 Neutrophils # 28.3 K/mcL (1.6-8.9) H 10/19/16 04:01 Lymphocytes # 0.4 K/mcL (0.6-4.6) L 10/19/16 04:01 Monocytes # 1.9 K/mcL (0.0-1.3) H 10/19/16 04:01 Nucleated RBCs/100 WBC 0.1 /100 WBC (0) H 10/19/16 04:01 Reactive Lymphocytes Present (Not Present) A 10/13/16 01:55 Smudge Cells Present (Not Present) A 10/13/16 01:55 Hypochromasia Present (Not Present) A 10/19/16 04:01 Anisocytosis 1+ (Not Present) A 10/19/16 04:01 Microcytosis Present (Not Present) A 10/17/16 01:42 PT 16.0 Seconds (9.4-12.1) H 10/17/16 08:59 D-Dimer 7167 ng/mLFEU (0-500) H 10/13/16 01:55 ABG pH 7.28 pH Units (7.32-7.45) L 10/19/16 08:28 ABG pCO2 52 mmHg (35-45) H 10/19/16 08:28 ABG pO2 66 mmHg (85-104) L 10/19/16 08:28 ABG O2 Saturation 90 % (95-98) L 10/19/16 08:28 ABG Base Excess -2.4 mEq/L (-2.0 to 3.0) L 10/19/16 08:28 Sodium 132 mEq/L (136-145) L 10/19/16 04:01 Potassium 6.3 mEq/L (3.5-4.5) H 10/19/16 04:01 Chloride 97 mEq/L (98-109) L 10/19/16 04:01 BUN 88 mg/dL (8-26) H 10/19/16 04:01 Creatinine 3.74 mg/dL (0.72-1.25) H 10/19/16 04:01 Est GFR ( Amer) 21 (> 60) L 10/19/16 04:01 Est GFR (Non-Af Amer) 17 (> 60) L 10/19/16 04:01 Glucose 104 mg/dL (70-99) H 10/19/16 04:01 POC Glucose 125 (58-89) H 10/17/16 11:56 Calculated Osmolality 301 (280-300) H 10/19/16 04:01 Calcium 8.3 mg/dL (8.6-10.8) L 10/19/16 04:01 Ionized Calcium 1.02 mmol/L (1.15-1.35) L 10/19/16 04:01 Phosphorus 7.9 mg/dL (2.3-4.7) H 10/19/16 04:01 AST 224 Units/L (5-34) H 10/19/16 04:01 ALT 86 Units/L (0-55) H 10/19/16 04:01 Alkaline Phosphatase 696 Units/L (38-126) H 10/19/16 04:01 Lactate Dehydrogenase 572 Units/L (159-327) H 10/14/16 05:46 Albumin 1.4 g/dL (3.5-5.0) L 10/19/16 04:01 Globulin 5.1 g/dL (2.4-3.5) H 10/19/16 04:01 Albumin/Globulin Ratio 0.3 (1.1-2.2) L 10/19/16 04:01 Lipase 110 Units/L (8-78) H 10/13/16 01:55 Urine Clarity Cloudy (Clear) A 10/18/16 11:07 Ur Specific [place] 1.028 (1.010-1.025) H 10/18/16 11:07 Urine Protein 30 mg/dL (Neg-Trace) H 10/18/16 11:07 Urine Ketones Trace mg/dL (Negative) H 10/18/16 11:07 Urine Bilirubin Small (Negative) H 10/18/16 11:07 Urine Microscopic WBC 3-5 per hpf (0-3) H 10/18/16 11:07 Ur Squamous Epith Cells Many per lpf (None-Few) H 10/18/16 11:07 Pleural Appearance Bloody (Clear) A 10/14/16 11:14 Pleural RBC 0.047 M/mcL (0.000-0.002) H 10/14/16 11:14 Vancomycin Trough 36.2 mcg/mL (10-20) H* 10/19/16 04:01 - Microbiology Findings Microbiology Findings: Microbiology, Last 48 Hours 10/13/16 07:15 Blood Culture - Final Peripheral Venipuncture No growth. 10/17/16 13:42 Blood Culture - Preliminary Peripheral Venipuncture No growth. 10/17/16 13:37 Blood Culture - Preliminary Peripheral Venipuncture No growth. 10/14/16 11:14 Anaerobic Culture - Final Pleural Fluid No anaerobes were recovered. 10/17/16 14:00 Body Fluid Culture - Preliminary Pleural Fluid 10/17/16 15:20 Sputum Culture - Preliminary Sputum Yeast Species 10/17/16 15:30 Urine Culture - Final Urine,Catheterized No growth. 10/13/16 05:43 Blood Culture - Final Peripheral Venipuncture No growth. 10/17/16 14:00 Gram Stain - Final Pleural Fluid - Clinical Findings Intake & Output: Intake & Output 10/19/16 10/19/16 10/19/16 07:59 15:59 23:59 Intake Total 575 / 575 100 / 100 Output Total 120 / 120 250 / 250 Balance -120 / -120 575 / 575 -150 / -150 Weight 82.69 kg - Attending Attestation I examined this patient and my medical decision-making was reviewed with the CORPORATE COMPLIANCE DIRECTOR/PA/Advanced Practice Nurse/Resident Physician. I agree with the documented findings, disposition and treatment plan as described except to the extent set forth below. Patient seen and examined. Labs, radiology, chart personally reviewed. 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 It might be difficult this patient to be liberated from the mechanical ventilation due to his underlying comorbidities. Cardiovascular: Hypotension which I suspect multifactorial. Patient on pressors. GI: Nutrition per dietary and GI prophylaxis per routine. Abdominal distention we will need to image with CT. Heme: DVT prophylaxis per routine ID: Continue antibiotics and plan to de-escalation. Suspect septic shock at coverage for atypical infection and check lactic acid. Renal; urine out put and renal funtion reviewed. Nephrology consultation for their opinion regarding his renal function. Endorcine: blood glucose is monitored Lines: all lines checked and no evidence of infections Skin: skin care to prevent pressure ulcers per nursing routine care Overall prognosis is very poor and appreciated palliative care input. I spent 35 min of Critical Care time with this patient. It involved decision making of high complexity to assess, manipulate, and support vital organ system failure and/or to prevent further life threatening deterioration of the patient' s condition. The time involved in the performance of separately reportable procedures was not counted toward critical care time.
[2016-10-19] MEDS ORDERED: MethylPREDNISolone 40 MG/ML VIAL IVP SCH (16:00)
[2016-10-19] MEDS: FentaNYL (PF) 1,000 MCG in 0.9 % Sodium Chloride 80 ML IVC SCH (17:35)
[2016-10-19 17:39] VITALS: BP 76/57
[2016-10-19] MEDS ORDERED: *HR* Heparin 5,000 UNIT/ML VIAL SQ SCH (18:00)
--- NOTE | 2016-10-19 18:21 | Death Note ---
<Marisa Dalal - Last Filed: 10/19/16 18:17> Discharge Sum: Summary - Date and Time Date of admission: 10/13/16 04:28 Date of : 10/19/16 Time of : 18:07 - Summary Details: Patient return from CT. Patient's family at bedside. Directly after the patient's family left, the patient became cyanotic about the face, had a fixed stare, and had no palpable carotid or femoral pulse. Patient was a DNRA. CPR was not performed as per patient's wishes. Time of was noted and ventilator was turned off. Patient was initially in PEA and quickly turned into asystole. - Additional Data Confirmation of as documented by pronouncing clinician: no pulse, no heart sounds, pupils fixed and dilated Family: contacted Attending/PCP notified?: No Attending physician: Shanta Matias MD Was code activated?: No Autopsy requested?: No automobile insurance claim examiner notified?: No Organ bank notified?: No Advance directives: Yes Hospice patient?: No Discharge Sum: Diag - PCOD Probable Cause of : Cardiorespiratory arrest Discharge Sum: Prov - Provider Primary care physician: Dorys Abraham CNP Admitting clinician: Jovanna Hamilton Consults: 10/13/16 05:40 Consult to Pulmonology [CONS] Routine Consulting Provider: Pulm Crit Care & Sleep [place] Reason for Consult: Lung CA/PNA Call Completed: Yes 10/16/16 13:04 Consult to Oncology Hematology [CONS] Routine Consulting Provider: Charlene Winston Reason for Consult: Lung cancer with malignant pleural effusion Time Notified: 13:04 Call Completed: Yes 10/17/16 14:50 Consult to Palliative Care [CONS] Routine Comment: Consulting Provider: Palliative Care [place] Reason for Consult: goals of care Call Completed: Yes 10/18/16 11:15 Consult to Dehydrogenation Operator [CONS] Routine Reason for SW Consult: end of life planning. Daughter/NOK lives in [place], will be here around 1:00 pm tomorrow. 10/19/16 13:22 Consult to Nephrology [CONS] Routine Consulting Provider: [facility] [place] Reason for Consult: New RONDA Call Completed: Yes Pronouncing clinician: Marisa Dalal <Augustine James M - Last Filed: 10/20/16 17:44> Discharge Sum: Summary - Date and Time Date of admission: 10/13/16 04:28 - Additional Data Attending physician: Shanta Matias MD Discharge Sum: Prov - Provider Primary care physician: Dorys Abraham CNP Consults: 10/13/16 05:40 Consult to Pulmonology [CONS] Routine Consulting Provider: Pulm Crit Care [facility] Sleep [place] Reason for Consult: Lung CA/PNA Call Completed: Yes 10/16/16 13:04 Consult to Oncology Hematology [CONS] Routine Consulting Provider: Charlene Winston Reason for Consult: Lung cancer with malignant pleural effusion Time Notified: 13:04 Call Completed: Yes 10/17/16 14:50 Consult to Palliative Care [CONS] Routine Comment: Consulting Provider: Palliative Care [place] Reason for Consult: goals of care Call Completed: Yes 10/18/16 11:15 Consult to Dehydrogenation Operator [CONS] Routine Reason for SW Consult: end of life planning. Daughter/NOK lives in [place], will be here around 1:00 pm tomorrow. 10/19/16 13:22 Consult to Nephrology [CONS] Routine Consulting Provider: [facility] Reason for Consult: New RONDA Call Completed: Yes - Attending Attestation I examined this patient and my medical decision-making was reviewed with the AD COPY WRITER/PA/Advanced Practice Nurse/Resident Physician. I agree with the documented findings, disposition and treatment plan as described except to the extent set forth below. Patient with extremely poor prognosis and progressively his shock worsened and eventually patient .
[2016-10-19] MEDS ORDERED: Aminoglycoside Consult 1 EACH MC ONE (20:29)
[2016-10-20] MEDS ORDERED: *HR* Enoxaparin 30 MG/0.3 ML SYRINGE SQ SCH (06:00)
== END 2016-10-19 20:30 | disposition expired | DRG 871 ==
LOC: EMEROO 01:21 → 2NENU 04:28 → SUATTDRO 04:28 → 2NENU 05:13 → ICNU 10-17 09:30
PROVIDERS: ADMIT Internal Medicine; ATTEND Internal Medicine